=== PATIENT | male | born 1950 | race Caucasian/White ===

== ENCOUNTER → 2018-09-04 07:35 | Outpatient (CLI) | payer MEDICARE, OTHER, SELFPAY ==
[2018-09-04 08:43] LABS: INR 1.2 (0.9-1.3); Prothrombin Time 12.7 SECONDS (10.1-12.7)
[2018-09-04 09:18] LABS: Alanine Aminotransferase 50 IU/L (21-72); Albumin 4.8 g/dL (3.5-5.0); Albumin Globulin Ratio 1.7 (1.0-2.8); Alkaline Phosphatase 50 U/L (38-126); Aspartate Aminotransferase 39 IU/L (17-59); Bilirubin Total 0.5 mg/dL (0.2-1.3); Bilirubin Unconjugated 0.2 mg/dL (0.0-1.1); Globulin 2.9 g/dL (1.7-4.1); HEMOLYSIS < 15 (0-50); Total Protein 7.7 g/dL (6.3-8.2)
== END ==
PROVIDERS: Visit Provider Internal Medicine
DX: B18.2 Chronic viral hepatitis C (principal)
CPT/HCPCS: 36415; 80076; 85610

== ENCOUNTER → 2018-12-31 16:35 | Outpatient (CLI) | payer MEDICARE, OTHER, SELFPAY ==
--- NOTE | 2018-12-31 | DI.RAD.S_ITS ---
PROCEDURE: XR ANKLE LT MIN 3V INDICATIONS: PAIN IN LEFT ANKLE TECHNIQUE: 3 views of the ankle were acquired. COMPARISON: None. FINDINGS: Bones: No fractures or dislocations. Ankle mortise is normally aligned. No suspicious bony lesions. Prominent, fragmented plantar calcaneal spur Soft tissues: No tibiotalar joint effusion. Achilles tendon appears normal. Mild small vessel arterial calcification. IMPRESSION: No acute fractures. Prominent fragmented plantar calcaneal spur. Correlate with history of plantar fasciitis. Dictated by: Glory Dee M.D. on 12/31/2018 at 17:13 Approved by: Glory Dee M.D. on 12/31/2018 at 17:15
== END ==
PROVIDERS: PCP Internal Medicine; Visit Provider Internal Medicine
DX: M25.572 Pain in left ankle and joints of left foot (principal); M77.32 Calcaneal spur, left foot
CPT/HCPCS: 73610

== ENCOUNTER → 2019-02-08 08:55 | Outpatient (CLI) | payer MEDICARE, OTHER, SELFPAY ==
--- NOTE | 2019-02-08 | DI.US.S_ITS ---
PROCEDURE: US ABD AORTA ANEURYSM SCREEN INDICATIONS: ABDOMINAL AORTIC ANEURYSM SCREENING TECHNIQUE: Real time scanning was performed of the aorta and iliac arteries, with image documentation. COMPARISON: None. FINDINGS: Aorta: Proximal aortic diameter measures 2.8 cm. Mid-aorta measures 2.8 cm. Distal aortic diameter is 1.7 cm. Iliac arteries: Right common iliac artery measures 1.2 cm. Left common iliac artery measures 1.2 cm. IMPRESSION: No abdominal aortic aneurysm or aneurysm of the iliac arteries is found. Dictated by: Villa Hernandez M.D. on 02/08/2019 at 9:39 Approved by: Villa Hernandez M.D. on 02/08/2019 at 9:40
== END ==
PROVIDERS: PCP Internal Medicine; Visit Provider Internal Medicine
DX: Z13.6 Encounter for screening for cardiovascular disorders (principal)
CPT/HCPCS: 76706

== ENCOUNTER → 2019-05-27 10:33 | Outpatient (CLI) | payer MEDICARE, OTHER, SELFPAY ==
--- NOTE | 2019-05-27 | DI.RAD.S_ITS ---
PROCEDURE: XR CHEST 2V INDICATIONS: COUGH TECHNIQUE: 2 views of the chest were acquired. COMPARISON: None. FINDINGS: Surgical changes and devices: None. Lungs and pleura: Lungs are clear. No pleural effusions or pneumothorax. Mediastinum: Mediastinal contours are normal. Heart size is normal. Bones and chest wall: No suspicious bony abnormalities. Soft tissues appear unremarkable. IMPRESSION: No acute cardiopulmonary disease. Dictated by: Ty Page M.D. on 05/27/2019 at 10:53 Approved by: Ty Page M.D. on 05/27/2019 at 10:54
== END ==
PROVIDERS: PCP Internal Medicine; Visit Provider Internal Medicine
DX: R05 Cough (principal)
CPT/HCPCS: 71046

== ENCOUNTER 2019-10-21 14:18 | Inpatient (IN) | payer MEDICARE, OTHER, SELFPAY ==
[2019-10-21] VITALS (24 sets, daily range): BP systolic 97–143; BP diastolic 60–122; PULSE 71–107; RESP 11–22; TEMP 36.4–36.6; O2SAT 93–100; BMI 38.4; BMI 37.9
[2019-10-21] MEDS: methylPREDNISolone 125 MG/2 ML VIAL IV (14:20)
[2019-10-21] MEDS: ALBUTEROL 2.5 MG/3 ML NEB (ADULT) INH (14:25)
[2019-10-21] MEDS: EPINEPHrine 1 MG/ML AMPUL 0.3 MG IM (14:32)
[2019-10-21] MEDS: SODIUM CHLORIDE 0.9% 1,000 ML 150 ML IV (14:33)
[2019-10-21] MEDS: RACEPINEPHRINE 0.5 ML NEB INH ×2 (14:35→14:59)
[2019-10-21] MEDS: FAMOTIDINE 20 MG/50 ML PIGGYBACK 200 MG IV (14:38)
[2019-10-21 14:52] LABS: Add Manual Diff / Slide Review NO; Basophils Absolute Auto 100 /uL (0-100); Basophils Percent Auto 0.9 % (0-2); Eosinophils Absolute Auto 800 /uL (0-450); Eosinophils Percent Auto 6.5 % (2-4); Hematocrit 41.1 % (41-53); Hemoglobin 14.6 g/dL (13.5-17.5); Lymphocytes Absolute Auto 3200 /uL (1100-4500); Lymphocytes Percent Auto 27.1 % (25-40); Mean Corpuscular HGB Conc 35.4 % (30-36); Mean Corpuscular Hemoglobin 30.5 PG (26-34); Mean Corpuscular Volume 86.2 fL (80-100); Monocytes Absolute Auto 1100 /uL (0-900); Neutrophils Absolute Auto 6600 /uL (1500-7000); Neutrophils Percent Auto 56.5 % (50-75); Platelet Count 281 X10^3/uL (150-400); Red Blood Cell Count 4.77 X10^6/uL (4.5-5.9); Red Cell Distribution Width 14.3 % (11.6-14.8); White Blood Cell Count 11.7 X10^3/uL (4.5-11.0)
--- NOTE | 2019-10-21 14:53 | ED.ALLEREA ---
HPI - Allergic Reaction General Chief complaint: Allergic Reaction Stated complaint: Allergic Reaction, facial swelling Time Seen by Provider: 10/21/19 14:30 Source: EMS Mode of arrival: EMS Limitations: no limitations History of Present Illness HPI narrative: Patient is 69-year-old male on lisinopril presenting with possible allergic reaction and difficulty breathing. He said he was eating jalapeno olives he had approximately 5 when suddenly his face started swelling and had difficulty breathing. He was given epinephrine x2 by EMS and has had improvement in his facial swelling but still has a hoarse voice. He at no time had any rash or hives. He still has obvious swelling in his airway but able to talk and says that it is better. He has been on lisinopril for number of years he denies any previous reaction he has no known food allergies. MD complaint: facial swelling Onset (ago): minute(s) Exposure: food and medication Symptoms: facial swelling, difficulty swallowing, difficulty breathing and hoarseness Severity: moderate Treatment prior to arrival: benadryl and epinephrine Previous Allergic Reaction History: none Related Data Home Medications Medication Instructions Recorded Confirmed atorvastatin 20 mg tablet 20 mg PO DAILY 10/18/18 10/21/19 lisinopril 20 1 tab PO DAILY 10/18/18 10/21/19 mg-hydrochlorothiazide 12.5 mg tablet meloxicam 15 mg tablet 15 mg PO DAILY 10/18/18 10/21/19 pantoprazole 40 mg tablet,delayed 40 mg PO DAILY 10/18/18 10/21/19 release Respironics Dreamstation CPAP #1 ea 06/13/19 10/21/19 aspirin-caffeine 500 mg-32.5 mg 1,500 tab PO DAILY tab 09/13/19 10/21/19 tablet trazodone 50 - 100 mg PO BEDTIME PRN 10/21/19 10/21/19 Previous Rx's Medication Instructions Recorded dextroamphetamine-amphetamine ER 60 mg PO QAM #60 cap 09/13/19 30 mg 24hr capsule,extend release verapamil 120 mg tablet,extended 240 mg PO DAILY #60 tab 10/10/19 release Allergies Allergy/AdvReac Type Severity Reaction Status Date / Time lisinopril Allergy Verified 10/21/19 14:20 acetaminophen [From Vicodin] AdvReac Mild Vomitting Verified 10/21/19 14:20 hydrocodone [From Vicodin] AdvReac Mild Vomitting Verified 10/21/19 14:20 Review of Systems Review of Systems ROS Unobtainable: All systems reviewed & are unremarkable except as noted in HPI and below Constitutional Constitutional: Denies chills, Denies fever(s), Denies lethargy and Denies weakness Eyes Eyes: Denies change in vision, Denies eye discharge, Denies irritation and Denies loss of vision ENT Ears, Nose, Mouth, and Throat: Reports as per HPI and Reports hoarseness Cardiovascular Cardiovascular: Denies chest pain, Denies irregular heart rhythm, Denies lightheadedness, Denies palpitations, Denies dyspnea, Denies dyspnea on exertion and Denies orthopnea Respiratory Respiratory: Denies cough, Denies dyspnea, Denies dyspnea on exertion and Denies wheezing Gastrointestinal Gastrointestinal: Denies abdominal pain, Denies change in bowel habits, Denies diarrhea, Denies nausea and Denies vomiting Integumentary/Breasts Skin/Breast: Denies pruritus, Denies erythema, Denies rash and Denies wounds Neurologic Neurologic: Denies loss of vision and Denies weakness Endocrine Endocrine: Denies palpitations Allergic/Immunologic Allergic/Immunologic: Denies wheezing Patient History Medical History (Updated 10/21/19 @ 16:29 by Terence Weaver MD) Cluster headaches (Acute) Headache, migraine (Acute) Hyperlipidemia (Acute) Hypertension (Acute) Sleep apnea, organic (Acute) Torticollis, acute (Acute) Social History Smoking Status: Former smoker alcohol intake: former Smoking Status: Former smoker Exam Initial Vital Signs Initial Vital Signs: Vital Signs Pulse Rate 77 10/21/19 14:20 Respiratory Rate 20 10/21/19 14:20 Blood Pressure 136/88 10/21/19 14:20 Pulse Oximetry 98 10/21/19 14:20 GENERAL: Alert male maintaining airway hoarse voice HEENT: Head atraumatic,EOMI, pupils reactive, face symmetric, moist mucous membranes PHARYNX: Swelling of hard palate noted he is talking hoarse voice no respiratory distress no lip swelling slight tongue swelling CARDIOVASCULAR: Regular rate and rhythm without murmurs, rubs or gallops. RESPIRATORY: Breath sounds equal bilaterally, no wheezes rales or rhonchi. No drooling ABDOMEN: Soft, nontender. Normoactive bowel sounds all 4 quadrants. No guarding or rebound. EXTREMITIES: Normal range of motion, no clubbing or edema. Neurovascularly intact NEUROLOGICAL: Alert and oriented x4.Normal gait and speech. Cranial nerves II through XII grossly intact. SKIN: Warm, dry, no laceration, no petechiae, no rashes or lesions. Course Orders Ordered: ED Orders 10/21/19 14:30 EKG-12 Lead Stat 10/21/19 14:41 Complete Blood Count AUTO DIFF Stat Comprehensive Metabolic Panel Urgent Enoxaparin Sodium (Lovenox) 40 mg SUBCUT DAILY GEOVANNA Hydromorphone HCl (Dilaudid) 1 mg IV Q6HR PRN PRN Reason: Pain, Severe (7-10) Sodium Chloride (Normal Saline 0.9%) 1,000 mls @ 150 mls/hr IV CONT GEOVANNA Last Infusion: 10/21/19 18:21 Dose: 100 mls/hr Documented by: Infusion: 10/21/19 17:22 Dose: 150 mls/hr Documented by: Infusion: 10/21/19 16:53 Dose: 150 mls/hr Documented by: SEANTONLilian Admin: 10/21/19 14:33 Dose: 150 mls/hr Documented by: GROVER Propofol (Propofol) 1,000 mg in 100 mls @ 3.538 mls/hr IV TITRATE GEOVANNA; Protocol Last Titration: 10/21/19 19:08 Dose: 0 mcg/kg/min, 0 mls/hr Documented by: Titration: 10/21/19 17:38 Dose: 34.48 mcg/kg/min, 24.4 mls/hr Documented by: Titration: 10/21/19 17:22 Dose: 35.33 mcg/kg/min, 25 mls/hr Documented by: Titration: 10/21/19 16:28 Dose: 35 mcg/kg/min, 24.766 mls/hr Documented by: Titration: 10/21/19 16:20 Dose: 31.09 mcg/kg/min, 22 mls/hr Documented by: Admin: 10/21/19 16:01 Dose: 20 mcg/kg/min, 14.152 mls/hr Documented by: RSTONE Sodium Chloride (Normal Saline 0.9%) 1,000 mls @ 100 mls/hr IV CONT GEOVANNA Propofol (Propofol) 1,000 mg in 100 mls @ 3.538 mls/hr IV TITRATE GEOVANNA; Protocol Last Admin: 10/21/19 19:09 Dose: 35 mcg/kg/min, 24.766 mls/hr Documented by: Admin: 10/21/19 17:25 Dose: Not Given Documented by: GROVER Methylprednisolone (Solu-Medrol) 40 mg IV Q12HR GEOVANNA Naloxone HCl (Narcan) 0.2 mg IV Q2MIN PRN PRN Reason: Opiate Reversal Discontinued Medications Albuterol (Ventolin) 2.5 mg INH NOW ONE Stop: 10/21/19 14:31 Last Admin: 10/21/19 15:03 Dose: Not Given Documented by: GROVER Epinephrine (Epinephrine Racemic) 0.5 ml INH NOW ONE Stop: 10/21/19 14:31 Last Admin: 10/21/19 14:59 Dose: 0.5 ml Documented by: GROVER Epinephrine HCl (Adrenalin) 0.3 mg IM NOW ONE Stop: 10/21/19 14:31 Last Admin: 10/21/19 14:32 Dose: 0.3 mg Documented by: GROVER Hydromorphone HCl (Dilaudid) 1 mg IV NOW ONE Stop: 10/21/19 16:14 Last Admin: 10/21/19 16:23 Dose: 1 mg Documented by: GROVER Famotidine (Pepcid) 20 mg in 50 mls @ 200 mls/hr IV NOW ONE Stop: 10/21/19 14:44 Last Infusion: 10/21/19 14:53 Dose: 0 mls/hr Documented by: Admin: 10/21/19 14:38 Dose: 200 mls/hr Documented by: GROVER Lidocaine HCl (Xylocaine 2%) 20 ml INJ INTRA-OP ONE Stop: 10/21/19 15:37 Last Admin: 10/21/19 16:05 Dose: Not Given Documented by: GROVER Lorazepam (Ativan) 2 mg IV NOW ONE Stop: 10/21/19 16:22 Last Admin: 10/21/19 16:23 Dose: 2 mg Documented by: GROVER Methylprednisolone (Solu-Medrol 125 Mg Vial) 125 mg IV NOW ONE Stop: 10/21/19 14:31 Last Admin: 10/21/19 14:20 Dose: 125 mg Documented by: TAMI Propofol (Diprivan) 250 mg IV NOW ONE Stop: 10/22/19 15:39 Propofol (Diprivan) 250 mg IV NOW ONE Stop: 10/21/19 15:39 Last Admin: 10/21/19 16:30 Dose: 250 mg Documented by: GROVER Succinylcholine Chloride (Quelicin) 120 mg IV NOW ONE Stop: 10/21/19 15:39 Last Admin: 10/21/19 15:38 Dose: 120 mg Documented by: GROVER Vital Signs Vital signs: Vital Signs - 8 hr 10/21/19 14:20 10/21/19 14:23 10/21/19 14:30 Pulse Rate 77 75 86 Respiratory Rate 20 15 17 Blood Pressure 136/88 Blood Pressure [Left Arm] 139/85 127/77 Pulse Oximetry 98 100 97 10/21/19 14:39 10/21/19 14:49 10/21/19 15:03 Pulse Rate 81 87 73 Respiratory Rate 16 16 12 Blood Pressure Blood Pressure [Left Arm] 143/78 H 142/82 H 124/71 Pulse Oximetry 98 93 10/21/19 15:04 10/21/19 15:05 Pulse Rate 82 81 Respiratory Rate 11 L Blood Pressure Blood Pressure [Left Arm] 136/70 Pulse Oximetry 96 97 MDM - Allergic Reaction Lab Data Attestation: I reviewed the patient's lab results. Result diagrams: 10/21/19 14:41 10/21/19 14:41 Labs: Lab Results 10/21/19 10/21/19 Range/Units 14:41 14:41 WBC 11.7 H (4.5-11.0) X10^3/uL RBC 4.77 (4.5-5.9) X10^6/uL Hgb 14.6 (13.5-17.5) g/dL Hct 41.1 (41-53) % MCV 86.2 (80-100) fL MCH 30.5 (26-34) PG MCHC 35.4 (30-36) % RDW 14.3 (11.6-14.8) % Plt Count 281 (150-400) X10^3/uL Neut % (Auto) 56.5 (50-75) % Lymph % (Auto) 27.1 (25-40) % [place] % (Auto) 9.0 (3-14) % Eos % (Auto) 6.5 H (2-4) % Baso % (Auto) 0.9 (0-2) % Neut # (Auto) 6600 (6648-2872) /uL Lymph # (Auto) 3200 (9552-9432) /uL [place] # (Auto) 1100 H (0-900) /uL Eos # (Auto) 800 H (0-450) /uL Baso # (Auto) 100 (0-100) /uL Sodium 137 (137-145) mmol/L Potassium 4.3 (3.4-5.1) mmol/L Chloride 103 (98-107) mmol/L Carbon Dioxide 23 (22-32) mmol/L BUN 30 H (9-20) mg/dL Creatinine 1.40 H (0.66-1.25) mg/dL Estimated GFR 50.4 L (>60) mL/min BUN/Creatinine Ratio 21.4 (6-22) Glucose 108 (80-110) mg/dL Calcium 9.3 (8.4-10.2) mg/dL Total Bilirubin 0.5 (0.2-1.3) mg/dL AST 42 (17-59) IU/L ALT 48 (<50) IU/L Alkaline Phosphatase 63 (38-126) U/L Total Protein 7.7 (6.3-8.2) g/dL Albumin 4.6 (3.5-5.0) g/dL Globulin 3.1 (1.7-4.1) g/dL Albumin/Globulin Ratio 1.5 (1.0-2.8) Imaging Data Chest x-ray: Radiologist's Impression: PROCEDURE: XR CHEST 1V INDICATIONS: INTUBATION TECHNIQUE: One view of the chest was acquired. COMPARISON: [facility], , XR CHEST 2V, 05/27/2019, 10:36. FINDINGS: Surgical changes and devices: An endotracheal tube is identified with the tip positioned at approximately 5 cm above the level of the ivy. Lungs and pleura: There are low lung volumes. Mildly prominent perihilar interstitial markings are present. There is no definite pneumothorax or effusion. Mediastinum: Mediastinal contours appear normal. Heart size is normal. Bones and chest wall: No suspicious bony lesions. Overlying soft tissues appear unremarkable. IMPRESSION: 1. Endotracheal tube appears to be in appropriate position. 2. Mild vascular congestion with possible areas of mild atelectasis. Dictated by: Shawn Kendrick M.D. on 10/21/2019 at 15:34 MDM Narrative Medical decision making narrative: Patient presented stable with hoarse voice but signs concerning for angioedema secondary to lisinopril rather than anaphylactic reaction to a food. He really had minimal improvement with epinephrine although he says it was quite a lot. 3rd dose of epinephrine was given any had no change. Racemic epinephrine was also tried to help decrease the swelling that also did not help. Anesthesiology was called for anticipation of difficult airway. It was decided to electively intubate. Patient was agreeable to this he also agreed that I call and notify his of the events. Anesthesia intubated without difficulty. Hospitalist Dr. Weaver was fortunately able to evaluate prior to intubation. He accepted patient for admission for angioedema. I called and spoke with Ursula who was updated on patient's symptoms and test results and understands that he will be intubated for airway protection. Discharge Plan Departure Patient Disposition: Admitted As Inpatient Clinical Impression: Angioedema Qualifiers: Encounter type: initial encounter Qualified Code(s): T78.3XXA - Angioneurotic edema, initial encounter Discharge Date/Time: 10/21/19 17:06 Admit Date/Time: 10/21/19 15:26 Admit Provider: Terence Weaver
[2019-10-21 15:05] LABS: Alanine Aminotransferase 48 IU/L (<50); Albumin 4.6 g/dL (3.5-5.0); Albumin Globulin Ratio 1.5 (1.0-2.8); Alkaline Phosphatase 63 U/L (38-126); Aspartate Aminotransferase 42 IU/L (17-59); BUN Creatinine Ratio 21.4 (6-22); Bilirubin Total 0.5 mg/dL (0.2-1.3); Blood Urea Nitrogen 30 mg/dL (9-20); Calcium 9.3 mg/dL (8.4-10.2); Carbon Dioxide 23 mmol/L (22-32); Chloride 103 mmol/L (98-107); Estimated Glomerular Filt Rate 50.4 mL/min (>60); Globulin 3.1 g/dL (1.7-4.1); Glucose 108 mg/dL (80-110); HEMOLYSIS 22 (0-50); Potassium 4.3 mmol/L (3.4-5.1); Sodium 137 mmol/L (137-145); Total Protein 7.7 g/dL (6.3-8.2)
[2019-10-21] MEDS: MIDAZOLAM 5 MG/ML VIAL (15:30)
[2019-10-21] MEDS: KETAMINE 500 MG/5 ML INJ (15:36)
[2019-10-21] MEDS: SUCCINYLCHOLINE 100 MG/5 ML INJ 120 MG IV (15:38)
--- NOTE | 2019-10-21 15:44 | PC.NURSE ---
intubated left lip 23cm at right lip. 7.0 ett. vent being titrated at this point
[2019-10-21] MEDS: fentaNYL 100 MCG/2 ML INJ (15:50)
[2019-10-21] MEDS: PROPOFOL 1,000 MG/100 ML VIAL 14.152 MG IV (16:01)
--- NOTE | 2019-10-21 16:06 | PM.PROC.1 ---
Procedures Date/Time Date of procedure: 10/21/19 Time of procedure: 15:43 Intubation Time out performed: Yes Sedative: other (midazolam 5mg, ketamine 50mg, propofol 50+50+50) Paralytic: succinylcholine Mg given: 120 Laryngoscope: other (Glidescope LP3) ET tube size: 7 ET tube uncuffed: No Tube secured depth (cm): 23 Tube secured location: teeth Tube placement confirmation: visualized tube passing through cords, equal breath sounds bilaterally, no breath sounds over epigastrium and confirmation by capnometry Patient tolerated procedure: well Intubation complications: none Additional comments: Mallampati 3, with large, edematous uvula on visual inspection. Upon laryngoscopy with the glidescope, prominent posterior oropharyngeal edema was also noted, creating a significantly narrowed oropharynx, while no edema of arytenoids or glottis was noted. 7.0 cuffed ETT passed easily through glottis and was secured by RT.
--- NOTE | 2019-10-21 16:08 | PC.NURSE ---
updated by phone. Questions answered.
--- NOTE | 2019-10-21 16:21 | DI.RAD.S_ITS ---
PROCEDURE: XR CHEST 1V INDICATIONS: INTUBATION TECHNIQUE: One view of the chest was acquired. COMPARISON: [facility], CR, XR CHEST 2V, 05/27/2019, 10:36. FINDINGS: Surgical changes and devices: An endotracheal tube is identified with the tip positioned at approximately 5 cm above the level of the ivy. Lungs and pleura: There are low lung volumes. Mildly prominent perihilar interstitial markings are present. There is no definite pneumothorax or effusion. Mediastinum: Mediastinal contours appear normal. Heart size is normal. Bones and chest wall: No suspicious bony lesions. Overlying soft tissues appear unremarkable. IMPRESSION: 1. Endotracheal tube appears to be in appropriate position. 2. Mild vascular congestion with possible areas of mild atelectasis. Dictated by: Shawn Kendrick M.D. on 10/21/2019 at 15:34 Approved by: Shawn Kendrick M.D. on 10/21/2019 at 15:41
[2019-10-21] MEDS: HYDROMORPHONE 0.5 MG INJ 1 MG IV (16:23)
[2019-10-21] MEDS: LORazepam 2 MG/ML INJ IV (16:23)
--- NOTE | 2019-10-21 16:27 | P.HP_ITS ---
History of Present Illness History of Present Illness Date Patient Seen: 10/21/19 Time Patient Seen: 15:30 Chief complaint: Allergic Reaction, facial swelling Narrative: Patient is a 69-year-old male presented initially to clinic with complaints of throat swelling and directed to the ER. On initial evaluation, he was noted to have muffled speech and posterior swelling of his airway. He was given various treatments including recent marck epi, IM epi, Solu-Medrol, and albuterol with lack of improvement of presenting symptoms. Anesthesia was called and after further consultation it seemed prudent to intubate patient to protect his airway. Patient noticed onset of symptoms after he had some Olives with jalopena pepper. He has no history of food allergy. 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 He has no prior history of angioedema and denies any new exposures to food or medications. He did mention having trouble recently with swallowing dry foods and felt he was aspirating with eating dry foods. His noted over phone to ER doc that he had had some cough over the past couple weeks. He denied any fevers. He has been compliant with his CPAP therapy for sleep apnea but does note frequent daytime sleepiness. [facility]. PCP is Dr. Anoop Sauceda. Patient History Medical History Hypertension (Acute) Family & Social History Safety & Behavioral: Feels Safe in Current Yes Environment Been Physically Hurt or No Threatened By a Person Tobacco & Substance use: Smoking Status Former smoker Meds Home Medications and Allergies Home Medications Medication Instructions Recorded Confirmed Type atorvastatin 20 mg tablet 20 mg PO DAILY 10/18/18 10/21/19 History lisinopril 20 1 tab PO DAILY 10/18/18 10/21/19 History mg-hydrochlorothiazide 12.5 mg tablet meloxicam 15 mg tablet 15 mg PO DAILY 10/18/18 10/21/19 History pantoprazole 40 mg tablet,delayed 40 mg PO DAILY 10/18/18 10/21/19 History release Respironics Dreamstation CPAP #1 ea 06/13/19 10/21/19 History aspirin-caffeine 500 mg-32.5 mg 1,500 tab PO DAILY tab 09/13/19 10/21/19 History tablet dextroamphetamine-amphetamine ER 60 mg PO QAM #60 cap 09/13/19 10/21/19 Rx 30 mg 24hr capsule,extend release verapamil 120 mg tablet,extended 240 mg PO DAILY #60 tab 10/10/19 10/21/19 Rx release trazodone 50 - 100 mg PO BEDTIME PRN 10/21/19 10/21/19 History Allergies Allergy/AdvReac Type Severity Reaction Status Date / Time lisinopril Allergy Verified 10/21/19 14:20 acetaminophen [From Vicodin] AdvReac Mild Vomitting Verified 10/21/19 14:20 hydrocodone [From Vicodin] AdvReac Mild Vomitting Verified 10/21/19 14:20 Review of Systems Review of Systems ROS Unobtainable: All systems reviewed & are unremarkable except as noted in HPI and below Exam Vital Signs (past 8 hours): - 10/21/19 14:20 10/21/19 14:23 10/21/19 14:30 Pulse Rate 77 75 86 Respiratory Rate 20 15 17 Blood Pressure 136/88 Blood Pressure [Left Arm] 139/85 127/77 Pulse Oximetry 98 100 97 10/21/19 14:39 10/21/19 14:49 10/21/19 15:03 Pulse Rate 81 87 73 Respiratory Rate 16 16 12 Blood Pressure Blood Pressure [Left Arm] 143/78 H 142/82 H 124/71 Pulse Oximetry 98 93 10/21/19 15:04 10/21/19 15:05 10/21/19 15:27 Pulse Rate 82 81 85 Respiratory Rate 11 L Blood Pressure Blood Pressure [Left Arm] 136/70 137/70 Pulse Oximetry 96 97 10/21/19 15:36 10/21/19 16:06 Pulse Rate 83 104 H Respiratory Rate 14 19 Blood Pressure Blood Pressure [Left Arm] 127/70 139/122 H Pulse Oximetry 100 97 Oxygen Delivery Method Room Air Narrative Exam Narrative: GENERAL: Alert patient with muffled speech and pursed lip breathing HEAD: Atraumatic. Normocephalic. No facial swelling. EYES: Pupils equal, round and reactive. Extraocular motions intact. No scleral icterus. No injection or drainage. OROPHARYNX: No periorbital swelling, no tongue swelling. However uvula and posterior pharynx are markedly swollen. NECK: Trachea midline. No lymphadenopathy. CARDIOVASCULAR: Regular rate and rhythm without murmurs, gallops, or rubs. RESPIRATORY: Clear to auscultation bilaterally. GASTROINTESTINAL: Abdomen nondistended, soft, non-tender. No hepato- splenomegaly, no palpable masses. EXTREMITIES: No pretibial edema. NEUROLOGICAL: Alert, well oriented, normal bilateral upper and lower extremity strength SKIN: warm, dry, no hives or petechiae Objective Labs Result Diagrams: 10/21/19 14:41 10/21/19 14:41 Labs: Laboratory Results - last 24 hr 10/21/19 10/21/19 14:41 14:41 WBC 11.7 H RBC 4.77 Hgb 14.6 Hct 41.1 MCV 86.2 MCH 30.5 MCHC 35.4 RDW 14.3 Plt Count 281 Neut % (Auto) 56.5 Lymph % (Auto) 27.1 [place] % (Auto) 9.0 Eos % (Auto) 6.5 H Baso % (Auto) 0.9 Neut # (Auto) 6600 Lymph # (Auto) 3200 [place] # (Auto) 1100 H Eos # (Auto) 800 H Baso # (Auto) 100 Sodium 137 Potassium 4.3 Chloride 103 Carbon Dioxide 23 BUN 30 H Creatinine 1.40 H Estimated GFR 50.4 L BUN/Creatinine Ratio 21.4 Glucose 108 Calcium 9.3 Total Bilirubin 0.5 AST 42 ALT 48 Alkaline Phosphatase 63 Total Protein 7.7 Albumin 4.6 Globulin 3.1 Albumin/Globulin Ratio 1.5 Assessment & Plan Assessment & Plan narrative: This is a 69-year-old male presenting with acute posterior pharynx swelling and difficulty maintaining his airway. 1. Acute angioedema, without anaphylaxis, present on admission -possibly secondary to acute allergic reaction. He has mild elevated WBC with eosinophilia. He has no new exposures to medications. Differential diagnosis includes SAW-inhibitor angioedema although he has been on lisinopril for the past 15 years which makes it unlikely. Also possible is a hereditary type angioedema. -intubated in the ER to protect airway -Solu-Medrol 120 mg IV administered in ER -continue Solu-Medrol 40 mg IV b.i.d. and taper with 5-7 days of prednisone once patient able to take p.o. 2. Ventilator management -elevate head of bed 30?, Lovenox DVT prophylaxis, oral suction as needed -propofol drip for sedation, delighted 1 mg IV q.6 hours as needed for pain management 3. Hypertension -consider discontinuing lisinopril HCT although unlikely this is SAW-inhibitor induced angioedema, consider switching to angiotensin receptor patricia diuretic combination, continue his verapamil on discharge 4. Obstructive sleep apnea -managed with vent, on CPAP at home 5. Dysphagia -patient had noted recent difficulty with swallowing dry foods with possible aspiration, but it's unlikely this is connected to his angioedema -obtain swallow evaluation after extubation Total critical care management of over 60 minutes in patient with acute airway compromise requiring intubation.
[2019-10-21] MEDS: PROPOFOL 200 MG/20 ML VIAL 250 MG IV (16:30)
[2019-10-21 16:54] LABS: HCO3 ABG 22 mmol/L (22-26); PCO2 ABG 41.4 mmHg (35-45); PO2 ABG 98 mmHg (80-100); pH ABG 7.34 (7.35-7.45)
[2019-10-21 16:55] LABS: Oxygen Saturation ABG 97 % (95-100); TCO2 ABG 23 mmol/L (21-31)
--- NOTE | 2019-10-21 17:11 | PC.NURSE ---
frequent vital signs printed, labeled and placed w/ chart.
--- NOTE | 2019-10-21 17:54 | PC.NURSE ---
pt arrived to ER with a very swollen airway. left side. difficulty speaking.. gave multiple meds with no decrease in swelling. on phone with Md reported that he had a cough x 2 weeks. airway edema and swelling unchange. Dr. Nolasco arrived and we intubated pt. 2:1 nursing care. pt required multiple drugs to sedate him for the intubation. pt continued to butt the vent and needed increase sedation. propofol drip, see Mar for administration of drugs.
--- NOTE | 2019-10-21 18:11 | PC.NURSE ---
pt was on vent settings of 450, 60 percent and rate 18. abg drawn. pt was on etco2 prior to intubation 27-30
--- NOTE | 2019-10-21 18:38 | PC.NURSE ---
Addendum entered by Cleopatra Ramos R.N. 10/21/19 21:57: 2150 - Pt restless and agitated following oral care. Arching back, shaking head and pulling against restraints. Propofol continues at 35mcg/kg/min. Dilaudid given for discomfort. Ask pt about temperature, offered to provided fan, Pt able to shake his head yes. Fan provided. RT titrating Fio2 down to 30%. Sats 95%. Addendum entered by Cleopatra Ramos R.N. 10/21/19 19:16: 1900 - Pt's in to see pt. Reports that the newest medication was prescribed by the [facility] and that dosing was recently double. Medication summary shows Verapamil ordered by [facility]. Hospitalist notified. Original Note: 6646 - Pt to room from ER. Transfer via slider board. Vent settings per RT, Fio2 60% peep 5, TV 450, RR 18. Pt agitated with repositioning, coughing, reaching for ET tube. Restraints secured. ET tube 23 at the teeth. Propofol infusion at 35mcg/kg/min. Pt diaphoretic. IV drsg to right hand changed and both secured with Coban. Dr. Weaver at bedside, gave update to pt sister. Pt sister reports that pt has a cyclical history with substance abuse, prescriptions and/or alcohol. But she believes him to be clean at this time, for approximately 3 years. Explanations of care provided. HOB elevated to 30 degrees. Monitor.
[2019-10-21] MEDS: PROPOFOL 1,000 MG/100 ML VIAL 24.766 MG IV ×2 (19:09→23:02)
[2019-10-21] MEDS: SODIUM CHLORIDE 0.9% 1,000 ML 100 ML IV (21:29)
[2019-10-21] MEDS: HYDROMORPHONE 1 MG INJ IV (21:45)
[2019-10-22] VITALS (33 sets, daily range): BP systolic 91–156; BP diastolic 38–86; PULSE 55–78; RESP 16–26; TEMP 36.1–36.9; O2SAT 92–97; BMI 37.8
--- NOTE | 2019-10-22 01:23 | PC.NURSE ---
Bundle Wrapper Notes-At midnight, patient is lightly sedated, rouses to voice, is oriented to situation, and follows directions. Becomes anxious and mildly agitated during oral care and ETT sx, copious white secretions sx, increased propofol to 45mcg/min, soft wrist restraint secured. BP elevated to 156/79. 0100-Patient is calmly sedated, HR 75, BP 109/60(77), propofol gtt titrated to 40mcg/min, will continue to monitor.
[2019-10-22] MEDS: HYDROMORPHONE 1 MG INJ IV (03:18)
[2019-10-22] MEDS: PROPOFOL 1,000 MG/100 ML VIAL 31.842 MG IV ×3 (05:09→21:55)
[2019-10-22 05:11] LABS: Add Manual Diff / Slide Review NO; Basophils Absolute Auto 0 /uL (0-100); Basophils Percent Auto 0.1 % (0-2); Eosinophils Absolute Auto 0 /uL (0-450); Hematocrit 40.4 % (41-53); Hemoglobin 13.6 g/dL (13.5-17.5); Lymphocytes Absolute Auto 700 /uL (1100-4500); Lymphocytes Percent Auto 5.4 % (25-40); Mean Corpuscular HGB Conc 33.6 % (30-36); Mean Corpuscular Volume 89.2 fL (80-100); Monocytes Absolute Auto 500 /uL (0-900); Monocytes Percent Auto 3.5 % (3-14); Neutrophils Absolute Auto 12100 /uL (1500-7000); Platelet Count 271 X10^3/uL (150-400); Red Blood Cell Count 4.53 X10^6/uL (4.5-5.9); Red Cell Distribution Width 14.5 % (11.6-14.8); White Blood Cell Count 13.3 X10^3/uL (4.5-11.0)
[2019-10-22 05:19] LABS: BUN Creatinine Ratio 25.5 (6-22); Blood Urea Nitrogen 28 mg/dL (9-20); Calcium 8.7 mg/dL (8.4-10.2); Carbon Dioxide 21 mmol/L (22-32); Chloride 102 mmol/L (98-107); Estimated Glomerular Filt Rate > 60.0 mL/min (>60); Glucose 145 mg/dL (80-110); HEMOLYSIS < 15 (0-50); Potassium 4.3 mmol/L (3.4-5.1); Sodium 134 mmol/L (137-145)
[2019-10-22] MEDS: PROPOFOL 1,000 MG/100 ML VIAL 35.38 MG IV ×4 (07:48→16:02)
[2019-10-22] MEDS: SODIUM CHLORIDE 0.9% 1,000 ML 100 ML IV ×2 (07:48→17:27)
[2019-10-22] MEDS: ENOXAPARIN 40 MG/0.4 ML SYRINGE SUBCUT (07:50)
--- NOTE | 2019-10-22 08:18 | P.PN_ITS ---
Subjective Subjective Date Patient Seen: 10/22/19 Interval history: Patient is 69-year-old male admitted with acute angioedema causing airway compromise. He is seen in ICU and remains intubated on mechanical ventilation. Per nursing he became anxious and pulling at lines when weaned down on propofol sedation during the night. Exam Vital Signs (past 8 hours): - 10/22/19 01:00 10/22/19 02:00 10/22/19 03:00 Temperature Pulse Rate 75 78 76 Respiratory Rate 19 18 19 Blood Pressure 109/60 115/64 102/45 L Pulse Oximetry 94 94 94 10/22/19 04:00 10/22/19 05:04 10/22/19 06:00 Temperature 97.4 F L Pulse Rate 73 73 69 Respiratory Rate 18 18 18 Blood Pressure 105/63 108/60 126/59 L Pulse Oximetry 94 94 93 10/22/19 07:00 10/22/19 08:00 Temperature 97 F L Pulse Rate 67 74 Respiratory Rate 18 18 Blood Pressure 96/58 L 99/56 L Pulse Oximetry 93 94 Fraction of Inspired Oxygen 30 Oxygen Delivery Method Mechanical Ventilation Narrative Exam Narrative: General: Sedated on vent HEENT: ET tube, no periorbital or facial swelling Neck: No soft tissue neck swelling Lungs: Clear to auscultation Heart: Regular rhythm Abdomen: Soft Extremities: No edema Objective Labs Result Diagrams: 10/22/19 04:30 10/22/19 04:30 Labs: Laboratory Results - last 24 hr 10/21/19 10/21/19 10/21/19 14:41 14:41 16:35 WBC 11.7 H RBC 4.77 Hgb 14.6 Hct 41.1 MCV 86.2 MCH 30.5 MCHC 35.4 RDW 14.3 Plt Count 281 Neut % (Auto) 56.5 Lymph % (Auto) 27.1 [place] % (Auto) 9.0 Eos % (Auto) 6.5 H Baso % (Auto) 0.9 Neut # (Auto) 6600 Lymph # (Auto) 3200 [place] # (Auto) 1100 H Eos # (Auto) 800 H Baso # (Auto) 100 ABG pH 7.34 L ABG pCO2 41.4 ABG pO2 98 ABG HCO3 22 ABG Total CO2 23 ABG O2 Saturation 97 ABG Base Excess -4.0 L FiO2 0.60 Sodium 137 Potassium 4.3 Chloride 103 Carbon Dioxide 23 BUN 30 H Creatinine 1.40 H Estimated GFR 50.4 L BUN/Creatinine Ratio 21.4 Glucose 108 Calcium 9.3 Total Bilirubin 0.5 AST 42 ALT 48 Alkaline Phosphatase 63 Total Protein 7.7 Albumin 4.6 Globulin 3.1 Albumin/Globulin Ratio 1.5 Nasal Screen MRSA (PCR) 10/21/19 10/22/19 10/22/19 18:20 04:30 04:30 WBC 13.3 H RBC 4.53 Hgb 13.6 Hct 40.4 L MCV 89.2 D MCH 30.0 MCHC 33.6 RDW 14.5 Plt Count 271 Neut % (Auto) 91.0 H D Lymph % (Auto) 5.4 L D [place] % (Auto) 3.5 Eos % (Auto) 0.0 L Baso % (Auto) 0.1 Neut # (Auto) 83621 H Lymph # (Auto) 700 L [place] # (Auto) 500 Eos # (Auto) 0 Baso # (Auto) 0 ABG pH ABG pCO2 ABG pO2 ABG HCO3 ABG Total CO2 ABG O2 Saturation ABG Base Excess FiO2 Sodium 134 L Potassium 4.3 Chloride 102 Carbon Dioxide 21 L BUN 28 H Creatinine 1.10 Estimated GFR > 60.0 BUN/Creatinine Ratio 25.5 H Glucose 145 H Calcium 8.7 Total Bilirubin AST ALT Alkaline Phosphatase Total Protein Albumin Globulin Albumin/Globulin Ratio Nasal Screen MRSA (PCR) Negative for mrsa Assessment & Plan Assessment & Plan narrative: This is a 69-year-old male presenting with acute posterior pharynx swelling and difficulty maintaining his airway. 1. Acute angioedema, without anaphylaxis, present on admission -intubated in the ER on 10/21/2019 due to severe posterior pharyngeal swelling causing airway compromise -He had mild elevated WBC with eosinophilia on admission labs. Eosinophilia suggestive of allergic mediated angioedema. He has been on lisinopril for the past 15 years and SAW-inhibitor angioedema is possibility although typically it occurs in 1st few months of therapy. Differential diagnosis also includes hereditary type angioedema and idiopathic angioedema. -discontinue lisinopril-hct -Solu-Medrol 120 mg IV administered in ER -continue Solu-Medrol 40 mg IV b.i.d. and taper with 5-7 days of prednisone once patient able to take p.o. -continue intubation until tomorrow a.m. due to patient at high risk post extubation based on degree of his airway edema 2. Ventilator management -elevate head of bed 30?, Lovenox DVT prophylaxis, oral suction as needed, soft wrist restraints as needed -propofol drip for sedation, hydromorphone 1 mg IV q.6 hours as needed for pain management 3. Hypertension -discontinue lisinopril HCT in case this is SAW-inhibitor induced angioedema -for outpatient BP control, continue verapamil ER 240 mg daily which patient is probably taking for headache prevention, consider adding thiazide diuretic and usually angiotensin receptor blockers can be well tolerated in patients with SAW-inhibitor induced angioedema 4. Obstructive sleep apnea -managed with vent, on CPAP at home 5. Dysphagia -patient had noted recent difficulty with swallowing dry foods with possible aspiration, but it's unlikely this is connected to his angioedema -obtain swallow evaluation after extubation Quality VTE Deep Vein Thrombosis/Pulmonary Embolism Present on Admission: No
[2019-10-22] MEDS: LORazepam 2 MG/ML INJ 1 MG IV ×2 (08:56→21:13)
--- NOTE | 2019-10-22 13:53 | CM.DANOTE ---
Discharge Planning/Care Management DCP: assessment: case received and discussed in Team Rounds. EMR reviewed. Pt is a 69 year old male who admitted yesterday late afternoon to care of hospitalist team. Dr. Weaver is seeing him today. PCP: Dr. Anoop Sauceda Pt also is [facility], has started recently with the [facility] and the [facility] (uses home CPAP). Payer: Medicare and [employer] D j Admission status: INPT: confirmed by UR RN Maldonado. Dr. Weaver noted that pt is on ventilator support with initial plan to attempt wean cancelled and with a trial of same expected tomorrow. Full dx and treatment plan are in process. Etiology of angioedema is not yet determined. A check in with pt shows him on ventilator in the ICU. White board in room is updated with CM/DCP contact info. Documentation shows that pt's has been in contact with the physician team. P: DCP team will follow as POC unfolds for further discussions with pt, as able, and his family re d/c issues and options. CM Discharge Assessment Start: 10/22/19 13:52 Freq: Status: Active Protocol: Document 10/22/19 13:52 ITV (Rec: 10/22/19 13:53 ITV [id number]) Discharge Planning Assessment Advance Directives? No History Provided By Medical Record Has Patient been admitted in last 30 No days? Is patient alert and oriented? Yes Whiteboard Updated in Patient Room with Yes name and ext. # of Yard Pilot Review Status In Process
--- NOTE | 2019-10-22 14:24 | PC.NURSE ---
Day Shift Note Pt on ventilator and sedated on propofol 50 mcg/kg/min on AM assessment, initially assessed at RASS of -2 but pt became more anxious and awake throughout morning. Eyes open, tracking, and pulling against restraints/attempting to pull out lines. Reoriented to place and situation but pt continued to exhibit anxious behaviors. MD called and order for Ativan obtained and given, pt now resting calmly. Intermittent suctioning of clear secretions throughout shift. SpO2 94% on FiO2 of 0.30. Lungs clear bilaterally. NSR in the 60s when calm. Britt catheter in place and draining clear yellow urine. Soft wrist restraints in place bilaterally. Bed alarm on. Turning every 2 hours. Update to twice this shift - requests information about pt only be given out to her (Ursula) and daughters Odette and Jacqui. Chart has been updated accordingly. Per request of pt's , pt's wallet and cell phone were given to Melinda Torrez (sister) to take home - this was done this afternoon.
--- NOTE | 2019-10-22 20:20 | PC.NURSE ---
Addendum entered by Cleopatra Ramos R.N. 10/22/19 22:22: 2220 - Pt RASS -3 following ativan administration. However continues to be bradycardic with HR in the 50's. Propofol titrated down to 40mcg/kg/min. BP 130/72. Addendum entered by Cleopatra Ramos R.N. 10/22/19 21:30: 2115 - Pt with increased agitation. Pulling against restraints. Attempting to reach for ET tube. Moving head from side to side. Oral care r/t excessive oral secretions. Pt biting on tube and suction swab. Attempt to reorient and provide reassurance. Pt grabbed hold of my hand squeezing tightly and attempting to twist fingers, taking time to encourage pt to release food beverage attendant. Ativan given. Propofol gtt remains at 45 mcg/kg/min. Original Note: 1899 - Propofol titrated down to 45mcg/kg/min. RASS score of -3 and HR 55. Monitor. 1950 - Pt with coughing jag. Oral care and suction. Reposition. Continued cough. Small amount of white secretions. Pt restless, O2 breath given during care. Sat 92%. 1999 - Pt sat down to 88%. Tubing check. ET tube 23 at the teeth, unchanged from prior assessment. No air leak auscultated. FIO2 titrated up to 35%. RT called. Cuff check, and adjusted. Monitor. Restraints remain in place. Reoriented to place and situation. Reassurance provided.
[2019-10-23] VITALS (20 sets, daily range): BP systolic 134–168; BP diastolic 72–90; PULSE 53–88; RESP 15–23; TEMP 36.1–37.3; O2SAT 94–99
[2019-10-23] MEDS: HYDROMORPHONE 1 MG INJ IV (00:43)
--- NOTE | 2019-10-23 01:07 | PC.NURSE ---
0100-Patient has been calmly sedated with propofol gtt at 40mcg/min, but becomes anxious during coughing and sx. Asked patient to squeeze my hand if you are in pain He did squeeze with his right hand. 1mg IV Dilaudid given per prn.
[2019-10-23] MEDS: PROPOFOL 1,000 MG/100 ML VIAL 28.304 MG IV ×2 (01:49→05:03)
[2019-10-23] MEDS: SODIUM CHLORIDE 0.9% 1,000 ML 100 ML IV (03:25)
--- NOTE | 2019-10-23 07:44 | RT ---
CUFF LEAK CHECKED (GOOD LEAK W/ NO AIR IN ETT CUFF). PT EXTUBATED POST 7 MINUTES OF PSV 5/CPAP 5, PER VERBAL ORDER BY DR. FLAHERTY. PT PLACED ON 2 LPM N/C POST. O2 SAT ON 2 LPM N/C NOTED AT 98%, W/ RR OF 20.
--- NOTE | 2019-10-23 08:37 | PC.NURSE ---
Addendum entered by Tiffany Bruce R.N. 10/23/19 14:07: PT CONTINUES TO HAVE INTERMITTENT STRONG COUGH- CONTACTED DR FLAHERTY RE: HTN, AND HE ORDERED VERAPAMIL ( PTS HOME RX) TO START TODAY RATHER THAN IN AM- Addendum entered by Tiffany Bruce R.N. 10/23/19 14:03: PT'S SISTER BROUGHT HIS WALLET AND PHONE TO RETURN TO PT- HE DECLINED PLACING IN HOSPITAL SAFE Addendum entered by Tiffany Bruce R.N. 10/23/19 09:37: PT AMBULATED WITH ASSIST OF ONE STAFF MEMBER AND USE OF WALKER - SITTING UP IN CHAIR AT PRESENT, ROOM AIR SPO2 92-96% IVF CONTINUE Original Note: PT ABLE TO BE EXTUBATED AT 0745- TO 2L NC WITH SPO2 OF 96-97% NO NOTED OR PERCEIVED RESP DISTRESS OR DIFFICULTIES, STRONG COUGH NOTED- TAKING SIPS/CHIPS WITHOUT PROBLEM - GAVIN. TELEPHONE UPDATE TO - KIRA
--- NOTE | 2019-10-23 09:15 | PM.PN.1 ---
Subjective Subjective Date Patient Seen: 10/23/19 Interval history: Patient is 69-year-old male admitted with acute angioedema causing airway compromise. He is seen in ICU and extubated today. He appears stable post extubation. Exam Vital Signs (past 8 hours): - 10/23/19 02:00 10/23/19 03:00 10/23/19 04:00 Temperature Pulse Rate 56 L 66 54 L Respiratory Rate 18 18 18 Blood Pressure 151/81 H 146/84 H 134/76 Pulse Oximetry 96 98 96 10/23/19 05:00 10/23/19 06:00 10/23/19 07:01 Temperature 96.9 F L Pulse Rate 59 L 53 L 54 L Respiratory Rate 18 18 18 Blood Pressure 140/80 134/76 Pulse Oximetry 96 96 97 10/23/19 07:28 10/23/19 08:00 Temperature Pulse Rate 67 Respiratory Rate 15 Blood Pressure 140/83 Pulse Oximetry 98 98 Fraction of Inspired Oxygen 35 Oxygen Delivery Method Nasal Cannula Oxygen Flow Rate 2 Narrative Exam Narrative: General: Slightly groggy post extubation, no acute distress, speech does not seem muffled like before Lungs: Clear to auscultation Heart: Regular rhythm Abdomen: Soft Extremities: No edema Neurological: Appears oriented to person and place, follow simple commands Objective Labs Result Diagrams: 10/22/19 04:30 10/22/19 04:30 Assessment & Plan Assessment & Plan narrative: This is a 69-year-old male presenting with acute posterior pharynx swelling and difficulty maintaining his airway. 1. Acute angioedema, without anaphylaxis, present on admission -extubated a.m. 10/23/2019, intubated in the ER on 10/21/2019 due to severe posterior pharyngeal swelling causing airway compromise -He had mild elevated WBC with eosinophilia on admission labs. Eosinophilia suggestive of allergic mediated angioedema. He has been on lisinopril for the past 15 years and SAW-inhibitor angioedema is possibility although typically it occurs in the first few months of therapy. Differential diagnosis also includes hereditary type angioedema and idiopathic angioedema. -discontinue lisinopril-hct -Solu-Medrol 120 mg IV administered in ER, then on Solu-Medrol 40 mg IV b.i.d. -switched to prednisone 40 mg q.d. when patient able to take p.o. and taper dose over 5-7 days -monitor in ICU times 24 hours as patient at risk of recurrent angioedema -patient had mention feeling of food getting stuck in back of throat and having to cough about 1 week and then again 4 days prior to admission which may correlate with onset of angioedema -patient's was concerned of delayed ambulance response where they live outside of [place], and we discussed giving him a prescription for prednisone to take 40 mg with Benadryl 25-50 mg for recurrent angioedema while waiting for medics to arrive 2. Hypertension -discontinued lisinopril HCT for possible SAW-inhibitor induced angioedema -for outpatient BP control, continue verapamil ER 240 mg daily which patient is probably taking for headache prevention, consider adding thiazide diuretic if needed and usually angiotensin receptor blockers can be given in patients with SAW-inhibitor induced angioedema 4. Obstructive sleep apnea -on CPAP at home 5. Dysphagia -patient had noted recent difficulty with swallowing dry foods with possible aspiration, possibly related to onset of angioedema -obtain swallow evaluation post extubation Quality VTE Deep Vein Thrombosis/Pulmonary Embolism Present on Admission: No
[2019-10-23] MEDS: ENOXAPARIN 40 MG/0.4 ML SYRINGE SUBCUT (09:46)
--- NOTE | 2019-10-23 09:56 | PC.NURSE ---
SPOKE VIA TELEPHONE TO TOI DUTTA (SPEECH PATHOLOGIST) -SHE WILL BE IN THE AM-AND PROBABLY PERFORM MBS WITH RADIOLOGY DUE TO RECENT HX OF DYSPHAGIA - AND IS AGREEMENT WITH CURRENT DIET ORDER UNTIL THEN
[2019-10-23] MEDS: VERAPAMIL SR 240 MG TABLET PO (12:39)
[2019-10-23] MEDS: HYDROCODONE/ACET 5/325 TABLET 1 TAB PO ×2 (12:40→17:05)
--- NOTE | 2019-10-23 14:04 | PT.IIE ---
Current Diagnoses Angioneurotic edema, initial encounter (10/21/19) Medical History (Last Updated 10/21/19 @ 16:29 by Terence Weaver MD) Cluster headaches (Acute) Headache, migraine (Acute) Hyperlipidemia (Acute) Hypertension (Acute) Sleep apnea, organic (Acute) Torticollis, acute (Acute) Physical Therapy Inpatient Evaluation/Re-Eval M1 PT/OT-IP Prior Functional Status Start: 10/23/19 13:19 Freq: NEEDED Status: Active Protocol: Document 10/23/19 13:51 [facility] (Rec: 10/23/19 14:04 [facility] [id number]) Medical Review Prior Functional Status Medical History Reviewed Yes Diet/Fluid Consistency Regular Communication WNL Mobility and Gait Pt reports does not use AD. He walks his dogs typically. Activities of Daily Living and IADL's Pt reports independence with ADLs & cooking/cleaning. Pt drives Prior Functional Level (Other details) hx of LBP Social History Household Members significant other Living Arrangements House Number of Floors (Floors) Two Floors Number of Stairs To Enter/Railing? pt reports a couple steps to enter with rail Home Environment Standard Height Toilet,Walk in Shower Employment Status Retired Additional Social History Comment Pt sleeps in a recliner d/t back pain M2 PT-IP Current Condition Start: 10/23/19 13:19 Freq: NEEDED Status: Active Protocol: Document 10/23/19 13:51 [facility] (Rec: 10/23/19 14:04 [facility] [id number]) Physical Therapy Current Condition Current Condition Evaluation Date 10/23/19 Treatment Diagnosis allergic reaction, weakness, difficulty in walking Weight Bearing Status Weight Bearing Status Full Weight Bearing M3 PT-IP Subjective Start: 10/23/19 13:19 Freq: NEEDED Status: Active Protocol: Document 10/23/19 13:51 [facility] (Rec: 10/23/19 14:04 [facility] [id number]) Subjective Physical Therapy Visit Type Type Initial Evaluation Visit Start Time 13:26 Visit Stop Time 13:50 Total Visit Minutes 24 Number of WASHROOM OPERATOR Visits 0 Physical Therapy Visit Comments Patient Comments Pt agrees to get out of bed. Reprots typically a little SOB w/amb Therapy Pain Assessment Pain When Pain Assessed At Rest Pain Present Pain Present Pain Reported Location LBP Intensity 2 Scale Used Numeric (1 - 10) M4 PT-IP Mobility and Gait Start: 10/23/19 13:19 Freq: NEEDED Status: Active Protocol: Document 10/23/19 13:51 [facility] (Rec: 10/23/19 14:04 [facility] [id number]) PT-Bed Mobility Assessment Supine to Sit Supine to Sit Standby Assistance,Head of Bed Elevated,Bedrails Sit to Supine Sit to Supine Independent,Head of Bed Elevated Scooting Scooting to Edge of Bed Standby Assistance Scooting Up and Down in Bed Standby Assistance PT-Transfer Assessment Sit to and From Stand Sit to and from Stand Standby Assistance,Use of Upper Extremities Equipment Transfer Assistive Device Gait Belt Comments Mobility Comments Pt stood to amb around hallway then return to bed Gait Assessment Gait Gait Assistance Required: Contact Guard Assist Distance (Feet) 150 Assistive Devices Assistive Device Gait Belt Orthotic/Prosthetic Devices or Brace: No Gait Deviations General Gait Pattern Decreased Stride Length, Lateral Trunk Lean Factors Limiting Gait Function Factors Limiting Gait Function Decreased Activity Tolerance, Pain,Poor Balance Comments Gait Comments pt amb in hallways of ICU with no LOB but slight unsteadiness and pt reproted feeling some unsteadiness and poor walking mechancis d/t not being up much since hospitalization. He was able to stand and hold onto wall and lift one foot up at a time to adjust each sock 2x during walk. Stair Climbing Assessment Evaluation Level of Assist On Stairs Contact Guard Assistance Devices Stair Climbing Assistive Devices Right Railing Technique/Endurance Stair Climbing Direction Ascend and Descend Stair Climbing Technique Step to Step Number of Steps Climbed 4 Query Text: Comments Stair Climbing Comments Pt was able to go up/down portable step with CGA with some unsteadiness with decent backwards and some inc difficulty with ascending. PT-Balance Assessment Sitting Balance and Reactions Static Sitting Balance Ability Good Dynamic Sitting Balance Ability Good Standing Balance and Reactions Static Standing Balance Ability Good Dynamic Standing Balance Ability Fair M5 PT-IP Objective Assessments Start: 10/23/19 13:19 Freq: NEEDED Status: Active Protocol: Document 10/23/19 13:51 [facility] (Rec: 10/23/19 14:04 [facility] [id number]) Orientation Orientation/Cognition Level of Alertness Alert Orientation Name,Place,Situation Language Function Ability No Deficits Noted Safety Awareness Understands Safety Issues Memory Description No Deficits Noted Strength Lower Extremity Strength Assessment Bilaterally Impaired Comments Strength Comments mildly weak B as evident with functional taks M6 PT-IP Treatment Start: 10/23/19 13:19 Freq: NEEDED Status: Active Protocol: Document 10/23/19 13:51 [facility] (Rec: 10/23/19 14:04 [facility] [id number]) Physical Therapy Treatment Education Education Provided Safety M7 PT-IP Assessment and Plan Start: 10/23/19 13:19 Freq: NEEDED Status: Active Protocol: Document 10/23/19 13:51 [facility] (Rec: 10/23/19 14:04 [facility] [id number]) PT Summary Assessment and Plan Potential Rehabilitation Potential Excellent Status of Condition at Evaluation Stable Summary Impairments Pain,Strength,Balance, Transfers,Gait,Activity Tolerance Assessment Summary Pt is motivated to participate and return home as 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 Some unsteadiness was noted during gait, but pt did not have any LOB. He was able to ascend and descend stairs CGA and would benefit from PT to cont to work on stability with gait & stairs. Educated to nursing to encourage pt to walk with them throughout the day also. Goals Bed Mobility Goal Independent Transfer Goal Independent Gait Goal Independent Gait Distance 200ft Other Goals Pt will be indep with up/down 13 stairs with rail. Days to Meet Goals 4 Frequency of Treatment Frequency Of Treatment Once a Day Treatment Plan Physical Therapy Treatment Plan Bed Mobility Training,Transfer Training,Gait Training, Therapeutic Exercise,Balance Retraining,Discharge Planning, Neuromuscular Re-ed Recommendations To Nursing Amount of Assist Needed 1 Person Assist Discharge Recommendations PT Discharge Recommendations Home with Assistance, Outpatient PT Other Discharge Recommendations possible OP PT for strengthening & for LBP as needed
[2019-10-23] MEDS: SODIUM CHLORIDE 0.9% 1,000 ML 75 ML IV (15:39)
--- NOTE | 2019-10-23 16:03 | PC.NURSE ---
Addendum entered by Cleopatra Ramos R.N. 10/23/19 20:09: 2000 - Pt up SBA to bathroom. Return to bed, snack provided. Pt need encouragement to consume food slowly. No cough. Denies throat swelling, discomfort or feelings of SOB. Using ice pack to head and neck, reports pain controlled at 3 of 10. Discussed new BP medication. Pt verbalized understanding. Reinforced safety and call light use. Call light in reach. Addendum entered by Cleopatra Ramos R.N. 10/23/19 17:09: 1700 - Pt agreeable to get up to the chair for meal. Encouraged slow po intake. Continues to rate pain 3/10. Vicodin and coffee provided. Original Note: 1530 - Pt SBA to bathroom. +Void. Back in bed. Pt reports headache, 3 of 10. Concerned with increasing intensity r/t his cluster migraines. Reviewed home meds. Ice pack provided. Contacting provided. Reinforced safety and call light use. Call light in reach.
[2019-10-24] MEDS: SODIUM CHLORIDE 0.9% 1,000 ML 75 ML IV (04:02)
[2019-10-24] MEDS: HYDROCODONE/ACET 5/325 TABLET 1 TAB PO ×3 (04:02→13:07)
[2019-10-24 04:13] VITALS: BP 135/75; PULSE 55; RESP 18; TEMP 36.7; O2SAT 98
[2019-10-24 04:52] LABS: Blood Urea Nitrogen 26 mg/dL (9-20); Calcium 8.3 mg/dL (8.4-10.2); Carbon Dioxide 25 mmol/L (22-32); Chloride 107 mmol/L (98-107); Estimated Glomerular Filt Rate > 60.0 mL/min (>60); Glucose 102 mg/dL (80-110); HEMOLYSIS < 15 (0-50); Sodium 139 mmol/L (137-145)
[2019-10-24 04:53] LABS: Add Manual Diff / Slide Review NO; Basophils Absolute Auto 100 /uL (0-100); Basophils Percent Auto 0.5 % (0-2); Eosinophils Absolute Auto 100 /uL (0-450); Eosinophils Percent Auto 0.4 % (2-4); Hemoglobin 13.1 g/dL (13.5-17.5); Lymphocytes Absolute Auto 2300 /uL (1100-4500); Lymphocytes Percent Auto 16.2 % (25-40); Mean Corpuscular HGB Conc 34.6 % (30-36); Mean Corpuscular Hemoglobin 30.4 PG (26-34); Mean Corpuscular Volume 87.9 fL (80-100); Monocytes Absolute Auto 1200 /uL (0-900); Neutrophils Absolute Auto 10800 /uL (1500-7000); Neutrophils Percent Auto 74.9 % (50-75); Platelet Count 207 X10^3/uL (150-400); Red Blood Cell Count 4.32 X10^6/uL (4.5-5.9); Red Cell Distribution Width 14.8 % (11.6-14.8); White Blood Cell Count 14.4 X10^3/uL (4.5-11.0)
[2019-10-24 08:15] VITALS: BP 133/81; PULSE 65; RESP 18; TEMP 36.7; O2SAT 97
[2019-10-24] MEDS: PANTOPRAZOLE 40 MG TABLET PO (08:27)
[2019-10-24] MEDS: ENOXAPARIN 40 MG/0.4 ML SYRINGE SUBCUT (08:27)
[2019-10-24] MEDS: ATORVASTATIN 20 MG TABLET PO (08:28)
[2019-10-24] MEDS: predniSONE 20 MG TABLET 40 MG PO (08:28)
[2019-10-24] MEDS: TRIAMTERENE/HCTZ 37.5/25 TABLET 1 CAP PO (08:29)
[2019-10-24] MEDS: carvediloL 6.25 MG TABLET PO (08:29)
--- NOTE | 2019-10-24 09:06 | DI.RAD.S_ITS ---
PROCEDURE: FL BARIUM SWALLOW W SPEECH INDICATIONS: RECENT DYSPHAGIA AND INTUBATION FOR ANGIOEDEMA TECHNIQUE: Examination was conducted in conjunction with speech pathology per standard protocol. In the lateral projection, filming was performed of the patient swallowing. AP projection filming may also be performed with patient swallowing. COMPARISON: None. FINDINGS: Function: The oral preparatory phase appears normal, with proper containment. The subsequent oral propulsive phase, pharyngeal phase, and esophageal phase of swallowing also appear normal with all proffered substances. No laryngotracheal penetration or aspiration. No pathologic vallecular pooling. Morphology: No cricopharyngeal bar is identified. No cervical esophageal webs. No Zenker's diverticulum. No strictures. IMPRESSION: No evidence of laryngeal penetration or aspiration. Dictated by: Sanjeev Mcknight M.D. on 10/24/2019 at 13:56 Approved by: Sanjeev Mcknight M.D. on 10/24/2019 at 13:56
[2019-10-24 09:11] VITALS: BP 157/74; PULSE 76; RESP 20; O2SAT 97
--- NOTE | 2019-10-24 09:21 | PT.IPTN ---
Current Diagnoses Angioneurotic edema, initial encounter (10/21/19) Physical Therapy Treatment Note M2 PT-IP Current Condition Start: 10/23/19 13:19 Freq: NEEDED Status: Active Protocol: Document 10/23/19 13:51 [facility] (Rec: 10/23/19 14:04 LR [email or web address]) Physical Therapy Current Condition Current Condition Evaluation Date 10/23/19 Treatment Diagnosis allergic reaction, weakness, difficulty in walking Weight Bearing Status Weight Bearing Status Full Weight Bearing M3 PT-IP Subjective Start: 10/23/19 13:19 Freq: NEEDED Status: Active Protocol: Document 10/24/19 09:05 SP (Rec: 10/24/19 10:26 SP [email or web address]) Subjective Physical Therapy Visit Type Type Treatment Note Visit Start Time 09:05 Visit Stop Time 09:21 Total Visit Minutes 16 Number of FRONT END SOFTWARE DEVELOPER Visits 1 Physical Therapy Visit Comments Patient Comments Pt agreeable to work with PT, just finished shower with nursing. Therapy Pain Assessment Pain Present Pain Present Denied Pain M4 PT-IP Mobility and Gait Start: 10/23/19 13:19 Freq: NEEDED Status: Active Protocol: Document 10/24/19 09:05 SP (Rec: 10/24/19 10:26 SP [email or web address]) PT-Bed Mobility Assessment Supine to Sit Supine to Sit Independent Sit to Supine Sit to Supine Independent Scooting Scooting to Edge of Bed Independent Scooting Up and Down in Bed Independent PT-Transfer Assessment Sit to and From Stand Sit to and from Stand Standby Assistance,Use of Upper Extremities Equipment Transfer Assistive Device Gait Belt Comments Mobility Comments Pt was walking back from shower with nursing home social worker when arrived. Pt was able to complete supine to/ from sitting with HOB flat I, cued for using log roll technique to assist LB comfort with good demonstration. Pt stated his LB starts to hurt when laying flat on his back for to long, slept on his side last night but usually sleeps in a recliner at home. Pt was seated at EOB with nursing assist when left tx. Gait Assessment Gait Gait Assistance Required: Standby Assistance Distance (Feet) 640 Assistive Devices Assistive Device Gait Belt Orthotic/Prosthetic Devices or Brace: No Gait Deviations General Gait Pattern Decreased Stride Length, Lateral Trunk Lean Factors Limiting Gait Function Factors Limiting Gait Function Poor Balance,Respiratory Distress Comments Gait Comments Pt was able to ambulate further distances today approx 640 ft no AD SBA, noted some unsteadiness and demonstrated poor walking mechanics lateral wt shift trunk lean during LLE advancement at times but self recovery. Pt demonstrated shortness of breath as distance progressed but improved post safety cuing for slower pacing and diaphramatic breathing techniques. Vitals pre gait 157/74, HR 69 bpm 98% O2 sat on room air, Post gait: 98% O2 on room air, 80bpm. Stair Climbing Assessment Evaluation Level of Assist On Stairs Standby Assistance Devices Stair Climbing Assistive Devices Right Railing Technique/Endurance Stair Climbing Direction Ascend and Descend Stair Climbing Technique Step to Step Number of Steps Climbed 12 Comments Stair Climbing Comments Pt was able to go up/down portable step with SBA, stable . PT-Balance Assessment Sitting Balance and Reactions Static Sitting Balance Ability Good Dynamic Sitting Balance Ability Good Standing Balance and Reactions Static Standing Balance Ability Good Dynamic Standing Balance Ability Fair M5 PT-IP Objective Assessments Start: 10/23/19 13:19 Freq: NEEDED Status: Active Protocol: Document 10/23/19 13:51 [facility] (Rec: 10/23/19 14:04 [facility] [email or web address]) Orientation Orientation/Cognition Level of Alertness Alert Orientation Name,Place,Situation Language Function Ability No Deficits Noted Safety Awareness Understands Safety Issues Memory Description No Deficits Noted Strength Lower Extremity Strength Assessment Bilaterally Impaired Comments Strength Comments mildly weak B as evident with functional taks M6 PT-IP Treatment Start: 10/23/19 13:19 Freq: NEEDED Status: Active Protocol: Document 10/24/19 09:05 SP (Rec: 10/24/19 10:26 SP [email or web address]) Physical Therapy Treatment Education Education Provided Safety M7 PT-IP Assessment and Plan Start: 10/23/19 13:19 Freq: NEEDED Status: Active Protocol: Document 10/24/19 09:05 SP (Rec: 10/24/19 10:26 SP [email or web address]) PT Summary Assessment and Plan Potential Rehabilitation Potential Excellent Status of Condition at Evaluation Stable Summary Impairments Pain,Strength,Balance, Transfers,Gait,Activity Tolerance Assessment Summary Pt is motivated to participate and return home as 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 Some unsteadiness was noted during gait, but pt did not have any LOB. He was able to ascend and descend stairs SBA. Recommend DC patient home with assist, oupatient PT for strength for LBP, balance, and continued energy conservation techniques. Goals Bed Mobility Goal Independent Transfer Goal Independent Gait Goal Independent Gait Distance 200ft Other Goals Pt will be indep with up/down 13 stairs with rail. Days to Meet Goals 4 Frequency of Treatment Frequency Of Treatment Once a Day Treatment Plan Physical Therapy Treatment Plan Bed Mobility Training,Transfer Training,Gait Training, Therapeutic Exercise,Balance Retraining,Discharge Planning, Neuromuscular Re-ed Recommendations To Nursing Amount of Assist Needed Standby Assistance Discharge Recommendations PT Discharge Recommendations Home with Assistance, Outpatient PT Other Discharge Recommendations possible OP PT for strengthening & for LBP as needed
--- NOTE | 2019-10-24 10:15 | ST.SWALLOW ---
ST Modified Barium Swallow Study HOME AIDE Modified Barium Swallow Study Start: 10/24/19 11:13 Freq: Status: Active Protocol: Document 10/24/19 11:14 [facility] (Rec: 10/24/19 11:25 TLC [id number]) Modified Barium Swallow Study Total Time Visit Start Time 10:00 Visit Stop Time 10:15 Total Visit Minutes [address] Weaver Reason for Referral hx of dysphagia past 2 weeks Setting Setting Acute Care Patient Information Identification Type Name Patient History Patient is 1-day s/p extubation due to angioedema suspected to be related to medication allergy. Patient reports increased difficulty swallowing for the last two weeks leading up to his hospitalization. No prior history of dysphagia. Subjective Observations Patient is awake, alert and oriented. Patient Positioning Position View Lateral Imaging Lateral View Textures Administered Trials Presented Thin Liquid via Spoon,Thin Liquid via Cup,[place] Liquid via Spoon,[place] Liquid via Cup,Honey Liquid via Spoon, Dysphagia Blenderized Textures ,Regular Textures Oral Phase Source: MBSIMP (TM) (C) Bolus Specific Scoring Grid Lip Closure No Impairment (WNL) Tongue Control During Bolus Hold Minimal Impairment Bolus Prep/Mastication No Impairment (WNL) Bolus Transport/Lingual Motion No Impairment (WNL) Oral Residue No Impairment (WNL) Nasal Regurgitation No Additional Oral Phase Observations Anterior loss of bolus during bolus hold with thin liquids. Pharyngeal swallow initiation delayed to the level of the pyriform sinus. Pharyngeal Phase Source: MBSIMP (TM) (C) Bolus Specific Scoring Grid Delayed Initiation of Pharyngeal Swallow Yes Soft Palate Elevation No Impairment (WNL) Laryngeal Elevation No Impairment (WNL) Anterior Hyoid Movement Minimal Impairment Vallecular Residue Yes Laryngeal Vestibular Closure No Impairment (WNL) Pharyngeal Stripping Wave No Impairment (WNL) Upper Esophageal Sphincter Opening No Impairment (WNL) Additional Pharyngeal Phase Observations No penetration or aspiration observed during the study. Collection of residue in the vallecula and trace residue on the aryepiglottic folds decreased but did not completely clear with dry swallows. A/P View Esophageal Observations Esophageal Function Not observed Clinical Impressions Findings Patient presents with functional swallow without observation of penetration or aspiration. Recommend compensatory strategies of decreasing bolus size, slowing rate of intake and implementation of double swallow to decrease pharyngeal residue. Verbal and written education provided to patient who verbalized understanding of results. Patient Appropriate for Therapy No Recommendations Diet Liquids Order Thin Diet Order Regular Medication Recommendation As Tolerated Aspiration Precautions Recommended Precautions Upright at 90 Degrees,Small Bites/Sips,Double Swallow Additional Precautions Slow rate of intake Treatment Plan Placement Recommendation After Discharge Home
[2019-10-24 11:28] VITALS: BP 143/71; PULSE 63; RESP 18; TEMP 37.2; O2SAT 98
--- NOTE | 2019-10-24 12:46 | PM.DS.1 ---
History of Present Illness History of Present Illness Date Patient Seen: 10/24/19 Time Patient Seen: 12:46 Chief complaint: Allergic Reaction, facial swelling Narrative: As per Dr. Weaver, Patient is a 69-year-old male presented initially to clinic with complaints of throat swelling and directed to the ER. On initial evaluation, he was noted to have muffled speech and posterior swelling of his airway. He was given various treatments including recent marck epi, IM epi, Solu-Medrol, and albuterol with lack of improvement of presenting symptoms. Anesthesia was called and after further consultation it seemed prudent to intubate patient to protect his airway. Patient noticed onset of symptoms after he had some Olives with jalopena pepper. He has no history of food allergy. He has been on SAW-inhibitor therapy for the past 15 years. He has no prior history of angioedema and denies any new exposures to food or medications. He did mention having trouble recently with swallowing dry foods and felt he was aspirating with eating dry foods. His noted over phone to ER doc that he had had some cough over the past couple weeks. He denied any fevers. He has been compliant with his CPAP therapy for sleep apnea but does note frequent daytime sleepiness. [facility]. PCP is Dr. Anoop Sauceda. Discharge Providers Provider Date of admission: 10/21/19 15:26 Discharge Date: 10/24/19 Primary care physician: Anoop Sauceda MD Consults: 10/23/19 07:53 Consult to Speech Therapy Evaluate & Treat Comment: swallow eval Physician Instructions: Evaluate and treat 10/23/19 10:05 Consult to Physical Therapy Evaluate & Treat Comment: Physician Instructions: Evaluate and Treat Discharge provider: Jose Richmond DO Summary Hospital Course Discharge Diagnosis: 1. Acute angioedema, without anaphylaxis, present on admission, resolved. 2. Hypertension, chronic, present on admission 3. Obstructive sleep apnea, chronic, present on admission 4. Dysphagia, acute Hospital Course: This is a 69-year-old male presenting with acute posterior pharynx swelling and difficulty maintaining his airway. 1. Acute angioedema, without anaphylaxis, present on admission -extubated a.m. 10/23/2019, intubated in the ER on 10/21/2019 due to severe posterior pharyngeal swelling causing airway compromise -He had mild elevated WBC with eosinophilia on admission labs. Eosinophilia suggestive of allergic mediated angioedema. He has been on lisinopril for the past 15 years and SAW-inhibitor angioedema is possibility although typically it occurs in the first few months of therapy. Differential diagnosis also includes hereditary type angioedema and idiopathic angioedema. -discontinued lisinopril-hct and verapamil upon discharge. Regimen as noted below for HTN. -Solu-Medrol 120 mg IV administered in ER, then on Solu-Medrol 40 mg IV b.i.d. Patient discharged on prednisone 40 mg x2 days, 30 mg x2 days, 20 mg x2 days, and 10 mg x2 days. -patient had mention feeling of food getting stuck in back of throat and having to cough about 1 week and then again 4 days prior to admission which may correlate with onset of angioedema, evaluated by speech therapy which showed no concern for aspiration. Recommended small bolus size and double swallow. 2. Hypertension -discontinued lisinopril HCT for possible SAW-inhibitor induced angioedema -for outpatient BP control, started coreg and triamterine HCTZ. Patient to follow up with outpatient provider / PCP for further titration. 3. Obstructive sleep apnea -on CPAP at home which he should continue 4. Dysphagia -patient had noted recent difficulty with swallowing dry foods with possible aspiration, possibly related to onset of angioedema -swallow evaluation as noted above. Exam Vital Signs (past 8 hours): - 10/24/19 08:15 10/24/19 09:11 10/24/19 11:28 Temperature 98.1 F 98.9 F Pulse Rate 65 76 63 Respiratory Rate 18 20 18 Blood Pressure 133/81 157/74 H 143/71 H Pulse Oximetry 97 97 98 Fraction of Inspired Oxygen 35 Oxygen Delivery Method Room Air Oxygen Flow Rate 0 Narrative Exam Narrative: GENERAL APPEARANCE: Well developed, well nourished, in no acute distress. SKIN: Inspection of the skin reveals no rashes, ulcerations or petechiae. HEENT: The sclerae were anicteric and conjunctivae were pink and moist. Extraocular movements were intact and pupils were equal, round with normal accommodation. External inspection of the ears and nose showed no scars, lesions, or masses. Lips, teeth, and gums showed normal mucosa. The oral mucosa, hard and soft palate, tongue and posterior pharynx were unremarkable. NECK: Supple and symmetric. There was no thyroid enlargement, and no tenderness, or masses were felt. CHEST: Normal AP diameter and normal contour without any kyphoscoliosis. LUNGS: Auscultation of the lungs revealed no wheezes, rhonchi, or rales. CARDIOVASCULAR: There was a regular rate and rhythm without any murmurs, gallops, rubs. Peripheral pulses were 2+ and symmetric. ABDOMEN: Soft and nontender with normal bowel sounds. No ascites was noted. MUSCULOSKELETAL: There was no tenderness or effusions noted. Muscle strength and tone were normal. EXTREMITIES: No cyanosis, clubbing or edema. NEUROLOGIC: Alert and oriented x 3. Normal affect. Gait was normal. Strength is +5/5 in the Upper Extremities and Lower Extremities Bilaterally. Sensation to touch was normal. Objective Labs Result Diagrams: 10/24/19 04:30 10/24/19 04:30 Labs: Laboratory Results - last 24 hr 10/24/19 10/24/19 04:30 04:30 WBC 14.4 H RBC 4.32 L Hgb 13.1 L Hct 38.0 L MCV 87.9 MCH 30.4 MCHC 34.6 RDW 14.8 Plt Count 207 Neut % (Auto) 74.9 Lymph % (Auto) 16.2 L [place] % (Auto) 8.0 Eos % (Auto) 0.4 L Baso % (Auto) 0.5 Neut # (Auto) 24779 H Lymph # (Auto) 2300 [place] # (Auto) 1200 H Eos # (Auto) 100 Baso # (Auto) 100 Sodium 139 Potassium 4.0 Chloride 107 Carbon Dioxide 25 BUN 26 H Creatinine 1.00 Estimated GFR > 60.0 BUN/Creatinine Ratio 26.0 H Glucose 102 Calcium 8.3 L Discharge Plan Discharge Plan Patient Disposition: Home Discharge comment: You were admitted to the hospital with upper airway swelling that required you to be intubated. This is called angioedema. It is unclear why this happened to you, but could be result of lisinopril or verapamil. These medications were discontinued, and your started on a slightly different blood pressure medication. You are being discharged on a short course of steroids. You should follow up with your primary care provider for further titration of your blood pressure in the next 1-2 weeks. Patient reported some issues with swallowing after extubation, underwent a barium swallow without evidence of aspiration. He was cleared for discharge home. Discharge orders & Medications Prescriptions: New carvedilol [Coreg] 6.25 mg Tablet 6.25 mg PO BID 30 Days Qty: 60 RF: 0 prednisone 10 mg tablet See Rx Instructions .ROUTE .COMPLEX Qty: 20 RF: 0 triamterene-hydrochlorothiazid [Maxzide-25mg] 37.5-25 mg Tablet 1 tab PO DAILY 30 Days Qty: 30 RF: 0 Continued meloxicam 15 mg tablet 15 mg PO DAILY RF: 0 atorvastatin 20 mg tablet 20 mg PO DAILY RF: 0 pantoprazole 40 mg tablet,delayed release (DR/EC) 40 mg PO DAILY RF: 0 Edd Back and Body 500-32.5 mg tablet 1,500 tab PO DAILY RF: 0 dextroamphetamine-amphetamine [Adderall XR] 30 mg capsule,extended release 24hr 60 mg PO QAM Qty: 60 RF: 0 trazodone 100 mg tablet 50 - 100 mg PO BEDTIME PRN (Reason: sleep) RF: 0 Discontinued lisinopril-hydrochlorothiazide 20-12.5 mg tablet 1 tab PO DAILY RF: 0 verapamil 120 mg tablet extended release 240 mg PO DAILY Qty: 60 RF: 2 No Action (DME) Respironics Dreamstation CPAP Qty: 1 RF: 0 Follow up/Referrals: Anoop Sauceda MD [Primary Care Provider] - Discharge Health Status Health Concerns: Angioedema Diet/Activity/Treatments Diet comment: decrease food size, swallow twice Discharge Data Primary Care Provider: Anoop Sauceda V Quality VTE Deep Vein Thrombosis/Pulmonary Embolism Present on Admission: No
== END 2019-10-24 14:09 | disposition home or self-care (01) | DRG 916 ==
LOC: ED 15:11 → AC 15:27 → ICU 17:35
PROVIDERS: Admitting Provider Internal Medicine; Emergency Provider Emergency Medicine; PCP Internal Medicine; Visit Provider Internal Medicine
DX: T78.3XXA Angioneurotic edema, initial encounter (principal); N17.9 Acute kidney failure, unspecified; R13.10 Dysphagia, unspecified; G47.33 Obstructive sleep apnea (adult) (pediatric); I10 Essential (primary) hypertension; T46.1X5A Adverse effect of calcium-channel blockers, initial encounter
CPT/HCPCS: 36415; 36600; 51701; 71045; 74230; 80048; 80053; 82805; 82962; 85025; 87797; 92611; 93005; 94002; 94003; 94640; 94770; 94799; 96361; 96374; 96375; 97116; 97161; 97530; 99285; 99291; 99292; J0171; J0330; J1170; J1650; J2060; J2250; J2704; J2920; J2930; J3010; J7613

== ENCOUNTER → 2019-11-01 08:08 | Outpatient (CLI) | payer MEDICARE, OTHER, SELFPAY ==
[2019-10-22 09:02] VITALS: BMI 37.8
[2019-10-23 07:28] VITALS: PULSE 60; RESP 23; O2SAT 98
--- NOTE | 2019-11-01 08:10 | DI.MRI.S_ITS ---
PROCEDURE: MR BRAIN (PITUITARY) WWO CON INDICATIONS: migarines + cluster headches. TECHNIQUE: Noncontrast sagittal and axial FLAIR, axial gradient echo, axial diffusion and ADC through the brain. Thin-slice sagittal and coronal T1 spin echo, coronal T2 fast spin echo through the pituitary. After the administration contrast, optional dynamic coronal T1 spin echo, thin-slice coronal and sagittal T1 spin echo images through the pituitary fossa; axial T1 spin echo with fat saturation through the brain. COMPARISON: None. FINDINGS: Image quality: Excellent. Pituitary Gland: Pituitary gland has normal size and contour. No areas of relative delayed postcontrast enhancement is identified the pituitary gland. Pituitary infundibulum is midline. Pituitary gland has normal thickness and normal postcontrast enhancement. The optic chiasm is normal. No suprasellar masses are identified. The cavernous sinus demonstrates normal postcontrast enhancement. CSF Spaces: Ventricles are normal in size and shape. Basal cisterns are patent. No extra-axial fluid collections. Brain: No intracranial bleeds or mass effects. There is mild, diffuse cerebral volume loss. There are mild periventricular and subcortical white matter chronic microvascular ischemic changes. No abnormal intracranial enhancement. Rowell-white matter interface is intact. Diffusion weighted images demonstrate no acute ischemic insults. Brainstem is normal. Normal intravascular flow voids are present. Skull and face: Calvarial marrow is normal in signal. Orbits appear normal. Sinuses: Mild mucosal thickening noted in the maxillary sinuses bilaterally. Small amount of fluid noted in the dependent portions of the right posterior air cells. IMPRESSION: 1. No evidence of pituitary adenoma. 2. No acute intracranial disease process. 3. No abnormal intracranial mass or suspicious postcontrast enhancement. 4. Mild, diffuse cerebral volume loss. 5. Mild periventricular and subcortical white matter chronic microvascular ischemic change. 6. Mild bilateral maxillary sinus mucosal thickening. Please correlate with clinical history to exclude sinusitis. 7. Small amount of fluid in the right mastoid air cells. Recommend correlation with direct physical findings to differentiate serous fluid from an inflammatory process. Dictated by: Shavon Hassan MD, PhD on 11/01/2019 at 10:43 Approved by: Shavon Hassan MD, PhD on 11/01/2019 at 11:12
== END ==
PROVIDERS: PCP Internal Medicine; Visit Provider Family Medicine
DX: G43.909 Migraine, unspecified, not intractable, without status migrainosus (principal)
CPT/HCPCS: 70553; A9579

== ENCOUNTER 2020-01-06 17:35 | Observation (INO) | payer MEDICARE, OTHER, SELFPAY ==
[2019-10-22 09:02] VITALS: BMI 37.8
[2019-10-23 07:28] VITALS: PULSE 60; RESP 23; O2SAT 98
[2020-01-06] VITALS (10 sets, daily range): BP systolic 137–171; BP diastolic 78–96; PULSE 63–82; RESP 12–24; TEMP 36.3–37.2; O2SAT 97–100; BMI 37.0
[2020-01-06] MEDS: diphenhydrAMINE 50 MG/ML VIAL (18:02)
[2020-01-06] MEDS: methylPREDNISolone 125 MG/2 ML VIAL IV (18:02)
[2020-01-06] MEDS: EPINEPHrine 1 MG/ML 0.4 MG IM (18:02)
[2020-01-06] MEDS: FAMOTIDINE 20 MG/50 ML PIGGYBACK 200 MG IV (18:03)
[2020-01-06] MEDS: RACEPINEPHRINE 0.5 ML NEB INH (18:22)
--- NOTE | 2020-01-06 18:39 | ED.ALLEREA ---
HPI - Allergic Reaction General Chief complaint: Allergic Reaction Stated complaint: Throat swelling Time Seen by Provider: 01/06/20 17:41 Source: patient Mode of arrival: Ambulatory Limitations: no limitations History of Present Illness HPI narrative: 69-year-old gentleman with anaphylaxis to the combination of lisinopril, verapamil and meloxicam, prior allergic reaction related to 1 or all of these did end up taking meloxicam this morning about 630 with his handful of other medications. He was seeing his primary care physician, Dr. Sauceda, in his clinic this afternoon with increasing lip swelling and complaining of severe headache. He has been suffering from cluster headaches for the last 2 weeks and has been getting very little sleep. Related Data Home Medications Medication Instructions Recorded Confirmed atorvastatin 20 mg tablet 20 mg PO DAILY 10/18/18 01/06/20 pantoprazole 40 mg tablet,delayed 40 mg PO DAILY 10/18/18 01/06/20 release Respironics Dreamstation CPAP #1 ea 06/13/19 12/09/19 aspirin-caffeine 500 mg-32.5 mg 1,500 tab PO DAILY tab 09/13/19 01/06/20 tablet duloxetine 20 mg capsule,delayed 20 mg PO DAILY cap 12/31/19 12/31/19 release sprinkle carvedilol 6.25 mg PO BID 01/06/20 01/06/20 meloxicam 15 mg PO DAILY 01/06/20 01/06/20 triamterene-hydrochlorothiazid 1 cap PO DAILY 01/06/20 01/06/20 Previous Rx's Medication Instructions Recorded dextroamphetamine-amphetamine ER 60 mg PO QAM #60 cap 11/19/19 30 mg 24hr capsule,extend release erenumab-aooe 140 mg/mL 140 mg SUBCUT QMONTH #1 ml 11/19/19 subcutaneous auto-injector verapamil 40 mg tablet 40 mg PO TID #90 tab 01/01/20 Allergies Allergy/AdvReac Type Severity Reaction Status Date / Time lisinopril Allergy Severe angiodema Verified 12/31/19 13:11 meloxicam Allergy Severe angiodema Verified 12/31/19 13:11 acetaminophen [From Vicodin] AdvReac Mild Vomitting Verified 12/31/19 13:11 hydrocodone [From Vicodin] AdvReac Mild Vomitting Verified 01/06/20 18:54 Review of Systems Review of Systems Narrative: Denies ? fever ? cough ? cold ? chills ? chest pain ? dyspnea ? orthopnea ? wheezing ? abdominal pain ? change to bowel or bladder habits ? nausea vomiting ? skin changes ? rashes Reports severe ongoing cluster headaches for the last 1 and half to 2 weeks. Patient History Medical History Cluster headaches (Acute) Headache, migraine (Acute) Hyperlipidemia (Acute) Hypertension (Acute) Sleep apnea, organic (Acute) Torticollis, acute (Acute) Surgical History History of bilateral inguinal hernia repair (Acute) History of fusion of cervical spine (Acute) History of laminectomy (Acute) Social History household members: significant other Smoking Status: Former smoker alcohol intake: former Smoking Status: Former smoker Exam Narrative Exam Narrative: General: Obese gentleman with moderately muffled voice but able to speak in full sentences complaining of headache HEENT: Pupils are equal and reactive. No nasal discharge. Minor upper lip edema moderate tongue swelling right greater than the left significant posterior pharyngeal and uvula edema Neck: Supple neck is short and quite full with anticipated difficult airway Chest: Completely clear to auscultation, no wheezing no lower airway complaints related to the upper airway breathing difficulties, no rhonchi Cardiac: Mild tachycardia, no murmurs Abdomen: Obese soft nontender Skin: No rashes, well perfused Neurologic: Alert, appropriate somewhat agitated and fussy in the bed but able to redirect Psych: Appropriate Initial Vital Signs Initial Vital Signs: Vital Signs Temperature 98.9 F 01/06/20 17:47 Pulse Rate 68 01/06/20 17:47 Respiratory Rate 19 01/06/20 17:47 Blood Pressure 137/91 H 01/06/20 17:47 Pulse Oximetry 100 01/06/20 17:47 Course Orders Ordered: Sodium Chloride (Normal Saline 0.9%) 1,000 mls @ 150 mls/hr IV CONT GEOVANNA Discontinued Medications Diphenhydramine HCl (Benadryl) 50 mg IV NOW ONE Stop: 01/06/20 17:42 Epinephrine (Epinephrine Racemic) 0.5 ml INH NOW ONE Stop: 01/06/20 18:20 Last Admin: 01/06/20 18:22 Dose: 0.5 ml Documented by: RITA Epinephrine HCl (Adrenalin) 0.4 mg IM NOW ONE Stop: 01/06/20 17:55 Last Admin: 01/06/20 18:02 Dose: 0.4 mg Documented by: RITA Famotidine (Pepcid) 20 mg in 50 mls @ 200 mls/hr IV NOW ONE Stop: 01/06/20 18:07 Last Infusion: 01/06/20 18:16 Dose: 0 mls/hr Documented by: Admin: 01/06/20 18:03 Dose: 200 mls/hr Documented by: RITA Methylprednisolone (Solu-Medrol 125 Mg Vial) 125 mg IV NOW ONE Stop: 01/06/20 17:42 Last Admin: 01/06/20 18:02 Dose: 125 mg Documented by: RITA Vital Signs Vital signs: Vital Signs - 8 hr 01/06/20 17:47 01/06/20 18:06 01/06/20 18:22 Temperature 98.9 F Pulse Rate 68 63 80 Respiratory Rate 19 16 24 Blood Pressure 137/91 H Blood Pressure [Right Arm] 163/96 H Pulse Oximetry 100 100 100 01/06/20 18:58 Temperature Pulse Rate Respiratory Rate Blood Pressure Blood Pressure [Right Arm] Pulse Oximetry 100 MDM - Allergic Reaction Medical Records Attestation: I reviewed the patient's medical records. Lab Data Labs: Point of Care Testing Rapid Strep A Negative MDM Narrative Medical decision making narrative: On initial presentation medics report that patient seemed like he was improving and route. No interventions were performed between hospital office and emergency department. Initially he is speaking in full sentences his voice is mildly muffled lips mildly edematous. Reports not feeling shortness of breath or any chest tightness. Reports severe headache consistent with his cluster headaches IV established Solu-Medrol Benadryl Pepcid all given. 100% oxygen in place for the headache On re-examination, his voice seems to be getting more muffled although he reports that he is feeling better. Voices significantly more muffled and posterior pharynx appears more full. Epi subcu given Call to anesthesia with concerns that he may end up needing to be intubated and he certainly would be a difficult intubation. Asked that they at least touch bases with the ER prior to leaving the hospital completely for safety sake. Reexamined, voice a bit last muffled. Obviously dramatic fatigued from all of the sleep loss due to headaches. Headache, after L on 100% O2, has completely resolved. Voice is still quite muffled however he is able to get up and ambulate to the bathroom void and ambulate back without any difficulties. Reexamined significantly less swelling to the posterior pharynx and throat. At this point continues to have severe headache any time the oxygen is discontinued and is dramatically fatigued. Given the impressive nature of his allergic reaction, epinephrine given prior intubation, obvious difficult intubation should his airway worsen and persistent headache I am going to suggest hospital admission for observation over the evening. Hospitalist paged Accepted for observation overnight by Mr. Driver Discharge Plan Departure Patient Disposition: Admitted as Observation Clinical Impression: Cluster headaches Qualifiers: Headache chronicity pattern: chronic headache Intractability: intractable Qualified Code(s): G44.021 - Chronic cluster headache, intractable Angioedema Qualifiers: Encounter type: initial encounter Qualified Code(s): T78.3XXA - Angioneurotic edema, initial encounter
[2020-01-06 20:24] LABS: Add Manual Diff / Slide Review NO; Basophils Absolute Auto 100 /uL (0-100); Basophils Percent Auto 0.9 % (0-2); Eosinophils Absolute Auto 700 /uL (0-450); Eosinophils Percent Auto 6.5 % (2-4); Hematocrit 43.2 % (41-53); Hemoglobin 14.9 g/dL (13.5-17.5); Lymphocytes Absolute Auto 2600 /uL (1100-4500); Lymphocytes Percent Auto 23.1 % (25-40); Mean Corpuscular HGB Conc 34.4 % (30-36); Mean Corpuscular Hemoglobin 29.9 PG (26-34); Mean Corpuscular Volume 86.8 fL (80-100); Monocytes Absolute Auto 1000 /uL (0-900); Monocytes Percent Auto 8.8 % (3-14); Neutrophils Absolute Auto 7000 /uL (1500-7000); Neutrophils Percent Auto 60.7 % (50-75); Platelet Count 304 X10^3/uL (150-400); Red Blood Cell Count 4.98 X10^6/uL (4.5-5.9); Red Cell Distribution Width 14.2 % (11.6-14.8); White Blood Cell Count 11.5 X10^3/uL (4.5-11.0)
[2020-01-06 20:29] LABS: Alanine Aminotransferase 46 IU/L (<50); Albumin 4.6 g/dL (3.5-5.0); Albumin Globulin Ratio 1.4 (1.0-2.8); Alkaline Phosphatase 63 U/L (38-126); Aspartate Aminotransferase 49 IU/L (17-59); BUN Creatinine Ratio 18.9 (6-22); Bilirubin Total 0.5 mg/dL (0.2-1.3); Blood Urea Nitrogen 23 mg/dL (9-20); Calcium 9.5 mg/dL (8.4-10.2); Carbon Dioxide 29 mmol/L (22-32); Chloride 100 mmol/L (98-107); Estimated Glomerular Filt Rate 59.1 mL/min (>60); Globulin 3.4 g/dL (1.7-4.1); Glucose 109 mg/dL (80-110); HEMOLYSIS 21 (0-50); Magnesium 2.1 mg/dL (1.6-2.3); Potassium 3.5 mmol/L (3.4-5.1); Sodium 137 mmol/L (137-145)
--- NOTE | 2020-01-06 20:29 | PM.HP.1 ---
History of Present Illness History of Present Illness Date Patient Seen: 01/06/20 Time Patient Seen: 20:06 Chief complaint: Throat swelling Narrative: Mr. 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 Sauceda after being seen office lip swelling headaches. The patient reports having cluster headaches for 2 weeks now reports very sleep over that time period. At 6:30 a.m. this morning the patient took his routine medications. On his previous angioedema event he was taken off lisinopril as a possible etiology and is currently taking triamterene hydrochlorothiazide and carvedilol for blood pressure control. The patient presently takes meloxicam 15 mg daily for chronic back pain. He takes verapamil and aspirin-caffeine and Amovig for headache management. The called and spoke with the ER providers who indicated the patient has been snorting his Adderall and has been using marijuana. The time of interview the patient states he is feeling better however is very restless fidgety with visual disturbance and muffled voice, he complains of pain right side of his stone. He denies complaints fevers or chills, chest pain or palpitations. Over the last 2 weeks he has had a dry cough and runny nose but denies symptoms presently. He denies complaints of abdominal pain, nausea or vomiting. His stools have been harder and less frequent with his last bowel movement today. He has difficulty walking related to left footdrop following back surgery and typically ambulates with a cane. Upon arrival the patient is afebrile with temperature of 98.9?, heart rate of 63, blood pressure 163/96, respirations 16, 100% on supplemental oxygen. No imaging or lab studies were completed in the emergency department. The patient was treated with methylprednisolone 125 mg, Benadryl 50 mg and Pepcid 20 mg at which the patient had a transient improvement and then began to decompensate again and received epinephrine 0.4 mg subcu and racemic epinephrine nebulizer. The plan was to treat the patient and discharge him to home however with relapse the patient will be admitted to ICU under the medicine service for acute angioedema which is previously required intubation. Patient History Medical History (Updated 01/06/20 @ 21:15 by JAZMIN Cote) Angioedema (Inactive) Cluster headaches (Acute) Footdrop (Acute) Headache, migraine (Acute) Hepatitis C (Acute) History of alcohol abuse (Acute) History of narcotic addiction (Acute) Hyperlipidemia (Acute) Hypertension (Acute) Sleep apnea, organic (Acute) Torticollis, acute (Acute) Surgical History (Updated 01/06/20 @ 21:15 by JAZMIN Cote) History of bilateral inguinal hernia repair (Acute) History of fusion of cervical spine (Acute) History of laminectomy (Acute) History of nasal septoplasty (Acute) Family & Social History Family History (Updated 01/06/20 @ 21:17 by JAZMIN Cote) Father Hyperlipidemia Hypertension Cardiac disease Depression Mother Cardiac disease Depression Social History: household members significant other Safety & Behavioral: Feels Safe in Current Yes Environment Tobacco & Substance use: Smoking Status Former smoker alcohol intake former Meds Home Medications and Allergies Home Medications Medication Instructions Recorded Confirmed Type atorvastatin 20 mg tablet 20 mg PO DAILY 10/18/18 01/06/20 History pantoprazole 40 mg tablet,delayed 40 mg PO DAILY 10/18/18 01/06/20 History release Respironics Dreamstation CPAP #1 ea 06/13/19 12/09/19 History aspirin-caffeine 500 mg-32.5 mg 1,500 tab PO DAILY tab 09/13/19 01/06/20 History tablet dextroamphetamine-amphetamine ER 60 mg PO QAM #60 cap 11/19/19 01/06/20 Rx 30 mg 24hr capsule,extend release erenumab-aooe 140 mg/mL 140 mg SUBCUT QMONTH #1 ml 11/19/19 12/09/19 Rx subcutaneous auto-injector duloxetine 20 mg capsule,delayed 20 mg PO DAILY cap 12/31/19 12/31/19 History release sprinkle carvedilol 6.25 mg PO BID 01/06/20 01/06/20 History triamterene-hydrochlorothiazid 1 cap PO DAILY 01/06/20 01/06/20 History Allergies Allergy/AdvReac Type Severity Reaction Status Date / Time lisinopril Allergy Severe angiodema Verified 12/31/19 13:11 meloxicam Allergy Severe angiodema Verified 12/31/19 13:11 acetaminophen [From Vicodin] AdvReac Mild Vomitting Verified 12/31/19 13:11 hydrocodone [From Vicodin] AdvReac Mild Vomitting Verified 01/06/20 18:54 Review of Systems Review of Systems ROS: Yes All systems reviewed with the patient and are negative except as otherwise documented Exam Vital Signs (past 8 hours): - 01/06/20 17:47 01/06/20 18:06 01/06/20 18:22 Temperature 98.9 F Pulse Rate 68 63 80 Respiratory Rate 19 16 24 Blood Pressure 137/91 H Blood Pressure [Right Arm] 163/96 H Pulse Oximetry 100 100 100 01/06/20 18:58 01/06/20 19:31 Temperature Pulse Rate 82 Respiratory Rate 17 Blood Pressure Blood Pressure [Right Arm] 147/92 H Pulse Oximetry 100 100 Oxygen Delivery Method Room Air Oxygen Flow Rate 15 Narrative Exam Narrative: GENERAL APPEARANCE: well developed, obese male with a BMI of 37.1 in no acute distress. HEENT: Normocephalic, PERRLA, conjunctiva clear, EOMs intact without nystagmus, no sinus tenderness to percussion, no rhinorrhea, tongue is swollen right greater than left, poor visualization of posterior pharynx, muffled voice, no stridor NECK/THYROID: neck supple, no muscle spasms, no JVD, no carotid bruit, no thyromegaly, trachea midline. LYMPH NODES: no cervical or supraclavicular lymphadenopathy. SKIN: [place], warm and dry, no visible lesions, rashes. HEART: regular rate and rhythm, S1-S2, no murmur appreciated, no rubs or gallops, brisk capillary refill, no edema LUNGS: clear to auscultation bilaterally, no coarseness crackles or wheezing, no cough present CHEST: Symmetrical movement, no accessory muscle use, good tidal volume. ABDOMEN: Soft, round/obese, firm,, no abdominal tenderness, no guarding or peritoneal signs, no organomegaly-exam limited by body habitus, no flank or suprapubic tenderness, active bowel tones. BACK: Normal curvature, nontender to palpation, no CVA tenderness on percussion EXTREMITIES: moves all extremities, strength is 5/5 and symmetrical, intact dorsi/planar flexion b/l feet, no deformities or joint effusions. NEUROLOGIC: AAO x 3, cranial nerves II-XII grossly intact, decreased sensation left foot, hearing grossly normal to speech. PSYCH: Fidgety and restless, impulsive, difficult time focusing. Objective Labs Result Diagrams: 01/06/20 17:45 01/06/20 17:45 Labs: Laboratory Results - last 24 hr 01/06/20 17:45 WBC 11.5 H RBC 4.98 Hgb 14.9 Hct 43.2 MCV 86.8 MCH 29.9 MCHC 34.4 RDW 14.2 Plt Count 304 Neut % (Auto) 60.7 Lymph % (Auto) 23.1 L [place] % (Auto) 8.8 Eos % (Auto) 6.5 H Baso % (Auto) 0.9 Neut # (Auto) 7000 Lymph # (Auto) 2600 [place] # (Auto) 1000 H Eos # (Auto) 700 H Baso # (Auto) 100 Assessment & Plan Assessment & Plan narrative: This is a 61-year-old male patient who presents to the ER with angioedema sent by his primary care provider noted swelling of the lips in the setting of prior angioedema requiring intubation. Patient was aggressively treated in the ER with improvement in status and the patient is admitted for monitoring related to concern for rebound. Will obtain stat lab work, EKG and chest x-ray. 1. Acute angioedema believed to be allergy mediated, present on admission, active -Concern related to prior angioedema and subsequent intubation precipitated by lisinopril, meloxicam and or verapamil. Today's presentation is similar to prior event. -Lisinopril has been discontinued in favor of Coreg and triamterene; Meloxicam has been discontinued however patient took a dose of meloxicam this morning at 6:30 a.m.; Verapamil had been discontinued but restarted at 40 mg twice daily on 12/31/2019; It is still unclear precipitating medication. -Patient with a white count of 11.5 with an increase in eosinophils to 6.5. -Patient received methylprednisolone 125 mg in the ER will continue methylprednisolone 60 mg every 12 hours. -Patient received racemic epinephrine in the ER with improvement will continue racemic epinephrine 0.5 mg every 4 hours as needed. -Patient received famotidine in the ER will continue famotidine 20 mg every 12 hours. -The patient received Benadryl 50 mg IV in the emergency department with concern related to possible anticholinergic syndrome with and hydro cysts, visual changes, and agitation. Continue Benadryl 50 mg IV every 6 hours due to the patient's severity of reaction and monitor for side effects. 2. Cluster headaches, chronic, present on admission, active. -The patient has long history of cluster headaches with spasmodic pain behind the right eye. -Amovig had been prescribed as a monthly dose, patient has chosen not to pursue this medication. -Verapamil had been discontinued related to concern as a trigger medication for angioedema. Medication was restarted on 12/31/2019 at 40 mg twice daily and may be participatory in today's event and is therefore discontinued. Ordered 12 lead EKG for QT interval. -May continue aspirin caffeine 1500 mg tab daily. -Avoid all opiates. Patient has previously been addicted to narcotic medications. 3. Medication abuse, acute, present on admission, active. -Patient has been prescribed dexamphentermine-amphetamine 30 mg extended release 2 tabs daily in the morning -The patient's reports the patient has been crushing and snorting his dexamphentermine-amphetamine. The patient is also been using marijuana. -Concerns raised over toxic effects which may include anaphylactic response as well as cardiac events. -Ordered 12 lead EKG, chest x-ray, cardiac panel. 4. Essential hypertension, chronic, present on admission, active. -Patient's blood pressure on arrival is 163/96 improved to 140/80 on admission to ICU. -Will continue derm entering hydrochlorothiazide 37.5/25 mg daily 5. Hyperlipidemia, chronic, stable -Will continue patient's home medication of atorvastatin 20 mg daily. 6. Gastroesophageal reflux disease, chronic, stable -Patient routinely takes pantoprazole 40 mg daily. -Patient is receiving famotidine 20 mg IV twice daily for his angioedema and treat GERD. 7. Obstructive sleep apnea, chronic, stable. -At this point the patient is potential airway compromised will keep the patient sitting upright head of bed at least 30?. -Will hold off on CPAP. VTE prophylaxis: SCDs, enoxaparin IV fluid: Normal saline 75 cc/hour. Diet: NPO. Code status: Patient is FULL CODE and designates his as surrogate decision maker. The patient is admitted to the intensive care unit related to continuing angioedema and history of requiring previous intubation for same. At this time the patient is admitted observation status with expected length of stay to be less than 2 midnights. CRITICAL CARE TIME: 60 minutes. Scores GCS Kevin coma scale eye opening: Spontaneous [place] coma scale verbal response: Orientated Kevin coma scale motor response: Obey commands [place] coma scale total score: 15
--- NOTE | 2020-01-06 20:45 | DI.RAD.S_ITS ---
PROCEDURE: XR CHEST 1V INDICATIONS: Angioedema, anaphylaxis TECHNIQUE: One view of the chest was acquired. COMPARISON: [facility], CR, XR CHEST 1V, 10/21/2019, 16:07. [facility], CR, XR CHEST 2V, 05/27/2019, 10:36. FINDINGS: Surgical changes and devices: None. Lungs and pleura: Lungs are abnormal with a mild pulmonary edema pattern. No pleural effusions or pneumothorax. Mediastinum: Mediastinal contours appear normal. Heart size is normal. Bones and chest wall: No suspicious bony lesions. Overlying soft tissues appear unremarkable. IMPRESSION: Mild pulmonary edema pattern without cardiomegaly. Dictated by: Villa Hernandez M.D. on 01/06/2020 at 21:08 Approved by: Villa Hernandez M.D. on 01/06/2020 at 21:08
[2020-01-06 21:00] LABS: Creatine Kinase 332 U/L (55-170)
[2020-01-06] MEDS: SODIUM CHLORIDE 0.9% 1,000 ML 75 ML IV (21:06)
[2020-01-06 21:13] LABS: Troponin I < 0.012 ng/mL (0.01-0.034)
[2020-01-06 21:16] LABS: CKMB % Relative Index 1.9 % (1.5-5.0); Creatine Kinase MB 6.33 ng/mL (<2.37)
[2020-01-06 22:49] LABS: UR Morphine/Opiate cutoff 300 Negative (Negative); Ur Creatinine Normal (Normal); Ur Specific Gravity Normal (Normal); Urine Amphetamines Positive (Negative); Urine Barbiturates Negative (Negative); Urine Benzodiazepines Negative (Negative); Urine Cocaine Negative (Negative); Urine MDMA Negative (Negative); Urine Methadone Negative (Negative); Urine Methamphetamines Negative (Negative); Urine Oxycodone Negative (Negative); Urine Phencyclidine Negative (Negative); Urine Tetrahydrocannabinol Positive (Negative); Urine Tricyclic Antidepressant Negative (Negative); Urine pH Normal (Normal)
[2020-01-06 23:42] LABS: Adenovirus Not Detected (Not Detect); Bordetella pertussis Not Detected (Not Detect); Chlamydophila pneumoniae Not Detected (Not Detect); Coronavirus 229E Not Detected (Not Detect); Coronavirus HKU1 Not Detected (Not Detect); Coronavirus NL 63 Not Detected (Not Detect); Coronavirus OC43 Not Detected (Not Detect); Human Metapneumovirus Not Detected (Not Detect); Human Rhinovirus/Enterovirus Not Detected (Not Detect); Influenza A Not Detected (Not Detect); Influenza B Not Detected (Not Detect); Mycoplasma pneumoniae Not Detected (Not Detect); Parainfluenza Virus 1 Not Detected (Not Detect); Parainfluenza Virus 2 Not Detected (Not Detect); Parainfluenza Virus 3 Not Detected (Not Detect); Parainfluenza Virus 4 Not Detected (Not Detect); Respiratory Syncytial Virus Not Detected (Not Detect)
[2020-01-07] VITALS (11 sets, daily range): BP systolic 136–194; BP diastolic 67–84; PULSE 69–80; RESP 12–25; TEMP 36.2–36.7; O2SAT 94–100
--- NOTE | 2020-01-07 00:03 | PC.NURSE ---
Addendum entered by Joss Baker R.N. 01/07/20 04:23: 0420: Back of throat visible. Tongue looks less edematous. Pt sleeping intermittently. Addendum entered by Joss Baker R.N. 01/07/20 03:16: 0220: Pt states he is having nausea. JAZMIN Marquez notified, and pt medicated with Zofran 4mg IV as ordered. Assisted pt to reposition and raise HOB. Back of throat visible and no increase noted in edema to tongue. Addendum entered by Joss Baker R.N. 01/07/20 01:05: 0100: Sleeping intermittently. Back of throat visualized. Tongue remains edematous. Original Note: Survey Supervisor Note: 2350: Awake, resting in bed. Respirations unlabored. O2 sat 99% on O2 2L/NC. IV in place in lt AC, with NS infusing at 75cc/hr. Vital signs stable. EKG in progress by RT.
[2020-01-07] MEDS: FAMOTIDINE 20 MG/50 ML PIGGYBACK 200 MG IV (00:31)
[2020-01-07] MEDS: ONDANSETRON 4 MG/2 ML INJ IV (02:20)
[2020-01-07] MEDS: methylPREDNISolone 125 MG/2 ML VIAL 60 MG IV (04:48)
--- NOTE | 2020-01-07 10:56 | PM.DS.1 ---
History of Present Illness History of Present Illness Date Patient Seen: 01/07/20 Chief complaint: Throat swelling Narrative: Mr. 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 Sauceda after being seen office lip swelling headaches. The patient reports having cluster headaches for 2 weeks now reports very sleep over that time period. At 6:30 a.m. this morning the patient took his routine medications. On his previous angioedema event he was taken off lisinopril as a possible etiology and is currently taking triamterene hydrochlorothiazide and carvedilol for blood pressure control. The patient presently takes meloxicam 15 mg daily for chronic back pain. He takes verapamil and aspirin-caffeine and Amovig for headache management. The called and spoke with the ER providers who indicated the patient has been snorting his Adderall and has been using marijuana. The time of interview the patient states he is feeling better however is very restless fidgety with visual disturbance and muffled voice, he complains of pain right side of his stone. He denies complaints fevers or chills, chest pain or palpitations. Over the last 2 weeks he has had a dry cough and runny nose but denies symptoms presently. He denies complaints of abdominal pain, nausea or vomiting. His stools have been harder and less frequent with his last bowel movement today. He has difficulty walking related to left footdrop following back surgery and typically ambulates with a cane. Upon arrival the patient is afebrile with temperature of 98.9?, heart rate of 63, blood pressure 163/96, respirations 16, 100% on supplemental oxygen. No imaging or lab studies were completed in the emergency department. The patient was treated with methylprednisolone 125 mg, Benadryl 50 mg and Pepcid 20 mg at which the patient had a transient improvement and then began to decompensate again and received epinephrine 0.4 mg subcu and racemic epinephrine nebulizer. The plan was to treat the patient and discharge him to home however with relapse the patient will be admitted to ICU under the medicine service for acute angioedema which is previously required intubation. Discharge Providers Provider Date of admission: 01/06/20 19:51 Discharge Date: 01/07/20 Primary care physician: Anoop Sauceda MD Consults: 01/06/20 20:17 Consult to Respiratory Therapy Evaluate & Treat Comment: Anaphylaxis, angioedema Physician Instructions: Evaluate and treat 01/07/20 01:53 Consult to Dietitian, Adult Routine Comment: Reason For Exam: nausea Discharge provider: Kalpana Hagen MD Summary Hospital Course Discharge Diagnosis: 1. Recurrent angioedema 2. Hyperlipidemia 3. Hypertension 4. ADHD 5. GERD 6. Polysubstance abuse Hospital Course: The patient is a 69-year-old male who was admitted to the hospital for abrupt onset angioedema. Was treated in the emergency room with Pepcid, epinephrine, Solu-Medrol, and Benadryl. The patient initially improved but then had recurrent swelling. He was then admitted to the hospital for treatment and evaluation. In the hospital patient remains on steroids, H1 and H2 blockers. He has had improvement of his swelling today. The patient is hungry and is requesting a 2nd breakfast. He is able to swallow. There is no obvious swelling or muffling of his voice. Patient is deemed appropriate for discharge and arrangements are made for him to be discharged home. Exam Vital Signs (past 8 hours): - 01/07/20 03:00 01/07/20 04:00 01/07/20 04:24 Temperature 98.0 F Pulse Rate 70 74 74 Respiratory Rate 18 16 Blood Pressure 136/76 194/84 H 148/84 H Pulse Oximetry 99 94 01/07/20 05:00 01/07/20 06:00 01/07/20 07:00 Temperature Pulse Rate 71 Respiratory Rate Blood Pressure 148/84 H 149/75 H 149/75 H Pulse Oximetry 01/07/20 08:00 01/07/20 09:00 Temperature 97.1 F L Pulse Rate 76 79 Respiratory Rate 18 12 Blood Pressure 139/67 Pulse Oximetry 94 94 Oxygen Delivery Method Nasal Cannula Oxygen Flow Rate 0 Narrative Exam Narrative: Very talkative hyper animated male in no obvious distress HEENT: Normocephalic atraumatic, oropharynx is clear, oval is midline, no swelling of the oral cavity Lungs clear to auscultation, no rhonchi crackles or wheezing Cardiac exam: Regular rate and rhythm normal S1-S2 Abdomen: Soft nontender nondistended Objective Labs Result Diagrams: 01/06/20 17:45 01/06/20 17:45 Labs: Laboratory Results - last 24 hr 01/06/20 01/06/20 01/06/20 17:45 17:45 17:45 WBC 11.5 H RBC 4.98 Hgb 14.9 Hct 43.2 MCV 86.8 MCH 29.9 MCHC 34.4 RDW 14.2 Plt Count 304 Neut % (Auto) 60.7 Lymph % (Auto) 23.1 L Whiteside % (Auto) 8.8 Eos % (Auto) 6.5 H Baso % (Auto) 0.9 Neut # (Auto) 7000 Lymph # (Auto) 2600 Whiteside # (Auto) 1000 H Eos # (Auto) 700 H Baso # (Auto) 100 Sodium 137 Potassium 3.5 Chloride 100 Carbon Dioxide 29 BUN 23 H Creatinine 1.22 Estimated GFR 59.1 L BUN/Creatinine Ratio 18.9 Glucose 109 Calcium 9.5 Magnesium 2.1 Total Bilirubin 0.5 AST 49 ALT 46 Alkaline Phosphatase 63 Total Creatine Kinase 332 H CK-MB (CK-2) 6.33 H CK-MB (CK-2) Rel Index 1.9 Troponin I < 0.012 Total Protein 8.0 Albumin 4.6 Globulin 3.4 Albumin/Globulin Ratio 1.4 U Opiates 300ng/mL cut Ur Oxycodone Screen Urine Methadone Screen Ur Barbiturates Screen U Tricyclic Antidepress Ur Phencyclidine Scrn Ur Amphetamines Screen U Methamphetamines Scrn Ur MDMA Scrn (Ecstasy) U Benzodiazepines Scrn Urine Cocaine Screen U Marijuana (THC) Screen Chlamy pneumoniae PCR Adenovirus (PCR) B.parapertussis DNA PCR Coronavirus OC43 (PCR) Coronavirus HKU1 (PCR) Coronavirus 229E (PCR) Coronavirus NL63 (PCR) Human Metapneumovir PCR Influenza Type A (PCR) Influenza Type B (PCR) M. pneumoniae (PCR) Parainfluenza 1 (PCR) Parainfluenza 2 (PCR) Parainfluenza 3 (PCR) Parainfluenza 4 (PCR) RSV (PCR) Entero/Rhino (PCR) 01/06/20 01/06/20 22:25 22:30 WBC RBC Hgb Hct MCV MCH MCHC RDW Plt Count Neut % (Auto) Lymph % (Auto) Whiteside % (Auto) Eos % (Auto) Baso % (Auto) Neut # (Auto) Lymph # (Auto) Whiteside # (Auto) Eos # (Auto) Baso # (Auto) Sodium Potassium Chloride Carbon Dioxide BUN Creatinine Estimated GFR BUN/Creatinine Ratio Glucose Calcium Magnesium Total Bilirubin AST ALT Alkaline Phosphatase Total Creatine Kinase CK-MB (CK-2) CK-MB (CK-2) Rel Index Troponin I Total Protein Albumin Globulin Albumin/Globulin Ratio U Opiates 300ng/mL cut Negative Ur Oxycodone Screen Negative Urine Methadone Screen Negative Ur Barbiturates Screen Negative U Tricyclic Antidepress Negative Ur Phencyclidine Scrn Negative Ur Amphetamines Screen Positive H U Methamphetamines Scrn Negative Ur MDMA Scrn (Ecstasy) Negative U Benzodiazepines Scrn Negative Urine Cocaine Screen Negative U Marijuana (THC) Screen Positive H Chlamy pneumoniae PCR Not detected Adenovirus (PCR) Not detected B.parapertussis DNA PCR Not detected Coronavirus OC43 (PCR) Not detected Coronavirus HKU1 (PCR) Not detected Coronavirus 229E (PCR) Not detected Coronavirus NL63 (PCR) Not detected Human Metapneumovir PCR Not detected Influenza Type A (PCR) Not detected Influenza Type B (PCR) Not detected M. pneumoniae (PCR) Not detected Parainfluenza 1 (PCR) Not detected Parainfluenza 2 (PCR) Not detected Parainfluenza 3 (PCR) Not detected Parainfluenza 4 (PCR) Not detected RSV (PCR) Not detected Entero/Rhino (PCR) Not detected Discharge Plan Discharge Plan Patient Disposition: Home Discharge orders & Medications Prescriptions: New prednisone 20 mg tablet 20 mg PO DAILY 5 Days RF: 0 Continued atorvastatin 20 mg tablet 20 mg PO DAILY RF: 0 pantoprazole 40 mg tablet,delayed release (DR/EC) 40 mg PO DAILY RF: 0 Edd Back and Body 500-32.5 mg tablet 1,500 tab PO DAILY RF: 0 dextroamphetamine-amphetamine [Adderall XR] 30 mg capsule,extended release 24hr 60 mg PO QAM Qty: 60 RF: 0 carvedilol 6.25 mg tablet 6.25 mg PO BID RF: 0 triamterene-hydrochlorothiazid 37.5-25 mg capsule 1 cap PO DAILY RF: 0 duloxetine 20 mg capsule, delayed rel sprinkle 20 mg PO DAILY RF: 0 No Action (DME) Respironics Dreamstation CPAP Qty: 1 RF: 0 Follow up/Referrals: Anoop Sauceda MD [Primary Care Provider] - Diet/Activity/Treatments Diet: Low-sodium and Low-cholesterol Activity: as tolerated Discharge Data Primary Care Provider: Anoop Sauceda V Attending Provider: Jose Driver Admit Date/Time: 01/06/20 19:51 Quality VTE Deep Vein Thrombosis/Pulmonary Embolism Present on Admission: No
[2020-01-07] MEDS: carvediloL 6.25 MG TABLET PO (11:15)
[2020-01-07] MEDS: TRIAMTERENE/HCTZ 37.5/25 TABLET 1 CAP PO (11:15)
--- NOTE | 2020-01-07 13:02 | PC.NURSE ---
Addendum entered by Tiffany Bruce R.N. 01/07/20 14:24: pt with all questions answered by paola villaseñor and this rn- discharged from hosptial at this time- pt declined wheelchair escort but did ambulate with and hospital employee to elevator Original Note: pt with no evidence of swollen tongue this am- cleared by md for diet and ordered general with thin liquids- he tolerates this fine with no evidence of swallowing difficulties- pt quite impulsive with some erratic behavior/demeanor noted- removed iv access and prepared for discharge on prednisone taper- awaiting to tow picker pt at his time- pt wishing to speak with MD and /or PAOLA villaseñor about the state of his case
--- NOTE | 2020-01-07 13:23 | CM.DANOTE ---
DCP/Assessment: Reviewed chart. Patient is a 69yr old male admitted to [facility] with throat swelling. Primary payor is 1)Medicare 2)[employer]. PCP is . Received verbal referral from nursing staff and provider re: consult for medication compliance. Per notes patient crushing up his adderall and snorting it. 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 Patient alert and oriented sitting in recliner at time of visit. Patient reports long h/o addiction. Patient has not had drink for approximately 10yrs. Patient also indicates that he used to be on Suboxene for opiate addiction. Patient no longer takes. Currently, patient admits to snorting both addrall and aspirin. Patient reports that the adderall makes him unable to sleep at night. Therefore, he snorts it in hopes that it will get out of his system faster so he can sleep? Patient also admits to having addictive behavior which results in him snorting substances. Patient denies using any other legal or illegal substances. Patient for 38yrs and reports that he does not get along well with his spouse. He attributes this to him being unhappy as well. Patient denies suicidal or homicidal ideation. Patient has local counselor in [facility]. Patient reports that he only goes every 3 months to check in. Encouraged patient to call for appointment this month. In addition, recommended he address some of his mental health issues which he identified. Patient complains of having chronic headaches, ADHD, PTSD, and depression. Long discussion with patient about obtaining psychiatrist to assist with medication. Provided patient with resources to check availability. Patient aware and agreeable to the above. P: Home today. Resources provided. Patient uses cane at baseline for ambulation. Spouse will be picking him up. RN updated. JV Valverde Discharge Planning/Care Management CM Discharge Assessment Start: 01/07/20 13:20 Freq: Status: Active Protocol: Document 01/07/20 13:20 KJS (Rec: 01/07/20 13:23 KJS [id number]) Discharge Planning Assessment Assigned Custom Harvester JV Valverde Contact Information Kanchan Peck (spouse) cell# [phone] Advance Directives? No History Provided By Patient,Medical Record Prior Living Arrangements House Household Members spouse Type of transporation used prior to Drives own vehicle admit Independent with ADL's Yes Is patient alert and oriented? Yes Caregiver for Another No DME Already Rented / Owned Cane Barriers to Discharge No Discharge Plan Home Transportation Arrangement Family to provide transport. Referrals Initiated Other Additional Comment Provided patient with community senior resource booklet and [facility] health. Whiteboard Updated in Patient Room with Yes name and ext. # of Custom Harvester Review Status In Process Next Review Type Continued Stay Review
== END 2020-01-07 13:50 | disposition home or self-care (01) ==
LOC: ED 19:26 → AC 19:52 → ICU 01-07 06:44 → AC 01-07 12:49
PROVIDERS: Admitting Provider Nurse Practitioner Adult Health; Emergency Provider Emergency Medicine; PCP Internal Medicine; Visit Provider Nurse Practitioner Adult Health
DX: T78.3XXA Angioneurotic edema, initial encounter (principal); G44.021 Chronic cluster headache, intractable; G47.33 Obstructive sleep apnea (adult) (pediatric); I10 Essential (primary) hypertension; E78.5 Hyperlipidemia, unspecified; F90.9 Attention-deficit hyperactivity disorder, unspecified type; K21.9 Gastro-esophageal reflux disease without esophagitis
CPT/HCPCS: 36415; 71045; 80053; 80305; 82550; 82553; 83735; 84484; 85025; 87633; 87880; 93005; 93010; 94640; 94770; 96361; 96365; 96372; 96375; 96376; 99284; 99285; 99291; 99292; G0378; J0171; J1200; J2405; J2930

== ENCOUNTER → 2020-09-21 19:55 | Outpatient (ROUT) | payer MEDICARE, OTHER, SELFPAY ==
[2019-10-23 07:28] VITALS: PULSE 60; RESP 23; O2SAT 98
[2020-01-06 20:30] VITALS: BMI 37.0
[2020-09-21 20:19] LABS: Add Manual Diff / Slide Review NO; Basophils Absolute Auto 100 /uL (0-100); Basophils Percent Auto 0.9 % (0-2); Eosinophils Absolute Auto 700 /uL (0-450); Hematocrit 44.9 % (41-53); Hemoglobin 15.5 g/dL (13.5-17.5); Lymphocytes Absolute Auto 2200 /uL (1100-4500); Mean Corpuscular HGB Conc 34.4 % (30-36); Mean Corpuscular Hemoglobin 30.2 PG (26-34); Mean Corpuscular Volume 87.7 fL (80-100); Monocytes Absolute Auto 900 /uL (0-900); Monocytes Percent Auto 7.4 % (3-14); Neutrophils Absolute Auto 7800 /uL (1500-7000); Neutrophils Percent Auto 66.7 % (50-75); Platelet Count 295 X10^3/uL (150-400); Red Blood Cell Count 5.12 X10^6/uL (4.5-5.9); Red Cell Distribution Width 14.2 % (11.6-14.8); White Blood Cell Count 11.6 X10^3/uL (4.5-11.0)
[2020-09-21 20:22] LABS: HEMOLYSIS < 15 (0-50); Iron 91 ug/dL (49-181)
[2020-09-21 20:24] LABS: Aspartate Aminotransferase 27 IU/L (17-59); BUN Creatinine Ratio 22.3 (6-22); Blood Urea Nitrogen 23 mg/dL (9-20); Calcium 9.5 mg/dL (8.4-10.2); Carbon Dioxide 24 mmol/L (22-32); Chloride 103 mmol/L (98-107); Cholesterol 158 mg/dL (140-199); Estimated Glomerular Filt Rate > 60.0 mL/min (>60); Glucose 104 mg/dL (80-110); HDL Cholesterol 41 mg/dL (40-60); HEMOLYSIS < 15 (0-50); LDL Cholesterol Calculated 87 mg/dL (<100); Potassium 4.5 mmol/L (3.4-5.1); Sodium 137 mmol/L (137-145); Triglycerides 149 mg/dL (35-150)
[2020-09-21 20:34] LABS: Percent Iron Saturation 23 % (20-50); Total Iron Binding Capacity 391 ug/dL (261-462); Transferrin 294 mg/dL (206-381)
[2020-09-21 20:54] LABS: Prostate Specific Antigen 0.681 ng/mL (0.10-4.00)
[2020-09-21 20:58] LABS: Ferritin 10 ng/mL (18-464)
== END ==
PROVIDERS: PCP Internal Medicine; Visit Provider Internal Medicine
DX: E61.1 Iron deficiency (principal); E78.2 Mixed hyperlipidemia; I10 Essential (primary) hypertension; N40.0 Benign prostatic hyperplasia without lower urinary tract symptoms
CPT/HCPCS: 80048; 80061; 82728; 83540; 83550; 84153; 84450; 85025

== ENCOUNTER 2020-09-25 18:01 | Inpatient (IN) | payer MEDICARE, OTHER, SELFPAY ==
[2019-10-23 07:28] VITALS: PULSE 60; RESP 23; O2SAT 98
[2020-01-06 20:30] VITALS: BMI 37.0
[2020-09-25] VITALS (10 sets, daily range): BP systolic 106–226; BP diastolic 66–137; PULSE 69–95; RESP 16–18; TEMP 36.1–37; O2SAT 97–99; BMI 36.4
--- NOTE | 2020-09-25 | DI.RAD.S_ITS ---
PROCEDURE: XR CHEST 1V INDICATIONS: ET TUBE PLACEMENT AND LINE PLACEMENT TECHNIQUE: One view of the chest was acquired. COMPARISON: [facility], CR, XR CHEST 1V, 01/06/2020, 20:49. [facility], CR, XR CHEST 1V, 10/21/2019, 16:07. FINDINGS: Surgical changes and devices: Endotracheal tube in the midtrachea. Enteric tube coursing into the stomach. Tip is seen in terminating in the stomach. Defibrillator pads overlying the chest. Lungs and pleura: Diffuse patchy airspace opacity bilaterally. Lung volumes are reduced. No pneumothorax. No effusion is appreciated. Mediastinum: Mediastinal contours appear unchanged. Heart size is partially obscured. Bones and chest wall: No suspicious bony lesions. Overlying soft tissues appear unremarkable. IMPRESSION: Endotracheal tube terminates in the mid trachea in satisfactory position. Enteric tube is in the expected position. Diffuse patchy airspace opacity bilaterally. This is concerning for multifocal pneumonia or atypical pneumonia. Dictated by: Wil Stanley M.D. on 09/25/2020 at 19:29 Approved by: Wil Stanley M.D. on 09/25/2020 at 19:31
--- NOTE | 2020-09-25 18:05 | ED_ITS ---
HPI - Allergic Reaction General Chief complaint: Allergic Reaction Stated complaint: allergic reaction Time Seen by Provider: 09/25/20 18:02 Source: patient and EMS Mode of arrival: EMS Limitations: no limitations History of Present Illness HPI narrative: 70-year-old male former smoker with history of hypertension and multiple episodes of angioedema presents by EMS with a chief complaint of rapid onset of tongue or posterior pharynx swelling over the past 30 minutes or so. On arrival he is now having voice change and having difficulty controlling secretions. His prior to episodes were thought to be related to lisinopril and meloxicam. He was given epinephrine and steroids by EMS. He denies any new medications or other dietary change. He has had no fever chills nor nausea or vomiting. He denies any chest pain and is having shortness of breath. MD complaint: allergic reaction Onset (ago): minute(s) Exposure: unknown Symptoms: facial swelling, lip swelling, difficulty swallowing, difficulty breathing and tongue swelling Severity: severe Treatment prior to arrival: epinephrine and steroids Previous Allergic Reaction History: prior ED visit(s), angioedema and intubation Related Data Home Medications Medication Instructions Recorded Confirmed atorvastatin 20 mg tablet 20 mg PO DAILY 10/18/18 09/04/20 pantoprazole 40 mg tablet,delayed 40 mg PO DAILY 10/18/18 09/04/20 release Respironics Dreamstation CPAP #1 ea 06/13/19 09/04/20 carvedilol 6.25 mg PO BID 01/06/20 09/04/20 tramadol 50 mg tablet 50 - 100 mg PO Q6H PRN tab 03/12/20 09/04/20 Previous Rx's Medication Instructions Recorded bupropion HCl 300 mg 24 hr tablet, 300 mg PO QAM #90 tab 09/04/20 extended release dextroamphetamine-amphetamine ER 60 mg PO QAM #60 cap 09/04/20 30 mg 24hr capsule,extend release dextroamphetamine-amphetamine ER 60 mg PO QAM #60 cap 09/04/20 30 mg 24hr capsule,extend release Allergies Allergy/AdvReac Type Severity Reaction Status Date / Time lisinopril Allergy Severe angiodema Verified 07/29/20 08:58 meloxicam Allergy Severe angiodema Verified 07/29/20 08:58 NSAIDS (Non-Steroidal AdvReac Intermediate Liver Verified 07/29/20 08:58 Anti-Inflamma issues Review of Systems Constitutional Constitutional: Denies chills, Denies fatigue, Denies fever(s), Denies frequent falls, Denies lethargy and Denies weakness Eyes Eyes: Denies change in vision, Denies eye discharge, Denies irritation and Denies loss of vision ENT Ears, Nose, Mouth, and Throat: Reports change in voice, Denies dizziness, Denies neck pain, Denies sore throat and Reports throat swelling Cardiovascular Cardiovascular: Denies chest pain, Denies irregular heart rhythm, Denies lightheadedness, Denies palpitations, Reports dyspnea, Denies dyspnea on exertion and Denies orthopnea Respiratory Respiratory: Denies cough, Reports dyspnea, Denies dyspnea on exertion and Denies wheezing Gastrointestinal Gastrointestinal: Denies abdominal pain, Denies change in bowel habits, Denies diarrhea, Denies nausea and Denies vomiting Musculoskeletal Musculoskeletal: Denies neck pain and Denies numbness Integumentary/Breasts Skin/Breast: Denies pruritus, Denies erythema, Denies rash and Denies wounds Neurologic Neurologic: Denies behavioral changes, Denies confusion, Denies dizziness, Denies frequent falls, Denies loss of vision, Denies numbness and Denies weakness Psychiatric Psychiatric: Denies anxiety, Denies behavioral changes, Denies confusion, Denies depression, Denies homicidal ideation and Denies suicidal ideation Endocrine Endocrine: Denies fatigue, Denies flushing and Denies palpitations Hematologic/Lymphatic Hematologic/Lymphatic: Denies easy bruising Allergic/Immunologic Allergic/Immunologic: Denies urticaria, Reports throat swelling and Denies wheezing Patient History Medical History Angioedema Cluster headaches Footdrop Headache, migraine Hepatitis C History of alcohol abuse History of narcotic addiction Hyperlipidemia Hypertension Sleep apnea, organic Torticollis, acute Surgical History History of bilateral inguinal hernia repair History of fusion of cervical spine History of laminectomy History of nasal septoplasty Family History Father Hyperlipidemia Hypertension Cardiac disease Depression Mother Cardiac disease Depression Social History household members: spouse Smoking Status: Former smoker alcohol intake: former Exam Narrative Exam Narrative: GENERAL: [70] year old patient appears stated age. Well- nourished, well-developed patient, in obvious distress. Change in voice, troub le controlling secretions HEAD: Atraumatic. Normocephalic. EYES: Pupils equal round and reactive. Extraocular motions intact. No scleral icterus. No injection or drainage. ENT: Nose without bleeding, purulent drainage. Significant swelling of posterior pharynx with obvious potential for airway involvement NECK: Trachea midline. Non tender CARDIOVASCULAR: Regular rate and rhythm without murmurs, gallops, or rubs. RESPIRATORY: Clear to auscultation. Breath sounds equal bilaterally. No wheezes, rales, or rhonchi. GASTROINTESTINAL: Abdomen soft, non-tender, nondistended. EXTREMITIES: No edema or joint tenderness. BACK: Nontender without deformity or crepitance. No flank tenderness. NEURO: AOx3. SKIN: No rash or erythema of visible areas Initial Vital Signs Initial Vital Signs: Vital Signs Temperature 98.6 F 09/25/20 18:06 Pulse Rate 80 09/25/20 18:06 Respiratory Rate 16 09/25/20 18:06 Blood Pressure 176/95 H 09/25/20 18:06 Pulse Oximetry 99 09/25/20 18:06 Procedures Intubation Time out performed: Yes sedative: Ketamine Mg Given: 100 paralytic: Rocuronium Mg Given: 65 Laryngoscope: other ET Tube Size: 8 ET Tube Uncuffed: Yes Tube Secured Depth (cm): 22 Tube Secured Location: teeth Tube Placement Confirmation: Visualized tube passing through cords, Equal breath sounds bilaterally, No breath sounds over epigastrium, Confirmation by ca pnometry and Chest Xray Patient Tolerated Procedure: Well Intubation Complications: none Course Orders Ordered: ED Orders 09/25/20 20:16 Complement C3 Stat Complement C4 Stat Complete Blood Count AUTO DIFF Stat Comprehensive Metabolic Panel Stat Enoxaparin Sodium (Enoxaparin 40 Mg/0.4 Ml Syringe) 40 mg SUBCUT DAILY GEOVANNA Fentanyl (Fentanyl 100 Mcg/2 Ml Inj) 25 mcg IV Q1HR PRN PRN Reason: Pain, Severe (7-10) Last Admin: 09/25/20 22:49 Dose: 25 mcg Documented by: Admin: 09/25/20 19:15 Dose: 25 mcg Documented by: JLUIS Propofol (Propofol) 1,000 mg in 100 mls @ 3.361 mls/hr IV TITRATE GEOVANNA; Protocol Last Admin: 09/26/20 00:46 Dose: 40 mcg/kg/min, 26.889 mls/hr Documented by: Titration: 09/26/20 00:46 Dose: 40 mcg/kg/min, 26.889 mls/hr Documented by: Admin: 09/25/20 21:49 Dose: 40 mcg/kg/min, 26.889 mls/hr Documented by: Titration: 09/25/20 21:49 Dose: 30 mcg/kg/min, 20.167 mls/hr Documented by: Titration: 09/25/20 19:31 Dose: 30 mcg/kg/min, 20.167 mls/hr Documented by: Titration: 09/25/20 19:25 Dose: 20 mcg/kg/min, 13.444 mls/hr Documented by: Titration: 09/25/20 19:15 Dose: 10 mcg/kg/min, 6.722 mls/hr Documented by: Admin: 09/25/20 19:00 Dose: 5 mcg/kg/min, 3.361 mls/hr Documented by: CECI Dextrose/Sodium Chloride (Dextrose 5%-0.9% Ns) 1,000 mls @ 100 mls/hr IV CONT GEOVANNA Last Admin: 09/25/20 20:35 Dose: 100 mls/hr Documented by: YASMINE Piperacillin/Tazobactam/Dextrose (Zosyn) 3.375 gm in 50 mls @ 100 mls/hr IV Q6H GEOVANNA Last Admin: 09/26/20 03:12 Dose: 100 mls/hr Documented by: Infusion: 09/25/20 22:55 Dose: 0 mls/hr Documented by: Admin: 09/25/20 22:19 Dose: 100 mls/hr Documented by: YASMINE Methylprednisolone (Methylprednisolone 125 Mg/2 Ml Vial) 60 mg IV Q12H GEOVANNA Last Admin: 09/25/20 20:41 Dose: Not Given Documented by: YASMINE Naloxone HCl (Naloxone 0.4 Mg/Ml Vial) 0.2 mg IV Q2MIN PRN PRN Reason: Opiate Reversal Naloxone HCl (Naloxone 0.4 Mg/Ml Vial) 0.2 mg IV Q2MIN PRN PRN Reason: Opiate Reversal Discontinued Medications Ketamine HCl (Ketamine 500 Mg/5 Ml Inj) 95 mg 1 mg/kg (95 mg) IV NOW ONE Stop: 09/25/20 18:10 Last Admin: 09/25/20 18:19 Dose: 95 mg Documented by: CECI Methylprednisolone (Methylprednisolone 125 Mg/2 Ml Vial) 125 mg IV NOW ONE Stop: 09/25/20 19:03 Last Admin: 09/25/20 20:40 Dose: 125 mg Documented by: YASMINE Pantoprazole Sodium (Pantoprazole 40 Mg Vial) 40 mg IV NOW ONE Stop: 09/25/20 19:02 Last Admin: 09/25/20 20:40 Dose: 40 mg Documented by: YASMINE Rocuronium [place] (Rocuronium 100 Mg/10 Ml Vial) 67 mg 0.6 mg/kg (67 mg) IV NOW ONE Stop: 09/25/20 18:31 Last Admin: 09/25/20 19:30 Dose: Not Given Documented by: CECI Vital Signs Vital signs: Vital Signs - 8 hr 09/25/20 18:06 Temperature 98.6 F Pulse Rate 80 Respiratory Rate 16 Blood Pressure 176/95 H Pulse Oximetry 99 MDM - Allergic Reaction Lab Data Result diagrams: 09/25/20 20:16 09/25/20 20:16 Labs: Lab Results 09/25/20 Range/Units 18:09 COVID-19 PCR Negative (Negative) MDM Narrative Medical decision making narrative: patient with history of angioedema requiring intubations presents with rapid onset, rapid worsning throat swelling which is affecting voice, ability to breath and control secretions. He required intubation for airway protection. 1st pass success, but notable swelling and narrowed airway noted on video laryngoscopy Discharge Plan Departure Patient Disposition: Admitted As Inpatient Clinical Impression: Angioedema Qualifiers: Encounter type: initial encounter Qualified Code(s): T78.3XXA - Angioneurotic edema, initial encounter Respiratory failure Qualifiers: Chronicity: acute Respiratory failure complication: unspecified whether with hypoxia or hypercapnia Qualified Code(s): J96.00 - Acute respiratory failure, unspecified whether with hypoxia or hypercapnia Admit Date/Time: 09/25/20 18:55 Admit Provider: Jose Richmond
[2020-09-25] MEDS: KETAMINE 500 MG/5 ML INJ 95 MG IV (18:19)
[2020-09-25 18:26] LABS: COVID19 -Nasal RAPID Negative (Negative)
[2020-09-25] MEDS: propofoL 1,000 MG/100 ML VIAL 3.361 MG IV (19:00)
[2020-09-25] MEDS: fentaNYL 100 MCG/2 ML INJ 25 MCG IV ×2 (19:15→22:49)
[2020-09-25] MEDS: fentaNYL 100 MCG/2 ML INJ (19:31)
--- NOTE | 2020-09-25 20:15 | PC.NURSE ---
Once we got the patient transferred into the ICU bed I stuck with the ICU nurses to help secure the patients IV, restraints, and get the patient more comfortable.
[2020-09-25 20:29] LABS: Add Manual Diff / Slide Review NO; Basophils Absolute Auto 100 /uL (0-100); Basophils Percent Auto 0.7 % (0-2); Eosinophils Absolute Auto 600 /uL (0-450); Eosinophils Percent Auto 3.9 % (2-4); Hematocrit 46.1 % (41-53); Hemoglobin 15.4 g/dL (13.5-17.5); Lymphocytes Absolute Auto 1400 /uL (1100-4500); Lymphocytes Percent Auto 8.9 % (25-40); Mean Corpuscular HGB Conc 33.4 % (30-36); Mean Corpuscular Hemoglobin 29.4 PG (26-34); Monocytes Absolute Auto 1100 /uL (0-900); Monocytes Percent Auto 6.8 % (3-14); Neutrophils Absolute Auto 12300 /uL (1500-7000); Neutrophils Percent Auto 79.7 % (50-75); Platelet Count 290 X10^3/uL (150-400); Red Blood Cell Count 5.24 X10^6/uL (4.5-5.9); Red Cell Distribution Width 14.4 % (11.6-14.8); White Blood Cell Count 15.4 X10^3/uL (4.5-11.0)
[2020-09-25] MEDS: DEXTROSE 5%-0.9% NS 1,000 ML 100 ML IV (20:35)
[2020-09-25 20:39] LABS: Alanine Aminotransferase 27 IU/L (<50); Albumin 4.3 g/dL (3.5-5.0); Albumin Globulin Ratio 1.2 (1.0-2.8); Alkaline Phosphatase 67 U/L (38-126); Aspartate Aminotransferase 27 IU/L (17-59); BUN Creatinine Ratio 17.8 (6-22); Bilirubin Total 0.5 mg/dL (0.2-1.3); Blood Urea Nitrogen 21 mg/dL (9-20); Calcium 8.8 mg/dL (8.4-10.2); Carbon Dioxide 26 mmol/L (22-32); Chloride 105 mmol/L (98-107); Estimated Glomerular Filt Rate > 60.0 mL/min (>60); Globulin 3.5 g/dL (1.7-4.1); Glucose 147 mg/dL (80-110); HEMOLYSIS < 15 (0-50); Potassium 4.1 mmol/L (3.4-5.1); Sodium 138 mmol/L (137-145); Total Protein 7.8 g/dL (6.3-8.2)
[2020-09-25] MEDS: PANTOPRAZOLE 40 MG VIAL IV (20:40)
[2020-09-25] MEDS: methylPREDNISolone 125 MG/2 ML VIAL IV (20:40)
--- NOTE | 2020-09-25 20:41 | P.HP_ITS ---
History of Present Illness History of Present Illness Date Patient Seen: 09/25/20 Time Patient Seen: 21:00 Chief complaint: allergic reaction Narrative: Mr. 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 Unable to obtain a history from the patient as he is in an induced coma and intubated. Per the ED provider he, presented by EMS with a chief complaint of rapid onset of tongue or posterior pharynx swelling over the past 30 minutes or so. On ar rival he is now having voice change and having difficulty controlling secretions. His prior to episodes were thought to be related to lisinopril and meloxicam. He was given epinephrine and steroids by EMS. He denied any new medications or other dietary change. He denied having fever, chills, or nausea or vomiting. He denied any chest pain and but complained of having shortness of breath. Patient was seen in the ED and immediately intubated after being administered ketamine and Rocuronium. The patient is afebrile with temperature of 97.7?, heart rate of 86, blood pressure 123/77, respirations 18, tidal volume of 450, 55% PEEP of 8. X-ray of the chest to confirm ET tube placement indicated Diffuse patchy airspace opacity bilaterally. The patient was treated with methylprednisolone 125 mg, Benadryl 50 mg and Pepcid 20 mg at which the patient had a transient improvement and then began to decompensate again and received epinephrine 0.4 mg subcu and racemic epinephrine nebulizer. The plan was to treat the patient and discharge him to home however with relapse the patient will be admitted to ICU under the medicine service for acute angioedema which is previously required intubation. Patient does have an elevated white count of 15.4 however this is unknown whether the the steroid administered to the patient verses an active infection is the cause, he does have a left shift of 12,300 neutrophils, eosinophils are also elevated at 600, BUN is mildly elevated at 21, glucose 147, liver enzymes within normal limits, MRSA PCR is pending, complement C3 and C4 are pending, and COVId-19 PCR is negative. Patient History Medical History Angioedema Cluster headaches Footdrop Headache, migraine Hepatitis C History of alcohol abuse History of narcotic addiction Hyperlipidemia Hypertension Sleep apnea, organic Torticollis, acute Surgical History History of bilateral inguinal hernia repair History of fusion of cervical spine History of laminectomy History of nasal septoplasty Family & Social History Family History Father Hyperlipidemia Hypertension Cardiac disease Depression Mother Cardiac disease Depression Social History: household members spouse Safety & Behavioral: Feels Safe in Current Yes Environment Been Physically Hurt or No Threatened By a Person Tobacco & Substance use: Tobacco type cigarettes Smoking Status Former smoker alcohol intake former Substance Use Type prescription drug Meds Home Medications and Allergies Home Medications Medication Instructions Recorded Confirmed Type atorvastatin 20 mg tablet 20 mg PO DAILY 10/18/18 09/04/20 History pantoprazole 40 mg tablet,delayed 40 mg PO DAILY 10/18/18 09/04/20 History release Respironics Dreamstation CPAP #1 ea 06/13/19 09/04/20 History carvedilol 6.25 mg PO BID 01/06/20 09/04/20 History tramadol 50 mg tablet 50 - 100 mg PO Q6H PRN tab 03/12/20 09/04/20 History bupropion HCl 300 mg 24 hr tablet, 300 mg PO QAM #90 tab 09/04/20 09/04/20 Rx extended release dextroamphetamine-amphetamine ER 60 mg PO QAM #60 cap 09/04/20 09/04/20 Rx 30 mg 24hr capsule,extend release dextroamphetamine-amphetamine ER 60 mg PO QAM #60 cap 09/04/20 09/04/20 Rx 30 mg 24hr capsule,extend release Allergies Allergy/AdvReac Type Severity Reaction Status Date / Time lisinopril Allergy Severe angiodema Verified 07/29/20 08:58 meloxicam Allergy Severe angiodema Verified 07/29/20 08:58 NSAIDS (Non-Steroidal AdvReac Intermediate Liver Verified 07/29/20 08:58 Anti-Inflamma issues Review of Systems Review of Systems ROS: Yes unobtainable due to endotracheal tube Exam Vital Signs (past 8 hours): - 09/25/20 18:06 09/25/20 19:56 Temperature 98.6 F 97.7 F Pulse Rate 80 86 Respiratory Rate 16 16 Blood Pressure 176/95 H 123/77 Pulse Oximetry 99 99 Oxygen Delivery Method Room Air Narrative Exam Narrative: Gen: Obtunded and intubebated 70 y.o. male, is adquately sedated and does not appear uncomfortable HEENT: normocephalic, atraumatic, conjunctiva clear, sclera non-icteric, oral mucosa dry with pink tinged sputum Neck: supple, full ROM, no JVD, trachea is midline Resp: Lungs CTA, ventilated CV: RRR, no murmur or rubs Abd: soft, non-tender, normoactive BTs Skin: no lesions or rashes, dry and intact Neuro: Sedated and intubated with a GCS of 4 Extremities: patient is in an induced coma Psyche: unknown Objective Labs Result Diagrams: 09/25/20 20:16 09/25/20 20:16 Labs: Laboratory Results - last 24 hr 09/25/20 09/25/20 09/25/20 18:09 20:16 20:16 WBC 15.4 H RBC 5.24 Hgb 15.4 Hct 46.1 MCV 88.0 MCH 29.4 MCHC 33.4 RDW 14.4 Plt Count 290 Neut % (Auto) 79.7 H Lymph % (Auto) 8.9 L [place] % (Auto) 6.8 Eos % (Auto) 3.9 Baso % (Auto) 0.7 Neut # (Auto) 28730 H Lymph # (Auto) 1400 [place] # (Auto) 1100 H Eos # (Auto) 600 H Baso # (Auto) 100 Sodium 138 Potassium 4.1 Chloride 105 Carbon Dioxide 26 BUN 21 H Creatinine 1.18 Estimated GFR > 60.0 BUN/Creatinine Ratio 17.8 Glucose 147 H Calcium 8.8 Total Bilirubin 0.5 AST 27 ALT 27 Alkaline Phosphatase 67 Total Protein 7.8 Albumin 4.3 Globulin 3.5 Albumin/Globulin Ratio 1.2 COVID-19 PCR Negative Assessment & Plan Assessment & Plan narrative: Hi Peck is admitted to the ICU for management and treatment of a suspected aspiration pneumonia and acute angioedema Acute angioedema suspected late effect of prior SAW-inhibitor use verses C-1 esterase deficiency, acute, present on admission -Concern related to prior angioedema and subsequent intubation precipitated by lisinopril, meloxicam and or verapamil. Today's presentation is similar to prior event. The patient had been taking lisinpril for 15 years, however this clinical presentation is known to occur days to years after treatment with saw-i nhibitors and recurrences after ceasing taking the saw is not uncommon. -Lisinopril had been discontinued in favor of carvedilol. Precipitating medication is still unclear. -His white count is 15.4K with an increase in eosinophils to 600. -Patient received methylprednisolone 125 mg in the ER will continue methylprednisolone 60 mg every 12 hours. -Patient received pantoprazole 40 mg and will continue pantoprazole 40 mg daily. -Patient is on a propofal drip with IV fentanyl pushes 25 mcg q 1 hour as needed -C-3 and C-4 complement was ordered in the ED. If patient is determined to have a C-1 esterace deficiency, he will need to be referred to a director of casino marketing for further chronic management. Suspected ARDS in the setting of probable aspiration pneumonia, acute, present on admission -patient has pink frothy sputum an x-ray indicates findings that may be consistent with an aspiration pneumonia -will initiate IV Zosyn 3.75 mg q.6 hours -sputum sample has been sent for culture -Lactate and procalcitonin will be repeated in the morning. -continue with vent settings and Q shift ABGs Medication dependence, acute, present on admission, active. -Patient has been prescribed dexamphentermine-amphetamine 30 mg extended release 2 tabs daily in the morning -Ordered 12 lead EKG, chest x-ray, cardiac panel. Essential hypertension, chronic, present on admission, active. -Patient's blood pressure on arrival is 176/95 improved to 123/77 on admission to ICU. -Will continue carvedilol 6.25 mg po bid Hyperlipidemia, chronic, stable -Will continue patient's home medication of atorvastatin 20 mg daily. Gastroesophageal reflux disease, chronic, stable -Patient routinely takes pantoprazole 40 mg daily. He will receive IV pantoprazole 40 mg daily 7. Obstructive sleep apnea, chronic, stable. -Currently ventilated to protect airway and for treatment of suspected ARDS VTE prophylaxis: Enoxaparin 40 mg subQ daily. Wells score is 1 The patient is admitted to the intensive care unit related to continuing angioedema and history of requiring previous intubation for same. At this time the patient is admitted inpatient status with expected length of stay to be greater than 2 midnights. FEN: Normal saline 100ml/hour, NPO, electrolytes in the am Dispo: unknown at this time Code status: Patient is FULL CODE and his was previously designated as a surrogate decision maker CRITICAL CARE TIME: 60 minutes. Scores GCS Kevin coma scale eye opening: To pressure [place] coma scale verbal response: None [place] coma scale motor response: None Kevin coma scale total score: 4 Wells' Criteria for PE Clinical signs and symptoms of DVT: No PE is #1 Dx or equally likely: No Heart rate > 100: No Immobilization at least 3 days or surg in previous 4 weeks: No History of PE or DVT: No Hemoptysis: Yes Malignancy w/Treatment within 6 months or palliative: No Wells' PE Score total: 1 Quality VTE Deep Vein Thrombosis/Pulmonary Embolism Present on Admission: No
[2020-09-25 21:39] LABS: Fractionated Inspired Oxygen 100; HCO3 ABG 25 mmol/L (22-26); Oxygen Saturation ABG 100 % (95-100); PCO2 ABG 49.7 mmHg (35-45); PO2 ABG 211 mmHg (80-100); TCO2 ABG 26 mmol/L (21-31)
[2020-09-25] MEDS: propofoL 1,000 MG/100 ML VIAL 26.889 MG IV (21:49)
[2020-09-25] MEDS: PIPERACILLIN-TAZO 3.375 GM/50 ML FROZ.PIGGY IV (22:19)
--- NOTE | 2020-09-25 22:39 | PC.NURSE ---
2230- Patient is vented and sedated. Vitals stable. Urine in torres catheter clear yellow. Patient has a Rass score of -4. Propofol gtt at 40mic/kg/min. Patient updated on condition. Soft wrist restraints in place per order.
[2020-09-26] VITALS (40 sets, daily range): BP systolic 91–182; BP diastolic 51–83; PULSE 68–89; RESP 10–27; TEMP 36.1–36.9; O2SAT 93–100
[2020-09-26] MEDS: propofoL 1,000 MG/100 ML VIAL 26.889 MG IV ×3 (00:46→07:59)
[2020-09-26 01:31] LABS: pH ABG 7.37 (7.35-7.45)
[2020-09-26 01:32] LABS: Fractionated Inspired Oxygen 40; HCO3 ABG 22 mmol/L (22-26); Oxygen Saturation ABG 99 % (95-100); PO2 ABG 138 mmHg (80-100); TCO2 ABG 23 mmol/L (21-31)
[2020-09-26] MEDS: PIPERACILLIN-TAZO 3.375 GM/50 ML FROZ.PIGGY IV (03:12)
[2020-09-26 05:23] LABS: Add Manual Diff / Slide Review NO; Basophils Absolute Auto 0 /uL (0-100); Basophils Percent Auto 0.2 % (0-2); Eosinophils Absolute Auto 0 /uL (0-450); Eosinophils Percent Auto 0.1 % (2-4); Hematocrit 43.8 % (41-53); Hemoglobin 14.8 g/dL (13.5-17.5); Lymphocytes Absolute Auto 800 /uL (1100-4500); Lymphocytes Percent Auto 6.3 % (25-40); Mean Corpuscular HGB Conc 33.7 % (30-36); Mean Corpuscular Hemoglobin 29.8 PG (26-34); Mean Corpuscular Volume 88.3 fL (80-100); Monocytes Absolute Auto 100 /uL (0-900); Monocytes Percent Auto 0.7 % (3-14); Neutrophils Absolute Auto 11200 /uL (1500-7000); Neutrophils Percent Auto 92.7 % (50-75); Platelet Count 267 X10^3/uL (150-400); Red Blood Cell Count 4.96 X10^6/uL (4.5-5.9); Red Cell Distribution Width 14.1 % (11.6-14.8)
[2020-09-26 05:28] LABS: Lactate (Lactic Acid) 2.2 mmol/L (0.7-2.1)
[2020-09-26 05:30] LABS: Alanine Aminotransferase 25 IU/L (<50); Albumin 4.1 g/dL (3.5-5.0); Albumin Globulin Ratio 1.3 (1.0-2.8); Alkaline Phosphatase 67 U/L (38-126); Aspartate Aminotransferase 24 IU/L (17-59); BUN Creatinine Ratio 17.7 (6-22); Bilirubin Total 0.5 mg/dL (0.2-1.3); Blood Urea Nitrogen 20 mg/dL (9-20); Calcium 8.9 mg/dL (8.4-10.2); Carbon Dioxide 24 mmol/L (22-32); Chloride 107 mmol/L (98-107); Estimated Glomerular Filt Rate > 60.0 mL/min (>60); Globulin 3.1 g/dL (1.7-4.1); Glucose 207 mg/dL (80-110); HEMOLYSIS < 15 (0-50); Potassium 4.4 mmol/L (3.4-5.1); Sodium 137 mmol/L (137-145); Total Protein 7.2 g/dL (6.3-8.2)
[2020-09-26 05:43] LABS: Procalcitonin < 0.05 ng/mL (<0.5)
[2020-09-26] MEDS: DEXTROSE 5%-0.9% NS 1,000 ML 100 ML IV (06:23)
[2020-09-26] MEDS: methylPREDNISolone 125 MG/2 ML VIAL 60 MG IV ×2 (06:52→19:29)
[2020-09-26 07:17] LABS: Reflexed Lactate in 2 Hours Y
[2020-09-26] MEDS: AZITHROMYCIN 500 MG in DEXTROSE 5% IN WATER 250 ML IV (08:01)
[2020-09-26] MEDS: ENOXAPARIN 40 MG/0.4 ML SYRINGE SUBCUT (08:01)
[2020-09-26] MEDS: fentaNYL 100 MCG/2 ML INJ 25 MCG IV (09:26)
[2020-09-26] MEDS: CEFTRIAXONE 2 GM/50 ML FROZ.PIGGY IV (09:31)
--- NOTE | 2020-09-26 10:11 | RT ---
vent checked and pt restless/restrained. MD and Rn at bedside. Vent plugged into red outlet and bag mask unit [facility] Pos cuff leak, no plans to extubate today. All alarms on and functional
--- NOTE | 2020-09-26 10:21 | RT ---
Small purplish blood blister noted on Right upper lip. Rn aware
[2020-09-26] MEDS: FAMOTIDINE 20 MG/50 ML PIGGYBACK 200 MG IV (11:06)
[2020-09-26] MEDS: propofoL 1,000 MG/100 ML VIAL 20.167 MG IV (11:44)
--- NOTE | 2020-09-26 12:54 | PC.NURSE ---
Addendum entered by Moustapha Mcfarland R.N. 09/26/20 13:24: Performed bedside swallow per order. Pt tolerated water and jello without s/s of aspiration. His only complaint at this time is that he feels he cannot clear his throat. He does demonstrate a strong cough to command. Reviewed assessment findings with Dr. Hicks. Orders received for clear liquid diet. Original Note: Rec'd pt in bed sedated on propofol. Sedation vacation and SBT performed with good results. RT noted a good cuff leak and pt was able to maintain SPO2 >95% with adequate ventilation and resp effort on cpap trial. Dr. Hicks rounded and assessed readiness of extubation. Verbal orders received to extubate. Pt was extubated to RA at 1210. He is AO x4 and is making his needs known with clear speech. Minimal assist OOB. Ambulated to with SBA and FWW. Pt is requesting green jello. Dr. Hicks gave verbal order to perform a bedside swallow screen.
--- NOTE | 2020-09-26 14:02 | P.PN_ITS ---
Subjective Subjective Date Patient Seen: 09/26/20 Interval history: Hi Peck is a 70-year-old male with a past medical history significant for hypertension, hyperlipidemia, cluster migraine headaches, GERD, attention deficit disorder, anxiety, depression obstructive sleep on CPAP, chronic low back pain secondary to degenerative disc disease with resultant foot drop, treated hepatitis C, addictive personality with previous narcotic dependence in remission and several episodes of angioedema requiring intubation (09/2019 and 12/2019) who presented to the ED via EMS with rapid onset of tongue or posterior pharynx swelling over 30 minutes prior to arrival and intubated in ED for airway protection. The patient is lying in bed intubated and minimally sedated. Patient is curre ntly on pressure support trial of 10/5 maintaining good tidal volumes 600's with RR 16-22 with SpO2 highs 90's on FiO2 0.30. He has a good cuff leak. Plan to extubate. Exam Vital Signs (past 8 hours): - 09/26/20 06:30 09/26/20 07:00 09/26/20 07:30 Temperature 96.9 F L Pulse Rate 79 74 71 Respiratory Rate 18 19 Blood Pressure 107/59 L 100/55 L 94/51 L Pulse Oximetry 94 93 94 09/26/20 08:00 09/26/20 08:30 09/26/20 09:00 Temperature 97.4 F L Pulse Rate 69 81 85 Respiratory Rate 18 19 21 Blood Pressure 105/55 L 113/62 118/64 Pulse Oximetry 95 95 96 09/26/20 09:30 09/26/20 10:00 09/26/20 10:30 Temperature Pulse Rate 86 79 76 Respiratory Rate 21 18 18 Blood Pressure 112/61 105/58 L 103/57 L Pulse Oximetry 97 95 95 09/26/20 11:00 09/26/20 11:30 09/26/20 12:00 Temperature 98.0 F Pulse Rate 80 80 85 Respiratory Rate 18 18 20 Blood Pressure 113/62 133/68 Pulse Oximetry 96 97 98 09/26/20 12:10 09/26/20 12:30 09/26/20 13:00 Temperature Pulse Rate 88 79 Respiratory Rate 10 L 27 H Blood Pressure Pulse Oximetry 98 95 Fraction of Inspired Oxygen 40 Oxygen Delivery Method Mechanical Ventilation Narrative Exam Narrative: General: Older gentleman lying in bed intubated and minimally sedated, awake, alert and follows commands. HEENT: Normocephalic, atraumatic. External ears without defect. Pupils equal, ro und, and reactive to light. Anicteric sclerae, moist conjunctivae, and no lid lag. ET and OG tube in place Neck: Supple with full range of motion. No jugular venous distension. No lymphadenopathy or thyromegaly. No perceivable neck swelling. Cardiovascular: Regular rate and rhythm without murmurs, rubs, or gallops appreciated. Pulmonary: Clear to auscultation bilaterally without crackles, wheezes, or rhonchi. Passive on ventilator. Abdomen: Soft, obese, bowel sounds present, nontender, nondistended. No hepatosplenomegaly or masses appreciated. Extremities: No clubbing, cyanosis, or edema. Skin: Normal temperature, turgor, and texture; no rash, ulcers, or subcutaneous nodules appreciated. Neurological: Cranial nerves grossly intact. Objective Labs Result Diagrams: 09/26/20 04:58 09/26/20 04:58 Labs: Laboratory Results - last 24 hr 09/25/20 09/25/20 09/25/20 18:09 20:16 20:16 WBC 15.4 H RBC 5.24 Hgb 15.4 Hct 46.1 MCV 88.0 MCH 29.4 MCHC 33.4 RDW 14.4 Plt Count 290 Neut % (Auto) 79.7 H Lymph % (Auto) 8.9 L [place] % (Auto) 6.8 Eos % (Auto) 3.9 Baso % (Auto) 0.7 Neut # (Auto) 03980 H Lymph # (Auto) 1400 [place] # (Auto) 1100 H Eos # (Auto) 600 H Baso # (Auto) 100 ABG pH ABG pCO2 ABG pO2 ABG HCO3 ABG Total CO2 ABG O2 Saturation ABG Base Excess FiO2 Sodium 138 Potassium 4.1 Chloride 105 Carbon Dioxide 26 BUN 21 H Creatinine 1.18 Estimated GFR > 60.0 BUN/Creatinine Ratio 17.8 Glucose 147 H Lactate Calcium 8.8 Magnesium Total Bilirubin 0.5 AST 27 ALT 27 Alkaline Phosphatase 67 Total Protein 7.8 Albumin 4.3 Globulin 3.5 Albumin/Globulin Ratio 1.2 Procalcitonin Nasal Screen MRSA (PCR) COVID-19 PCR Negative 09/25/20 09/25/20 09/26/20 20:24 20:51 01:10 WBC RBC Hgb Hct MCV MCH MCHC RDW Plt Count Neut % (Auto) Lymph % (Auto) [place] % (Auto) Eos % (Auto) Baso % (Auto) Neut # (Auto) Lymph # (Auto) [place] # (Auto) Eos # (Auto) Baso # (Auto) ABG pH 7.30 L 7.37 ABG pCO2 49.7 H 39.0 ABG pO2 211 H 138 H ABG HCO3 25 22 ABG Total CO2 26 23 ABG O2 Saturation 100 99 ABG Base Excess -2.0 -3.0 L FiO2 100 40 Sodium Potassium Chloride Carbon Dioxide BUN Creatinine Estimated GFR BUN/Creatinine Ratio Glucose Lactate Calcium Magnesium Total Bilirubin AST ALT Alkaline Phosphatase Total Protein Albumin Globulin Albumin/Globulin Ratio Procalcitonin Nasal Screen MRSA (PCR) Negative for mrsa COVID-19 PCR 09/26/20 09/26/20 09/26/20 04:58 04:58 04:58 WBC 12.0 H RBC 4.96 Hgb 14.8 Hct 43.8 MCV 88.3 MCH 29.8 MCHC 33.7 RDW 14.1 Plt Count 267 Neut % (Auto) 92.7 H Lymph % (Auto) 6.3 L [place] % (Auto) 0.7 L Eos % (Auto) 0.1 L Baso % (Auto) 0.2 Neut # (Auto) 65547 H Lymph # (Auto) 800 L [place] # (Auto) 100 Eos # (Auto) 0 Baso # (Auto) 0 ABG pH ABG pCO2 ABG pO2 ABG HCO3 ABG Total CO2 ABG O2 Saturation ABG Base Excess FiO2 Sodium 137 Potassium 4.4 Chloride 107 Carbon Dioxide 24 BUN 20 Creatinine 1.13 Estimated GFR > 60.0 BUN/Creatinine Ratio 17.7 Glucose 207 H Lactate Calcium 8.9 Magnesium 2.0 Total Bilirubin 0.5 AST 24 ALT 25 Alkaline Phosphatase 67 Total Protein 7.2 Albumin 4.1 Globulin 3.1 Albumin/Globulin Ratio 1.3 Procalcitonin < 0.05 Nasal Screen MRSA (PCR) COVID-19 PCR 09/26/20 09/26/20 04:58 07:40 WBC RBC Hgb Hct MCV MCH MCHC RDW Plt Count Neut % (Auto) Lymph % (Auto) [place] % (Auto) Eos % (Auto) Baso % (Auto) Neut # (Auto) Lymph # (Auto) [place] # (Auto) Eos # (Auto) Baso # (Auto) ABG pH ABG pCO2 ABG pO2 ABG HCO3 ABG Total CO2 ABG O2 Saturation ABG Base Excess FiO2 Sodium Potassium Chloride Carbon Dioxide BUN Creatinine Estimated GFR BUN/Creatinine Ratio Glucose Lactate 2.2 H 2.0 Calcium Magnesium Total Bilirubin AST ALT Alkaline Phosphatase Total Protein Albumin Globulin Albumin/Globulin Ratio Procalcitonin Nasal Screen MRSA (PCR) COVID-19 PCR PFSH Medical History Angioedema Cluster headaches Footdrop Headache, migraine Hepatitis C History of alcohol abuse History of narcotic addiction Hyperlipidemia Hypertension Sleep apnea, organic Torticollis, acute Surgical History History of bilateral inguinal hernia repair History of fusion of cervical spine History of laminectomy History of nasal septoplasty Family History Father Hyperlipidemia Hypertension Cardiac disease Depression Mother Cardiac disease Depression Social History household members: spouse Smoking Status: Former smoker alcohol intake: former Assessment & Plan Assessment & Plan narrative: Hi Peck is a 70-year-old male with a past medical history significant for hypertension, hyperlipidemia, cluster migraine headaches, GERD, attention deficit disorder, anxiety, depression obstructive sleep on CPAP, chronic low back pain secondary to degenerative disc disease with resultant foot drop, treated hepatitis C, addictive personality with previous narcotic dependence in remission and several episodes of angioedema requiring intubation (09/2019 and 12/2019) who presented to the ED via EMS with rapid onset of tongue or posterior pharynx swelling over 30 minutes prior to arrival and intubated in ED for airway protection. 1. Acute angioedema, status post intubation for airway protection, present on admission. Active. -Etiology unclear but possibly due to late effect of prior SAW-inhibitor use versus C-1 esterase deficiency versus marijuana use versus sukhjinder rgic/environmental reaction. Patient has history of prior angioedema requiring intubation secondary to lisinopril, meloxicam and/or verapamil. The patient had been taking lisinpril for 15 years in which angioedema may occur days to years during treatment with saw-inhibitors and recurrences after ceasing taking an SAW-inhibitor is not uncommon. -Initial WBC 15.4 with eosinophils 600 and procalcitonin negative < 0.05. WBC trending down now 12.0 with no eosinophils and procalcitonin remains negative. -Received methylprednisolone 125 mg IV x1 in ED. Continue methylprednisolone 60 mg every 12 hours. -Continue home pantoprazole 40 mg daily. -C-3 and C-4 complement was ordered in the ED. If patient is determined to have a C-1 esterace deficiency, he will need to be referred to a hydroelectric plant technician for further chronic management. -Continue respiratory therapy evaluation and treatment. Performed sedation vacation and pressure support trial which patient passed and has a good cuff leak. Plan to extubate today. Continue supplemental oxygen as necessary to maintain oxygen saturations 88-92%. 2. Possible acute bacterial pneumonia, possibly aspiration, present on admission. Active. -Patient with pink frothy sputum status post intubation with sputum culture preliminarily growing heavy mixed residential joe. -Initial WBC 15.4 and procalcitonin negative < 0.05. WBC trending down now 12.0 and procalcitonin remains negative. -Chest x-ray demonstrated bilateral patchy infiltrates suspicious for multifocal versus atypical pneumonia. -Received Zosyn 3.375 g IV x1. Continue ceftriaxone 2 g IV daily and azithromycin 500 mg IV x3 doses to treat bacterial and possibly atypical pneumonia. -Continue respiratory therapy evaluation and treatment. -Continue treatment of angioedema as above. 3. Hypertension, chronic, present on admission. Stable. -Continue home carvedilol 6.25 mg twice daily. 4. Hyperlipidemia, chronic, present on admission. Stable. -Continue home atorvastatin 20 mg daily. 5. GERD, chronic, present on admission. Stable. -Continue pantoprazole 40 mg daily. 6. MICHAELLE on CPAP, chronic, present on admission. Stable. -Currently intubated for airway protection as above. -Continue CPAP per RT protocol once extubated. 7. Depression, chronic, present on admission. Stable. -Continue home bupropion 300 mg daily. 8. Attention deficit disorder, chronic, present on admission. Stable. -Patient is taking dexamphentermine-amphetamine ER 60 mg daily which has been held. 9. Chronic cluster migraine headaches, present on admission. Stable. -Patient reports that he smokes marijuana for migraine headaches as this is the only effective treatment in the past. He reports he has been to several neurologists and headache clinics with no therapeutic relief. Patient has not tried Botox injections and recommended consideration of trial of Botox. 10. Morbid obesity, chronic, present on admission. Stable. -BMI 36.5. -Plan to addiction treatment counselor patient on lifestyle modification including: diet and exercise once extubated. Code status: Full code, was previously designated as a surrogate decision maker VTE prophylaxis: Enoxaparin Disposition: Patient likely to discharge home tomorrow if he remains stable status post extubation. Quality VTE Deep Vein Thrombosis/Pulmonary Embolism Present on Admission: No
[2020-09-26] MEDS: TRAMADOL 50 MG TABLET PO (15:10)
[2020-09-26 15:14] LABS: Procalcitonin < 0.05 ng/mL (<0.5)
--- NOTE | 2020-09-26 16:26 | CM.DANOTE ---
DCP assessment: EMR reviewed: Javier flores 70 yr old male who was admitted for Angioedema / allergic reaction. Patient was intubated. PCP is Dr. Sauceda. Cm/RN attempted to meet with patient at the bedside but patient was intubated at the time of CM visit. Cm called patients Ursula and spoke with her about patient. Patient currently lives in a two story home in [facility] with his . drives and is Independent with all ADLs at baseline. Patient does not use DME at [employer]. this is the third episode of Angio edema in the last year. Patients stated she is unsure of what is causing the allergic reactions. I: Medicare and premera Plan: D/C Home with when medically stable. patients will provide transport home POV but does not want to come into the hospital would like patient brought down to meet her outside. CM/RN shared this information with patients nurse and gave patients CM number. No identified D/C planning needs noted at this time. Cm department will follow to assist with any new D/C planning needs that may arise. Margo Jacobs RN Discharge Planning/Care Management CM Discharge Assessment Start: 09/26/20 16:17 Freq: Status: Active Protocol: Document 09/26/20 16:17 HS (Rec: 09/26/20 16:26 HS [id number]) Discharge Planning Assessment Assigned Senior Accountant Analyst Margo Jacobs RN DPOA/Assigned Designee Name Ursula Peck () Contact Information [phone] Advance Directives? Yes History Provided By Significant Other,Medical Record Has Patient been admitted in last 30 No days? Prior Living Arrangements House Household Members spouse Type of transporation used prior to Drives own vehicle admit Independent with ADL's Yes Is patient alert and oriented? patient intubated at time of CM visit Caregiver for Another No Barriers to Discharge No Discharge Plan Home Transportation Arrangement Family to provide transport. Referrals Initiated Other Additional Comment Provided patient with community senior resource booklet and [facility]. Whiteboard Updated in Patient Room with Yes name and ext. # of Senior Accountant Analyst Review Status In Process Next Review Type Continued Stay Review
[2020-09-26] MEDS: TRAMADOL 50 MG TABLET 100 MG PO (18:18)
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
[2020-09-26] MEDS: carvediloL 3.125 MG TABLET 6.25 MG PO (20:56)
[2020-09-27] MEDS: TRAMADOL 50 MG TABLET 100 MG PO ×2 (02:11→08:33)
[2020-09-27 03:18] VITALS: BP 125/59; PULSE 74; RESP 18; TEMP 36.4; O2SAT 98
[2020-09-27 05:36] LABS: Add Manual Diff / Slide Review NO; Basophils Absolute Auto 0 /uL (0-100); Basophils Percent Auto 0.1 % (0-2); Eosinophils Absolute Auto 0 /uL (0-450); Hematocrit 42.8 % (41-53); Hemoglobin 14.6 g/dL (13.5-17.5); Lymphocytes Absolute Auto 1100 /uL (1100-4500); Lymphocytes Percent Auto 5.4 % (25-40); Mean Corpuscular HGB Conc 34.1 % (30-36); Mean Corpuscular Hemoglobin 29.9 PG (26-34); Mean Corpuscular Volume 87.7 fL (80-100); Monocytes Absolute Auto 1100 /uL (0-900); Monocytes Percent Auto 5.2 % (3-14); Neutrophils Absolute Auto 19100 /uL (1500-7000); Neutrophils Percent Auto 89.3 % (50-75); Platelet Count 280 X10^3/uL (150-400); Red Blood Cell Count 4.88 X10^6/uL (4.5-5.9); Red Cell Distribution Width 14.4 % (11.6-14.8)
[2020-09-27 05:43] LABS: White Blood Cell Count 21.4 X10^3/uL (4.5-11.0)
[2020-09-27 05:45] LABS: Alanine Aminotransferase 20 IU/L (<50); Albumin 4.1 g/dL (3.5-5.0); Albumin Globulin Ratio 1.2 (1.0-2.8); Alkaline Phosphatase 62 U/L (38-126); Aspartate Aminotransferase 21 IU/L (17-59); BUN Creatinine Ratio 16.2 (6-22); Bilirubin Total 0.4 mg/dL (0.2-1.3); Blood Urea Nitrogen 16 mg/dL (9-20); Carbon Dioxide 25 mmol/L (22-32); Chloride 107 mmol/L (98-107); Estimated Glomerular Filt Rate > 60.0 mL/min (>60); Globulin 3.3 g/dL (1.7-4.1); Glucose 134 mg/dL (80-110); HEMOLYSIS < 15 (0-50); Magnesium 2.1 mg/dL (1.6-2.3); Sodium 139 mmol/L (137-145); Total Protein 7.4 g/dL (6.3-8.2)
[2020-09-27] MEDS: PANTOPRAZOLE 40 MG TABLET PO (05:57)
[2020-09-27 05:59] LABS: Procalcitonin < 0.05 ng/mL (<0.5)
--- NOTE | 2020-09-27 06:13 | PC.NURSE ---
Hospitalist informed of pts. WBC result this am of 21.4.
[2020-09-27 07:36] LABS: Complement C3 157 mg/dL (82-167)
[2020-09-27 08:30] VITALS: BP 160/75; PULSE 57; RESP 18; TEMP 36.5
[2020-09-27] MEDS: carvediloL 3.125 MG TABLET 6.25 MG PO (08:32)
[2020-09-27] MEDS: ATORVASTATIN 20 MG TABLET PO (08:33)
[2020-09-27] MEDS: buPROPion XL 150 MG TAB 300 MG PO (08:33)
[2020-09-27] MEDS: CEFTRIAXONE 2 GM/50 ML FROZ.PIGGY IV (08:33)
[2020-09-27] MEDS: DOCUSATE 100 MG CAPSULE PO (09:29)
[2020-09-27] MEDS: polyethylene glycoL 3350 17 GM POWD.PACK PO (09:29)
[2020-09-27] MEDS: AZITHROMYCIN 250 MG TABLET 500 MG PO (09:29)
--- NOTE | 2020-09-27 10:14 | P.DS_ITS ---
History of Present Illness History of Present Illness Date Patient Seen: 09/25/20 Chief complaint: allergic reaction Narrative: Written by Norma WU: Mr. 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 Unable to obtain a history from the patient as he is in an induced coma and intubated. Per the ED provider he, presented by EMS with a chief complaint of rapid onset of tongue or posterior pharynx swelling over the past 30 minutes or so. On arrival he is now having voice change and having difficulty controlling secretions. His prior to episodes were thought to be related to lisinopril and meloxicam. He was given epinephrine and steroids by EMS. He denied any new medications or other dietary change. He denied having fever, chills, or nausea or vomiting. He denied any chest pain and but complained of having shortness of breath. Patient was seen in the ED and immediately intubated after being administered ketamine and Rocuronium. The patient is afebrile with temperature of 97.7?, heart rate of 86, blood pressure 123/77, respirations 18, tidal volume of 450, 55% PEEP of 8. X-ray of the chest to confirm ET tube placement indicated Di ffuse patchy airspace opacity bilaterally. The patient was treated with methylprednisolone 125 mg, Benadryl 50 mg and Pepcid 20 mg at which the patient had a transient improvement and then began to decompensate again and received epinephrine 0.4 mg subcu and racemic epinephrine nebulizer. The plan was to treat the patient and discharge him to home however with relapse the patient will be admitted to ICU under the medicine service for acute angioedema which is previously required intubation. Patient does have an elevated white count of 15.4 however this is unknown whether the the steroid administered to the patient verses an active infection is the cause, he does have a left shift of 12,300 neutrophils, eosinophils are also elevated at 600, BUN is mildly elevated at 21, glucose 147, liver enzymes within normal limits, MRSA PCR is pending, complement C3 and C4 are pending, and COVId-19 PCR is negative. Discharge Providers Provider Date of admission: 09/25/20 18:55 Discharge Date: 09/27/20 Primary care physician: Anoop Sauceda MD Consults: 09/25/20 18:51 Consult to Dietitian, Adult Routine Comment: Reason For Exam: Patient on Ventilator and NPO 09/26/20 14:23 Consult to Respiratory Therapy Evaluate & Treat Comment: home bipap unavailable, please use hospital PAP HS Physician Instructions: Evaluate and treat Discharge provider: Nataly Hicks DO Summary Hospital Course Discharge Diagnosis: 1. Acute angioedema, status post intubation for airway protection and extubation, present on admission. Resolved. 2. Possible acute bacterial pneumonia, possibly aspiration, present on admission. Resolved. 3. Hypertension, chronic, present on admission. Stable. 4. Hyperlipidemia, chronic, present on admission. Stable. 5. GERD, chronic, present on admission. Stable. 6. MICHAELLE on CPAP, chronic, present on admission. Stable. 7. Depression, chronic, present on admission. Stable. 8. Attention deficit disorder, chronic, present on admission. Stable. 9. Chronic cluster migraine headaches, present on admission. Stable. 10. Morbid obesity, chronic, present on admission. Stable. Hospital Course: Hi Peck is a 70-year-old male with a past medical history significant for hypertension, hyperlipidemia, cluster migraine headaches, GERD, attention deficit disorder, anxiety, depression obstructive sleep on CPAP, chronic low back pain secondary to degenerative disc disease with resultant foot drop, treated hepatitis C, addictive personality with previous narcotic dependence in remission and several episodes of angioedema requiring intubation (09/2019 and 12/2019) who presented to the ED via EMS with rapid onset of tongue or posterior pharynx swelling over 30 minutes prior to arrival and was intubated in ED for airway protection. 1. Acute angioedema, status post intubation for airway protection and extub ation, present on admission. Resolved. -Etiology unclear but possibly due to late effect of prior SAW-inhibitor use versus C-1 esterase deficiency versus marijuana use versus allergic/environmental reaction. Patient has history of prior angioedema requiring intubation thought to be secondary to lisinopril, meloxicam and/or verapamil. The patient had been taking lisinpril for 15 years in which angioedema may occur days to years during treatment with saw-inhibitors and recurrences days to years after cessation of SAW-inhibitor is not uncommon. -Initial WBC 15.4 with eosinophils 600 and procalcitonin negative < 0.05. WBC trended up to 21 secondary to high dose glucocorticoids and procalcitonin remained negative. -Received methylprednisolone 125 mg IV x1 in ED. Continued methylprednisolone 60 mg every 12 hours and discontinued after extubation. Patient has glucocorticoid induced leukocytosis. -Continued home pantoprazole 40 mg daily. -C-3 and C-4 complement were sent and pending to be followed by PCP. If the patient is determined to have a C-1 esterace deficiency, he will need to be referred to a immunology for evaluation and treatment. -Continued respiratory therapy evaluation and treatment. Performed sedation vacation and pressure support trial which the patient passed with a good cuff leak and was successfully extubated. Patient's angioedema resolved and diet was slowly advanced to heart healthy which he tolerated well. 2. Possible acute bacterial pneumonia, possibly aspiration, present on admission. Resolved. -Patient with pink frothy sputum status post intubation with sputum culture grew heavy mixed residential joe. -Initial WBC 15.4 with eosinophils 600 and procalcitonin negative < 0.05. WBC trended up to 21 secondary to high dose glucocorticoids and procalcitonin remained negative. -Chest x-ray demonstrated bilateral patchy infiltrates suspicious for multifocal versus atypical pneumonia. -Received Zosyn 3.375 g IV x1 and ceftriaxone 2 g IV daily x 2 doses. Received azithromycin 500 mg x 2 doses and discharged with azithromycin 500 mg x 1 additional dose to complete antibiotic course to treat possible bacterial pneumonia. -Continued respiratory therapy evaluation and treatment as above. -Continued treatment of angioedema as above. 3. Hypertension, chronic, present on admission. Stable. -Continued home carvedilol 6.25 mg twice daily. 4. Hyperlipidemia, chronic, present on admission. Stable. -Continued home atorvastatin 20 mg daily. 5. GERD, chronic, present on admission. Stable. -Continued pantoprazole 40 mg daily. 6. MICHAELLE on CPAP, chronic, present on admission. Stable. -Continued CPAP per RT protocol once extubated. 7. Depression, chronic, present on admission. Stable. -Continued home bupropion 300 mg daily. 8. Attention deficit disorder, chronic, present on admission. Stable. -Patient is taking dexamphentermine-amphetamine ER 60 mg daily which was held until time of discharge. Patient's spouse reports nasal inhalation of stimulant medication and discussed inappropriate use of medication and possibility of oropharyngeal irritation provoking angioedema. The patient adamantly denies recent nasal inhalation. 9. Chronic cluster migraine headaches, present on admission. Stable. -Patient reports that he smokes marijuana for migraine headaches as this is the only effective treatment in the past. He reports he has been to several neurologists and headache clinics with no therapeutic relief and has tried everything. Patient has not tried Botox injections and recommended consideration of trial of Botox. 10. Morbid obesity, chronic, present on admission. Stable. -BMI 36.5. -Counseled patient on lifestyle modification including: diet and exercise. Exam Vital Signs (past 8 hours): - 09/27/20 03:18 09/27/20 08:30 Temperature 97.6 F 97.7 F Pulse Rate 74 57 L Respiratory Rate 18 18 Blood Pressure 125/59 L 160/75 H Pulse Oximetry 98 Fraction of Inspired Oxygen 40 Oxygen Delivery Method Room Air Oxygen Flow Rate 0 Narrative Exam Narrative: General: Older male sitting in bed and in no acute distress, well-developed, well-nourished, appropriately interactive. HEENT: Normocephalic, atraumatic. External ears without defect. Pupils equal, round, and reactive to light. Anicteric sclerae, moist conjunctivae, and no lid lag. Oropharynx free of erythema and cobble stoning with moist mucosa. Neck: Supple with full range of motion. No edema, lymphadenopathy or thyromegaly. Cardiovascular: Regular rate and rhythm without murmurs, rubs, or gallops appreciated Pulmonary: Clear to auscultation bilaterally without crackles, wheezes, or rhonchi. Normal respiratory effort with no use of accessory muscles. Abdomen: Soft, obese, bowel sounds present, nontender, nondistended. Extremities: No clubbing, cyanosis, or edema. Skin: Normal temperature, turgor, and texture; no rash, ulcers, or subcutaneous nodules appreciated. Neurological: Cranial nerves grossly intact. Psychiatric: Normal mood and affect. Alert and oriented to person, place, and time. Objective Labs Result Diagrams: 09/27/20 04:52 09/27/20 04:52 Labs: Laboratory Results - last 24 hr 09/25/20 09/25/20 09/27/20 04:58 20:16 04:52 WBC 21.4 H D RBC 4.88 Hgb 14.6 Hct 42.8 MCV 87.7 MCH 29.9 MCHC 34.1 RDW 14.4 Plt Count 280 Neut % (Auto) 89.3 H Lymph % (Auto) 5.4 L [place] % (Auto) 5.2 Eos % (Auto) 0.0 L Baso % (Auto) 0.1 Neut # (Auto) 77199 H Lymph # (Auto) 1100 [place] # (Auto) 1100 H Eos # (Auto) 0 Baso # (Auto) 0 Sodium Potassium Chloride Carbon Dioxide BUN Creatinine Estimated GFR BUN/Creatinine Ratio Glucose Calcium Magnesium Total Bilirubin AST ALT Alkaline Phosphatase Total Protein Albumin Globulin Albumin/Globulin Ratio Procalcitonin < 0.05 Complement C3 157 Complement C4 29 09/27/20 09/27/20 04:52 04:52 WBC RBC Hgb Hct MCV MCH MCHC RDW Plt Count Neut % (Auto) Lymph % (Auto) [place] % (Auto) Eos % (Auto) Baso % (Auto) Neut # (Auto) Lymph # (Auto) [place] # (Auto) Eos # (Auto) Baso # (Auto) Sodium 139 Potassium 4.0 Chloride 107 Carbon Dioxide 25 BUN 16 Creatinine 0.99 Estimated GFR > 60.0 BUN/Creatinine Ratio 16.2 Glucose 134 H Calcium 9.0 Magnesium 2.1 Total Bilirubin 0.4 AST 21 ALT 20 Alkaline Phosphatase 62 Total Protein 7.4 Albumin 4.1 Globulin 3.3 Albumin/Globulin Ratio 1.2 Procalcitonin < 0.05 Complement C3 Complement C4 PFSH Medical History Angioedema Cluster headaches Footdrop Headache, migraine Hepatitis C History of alcohol abuse History of narcotic addiction Hyperlipidemia Hypertension Sleep apnea, organic Torticollis, acute Surgical History History of bilateral inguinal hernia repair History of fusion of cervical spine History of laminectomy History of nasal septoplasty Family History Father Hyperlipidemia Hypertension Cardiac disease Depression Mother Cardiac disease Depression Social History household members: spouse Smoking Status: Former smoker alcohol intake: former Discharge Plan Discharge Plan Patient Disposition: Home Provider Discharge Comment: You are being discharged home. You had angioedema or swelling of your airway that required intubation. You were treated with IV steroids. It is unclear what provoked your angioedema or swelling of your airway but could be a late effect of lisinopril versus an imune deficiency versus marijuana us provoking reactive airway versus food or environmental allergy. Please stop using marijuana indefinitely. You may want to consider Botox injections for resistant migraine headaches. You have also been treated for possible pneumonia and prescribed azithromycin 500 mg for 1 additional dose to take tomorrow to complete antibiotic course. Please follow-up with your primary care physician, Dr. Sauceda, regarding your hospitalization and further workup of angioedema. Discharge orders & Medications Prescriptions: New azithromycin 250 mg tablet See Rx Instructions .ROUTE .COMPLEX Qty: 2 RF: 0 Continued tramadol 50 mg tablet 50 - 100 mg PO Q6H PRN (Reason: pain) RF: 0 dextroamphetamine-amphetamine [Adderall XR] 30 mg capsule,extended release 24h r 60 mg PO QAM Qty: 60 RF: 0 bupropion HCl 300 mg tablet extended release 24 hr 300 mg PO QAM Qty: 90 RF: 1 atorvastatin 20 mg tablet 20 mg PO DAILY RF: 0 pantoprazole 40 mg tablet,delayed release (DR/EC) 40 mg PO DAILY RF: 0 (DME) Respironics Dreamstation CPAP Qty: 1 RF: 0 carvedilol 6.25 mg tablet 6.25 mg PO BID RF: 0 Follow up/Referrals: Anoop Sauceda MD [Primary Care Provider] - 3-5 Days Diet/Activity/Treatments Diet: Low-fat, Low-sodium and Low-cholesterol Activity: Activity as tolerated Visit Report/Discharge Packet Instructions: The Mediterranean Diet and Good Health, DI for Angioedema, DI for Respiratory Failure, Azithromycin Discharge Data Primary Care Provider: Anoop Sauceda V Quality VTE Deep Vein Thrombosis/Pulmonary Embolism Present on Admission: No
--- NOTE | 2020-09-27 10:52 | PC.NURSE ---
Addendum entered by Moustapha Mcfarland R.N. 09/27/20 12:22: Reviewed dc packet and educational materials with pt. Provided education re: dx, need for f/u, diet, activity, medications, when to seek emergency medical treatment. Pt verbalizes understanding of teaching and states he has no questions at this time. Removed PIV with cath tips intact. 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 Pt gathered all belongings and dressed himself independently. He transferred to / and was escorted to private vehicle in no distress at 1215. Original Note: Pt continues with chronic headache. His gait is steady walking to BR without AD. He denies shortness of breath. He denies dysphagia. He is requesting may. He has an occasional intermittent cough without sputum production. His lungs are completely CTAB. He is swallowing his pills whole without difficulty. Plan is for dc today to home. Pt agreeable to plan.
--- NOTE | 2020-09-27 11:21 | CM.DPC ---
DCP/continued: Received notification from provider that patient medically stable for discharge home today. Met briefly with to have BRANDIE signed. Patient alert, oriented, and ambulating I in room. No d/c planning needs identified. P: Home today. JV Valverde
== END 2020-09-27 12:15 | disposition home or self-care (01) | DRG 915 ==
LOC: ED 18:42 → ICU 18:58 → AC 19:20 → ICU 09-26 09:39
PROVIDERS: Internal Medicine; Nurse Practitioner Family; Admitting Provider Internal Medicine; Emergency Provider Emergency Medicine; PCP Internal Medicine; Referring Provider Emergency Medicine; Visit Provider Internal Medicine
DX: T78.3XXA Angioneurotic edema, initial encounter (principal); J15.9 Unspecified bacterial pneumonia; J69.0 Pneumonitis due to inhalation of food and vomit; G47.33 Obstructive sleep apnea (adult) (pediatric); E66.9 Obesity, unspecified; Z68.36 Body mass index [BMI] 36.0-36.9, adult; I10 Essential (primary) hypertension; E78.5 Hyperlipidemia, unspecified; K21.9 Gastro-esophageal reflux disease without esophagitis; F98.8 Other specified behavioral and emotional disorders with onset usually occurring in childhood and adolescence; F41.9 Anxiety disorder, unspecified; G44.029 Chronic cluster headache, not intractable; E66.01 Morbid (severe) obesity due to excess calories; F32.9 Major depressive disorder, single episode, unspecified; Z87.891 Personal history of nicotine dependence; Z11.59 Encounter for screening for other viral diseases
CPT/HCPCS: 36415; 36600; 71045; 80053; 82805; 82962; 83605; 83735; 84145; 85025; 86160; 87070; 87205; 87635; 87797; 94002; 94003; 94660; 94770; 94799; 99283; 99285; 99291; 99292; C9113; J0696; J1650; J2543; J2704; J2930; J3010

== ENCOUNTER → 2021-06-14 11:05 | Outpatient (CLI) | payer MEDICARE, OTHER, SELFPAY ==
[2020-09-25 20:55] VITALS: BMI 36.4
[2020-09-26 12:10] VITALS: PULSE 83; RESP 20; O2SAT 97
[2021-06-14 12:55] LABS: Add Manual Diff / Slide Review NO; Basophils Absolute Auto 100 /uL (0-100); Eosinophils Absolute Auto 600 /uL (0-450); Eosinophils Percent Auto 6.4 % (2-4); Hematocrit 43.4 % (41-53); Hemoglobin 14.8 g/dL (13.5-17.5); Lymphocytes Absolute Auto 2000 /uL (1100-4500); Lymphocytes Percent Auto 20.2 % (25-40); Mean Corpuscular HGB Conc 34.1 % (30-36); Monocytes Absolute Auto 900 /uL (0-900); Monocytes Percent Auto 9.1 % (3-14); Neutrophils Absolute Auto 6300 /uL (1500-7000); Neutrophils Percent Auto 63.3 % (50-75); Platelet Count 258 X10^3/uL (150-400); Red Blood Cell Count 5.11 X10^6/uL (4.5-5.9); Red Cell Distribution Width 14.9 % (11.6-14.8)
[2021-06-14 13:20] LABS: Estimated Glomerular Filt Rate > 60.0 mL/min (>60)
== END ==
PROVIDERS: PCP Internal Medicine; Referring Provider Internal Medicine; Visit Provider Internal Medicine
DX: R10.32 Left lower quadrant pain (principal)
CPT/HCPCS: 36415; 82565; 85025

== ENCOUNTER → 2021-06-14 11:52 | Outpatient (CLI) | payer MEDICARE, OTHER, SELFPAY ==
[2020-09-25 20:55] VITALS: BMI 36.4
[2020-09-26 12:10] VITALS: PULSE 83; RESP 20; O2SAT 97
--- NOTE | 2021-06-14 | DI.CT.S_ITS ---
PROCEDURE: CT ABDOMEN PELVIS W CON INDICATIONS: Left lower quadrant pain TECHNIQUE: After the administration of oral and IV contrast, axial sections were acquired from the lung bases to the pubic symphysis. Coronal and sagittal reformats were performed. For radiation dose reduction, the following was used: automated exposure control, adjustment of mA and/or kV according to patient size. COMPARISON: None. FINDINGS: Lower thorax: The lung bases are clear. Heart size normal. No hiatal hernia. Liver: The liver is diffusely decreased in attenuation without focal mass lesion. Biliary system: No calcified cholelithiasis or pericholecystic inflammation. No intra or extrahepatic bile duct dilatation. Pancreas: Unremarkable without mass or inflammation evident. Spleen: Normal in size and density. Adrenals: Normal morphology and density. Reproductive system: Unremarkable as visualized. Urinary system: Normal renal size and attenuation. No renal calculi, hydronephrosis, or solid mass present. Urinary bladder unremarkable. Gastrointestinal system: Moderate fecal debris noted in the colon. Several diverticuli noted in the proximal sigmoid colon without evidence of acute diverticulitis. Appendix: Normal appendix identified. No evidence of appendicitis. Peritoneal spaces: No mesenteric or retroperitoneal adenopathy. No free air. No free fluid. Vasculature: Aortic atherosclerotic vascular calcification noted without evidence of aneurysm. Musculoskeletal: Normal bone mineralization. No acute fractures. Abdominal wall intact without evidence of ventral or inguinal hernias. Incidental multilevel vertebral body body hemangiomas noted. Degenerative disc disease and arthropathy at L4-5 results in moderate bilateral foraminal stenosis. IMPRESSION: 1. Sigmoid diverticulosis without evidence of diverticulitis. Moderate upstream fecal retention noted in the transverse colon. No obstruction. 2. Incidental hepatic fatty infiltration, aortic atherosclerosis, vertebral body hemangiomas Approved by: Armando Chapman M.D. on 06/14/2021 at 13:14
== END ==
PROVIDERS: PCP Internal Medicine; Referring Provider Internal Medicine; Visit Provider Internal Medicine
DX: R10.32 Left lower quadrant pain (principal); K57.30 Diverticulosis of large intestine without perforation or abscess without bleeding; K76.0 Fatty (change of) liver, not elsewhere classified; I70.0 Atherosclerosis of aorta; D18.09 Hemangioma of other sites
CPT/HCPCS: 36415; 74177; 82565; 85025

== ENCOUNTER → 2022-02-08 12:41 | Outpatient (CLI) | payer MEDICARE, OTHER, SELFPAY ==
[2020-09-25 20:55] VITALS: BMI 36.4
[2020-09-26 12:10] VITALS: PULSE 83; RESP 20; O2SAT 97
[2022-02-08 13:09] LABS: Add Manual Diff / Slide Review NO; Basophils Absolute Auto 100 /uL (0-100); Eosinophils Absolute Auto 400 /uL (0-450); Eosinophils Percent Auto 5.1 % (2-4); Hematocrit 43.1 % (41-53); Hemoglobin 14.5 g/dL (13.5-17.5); Lymphocytes Absolute Auto 1900 /uL (1100-4500); Lymphocytes Percent Auto 24.1 % (25-40); Mean Corpuscular HGB Conc 33.7 % (30-36); Mean Corpuscular Hemoglobin 27.9 PG (26-34); Mean Corpuscular Volume 82.9 fL (80-100); Monocytes Absolute Auto 800 /uL (0-900); Monocytes Percent Auto 10.1 % (3-14); Neutrophils Absolute Auto 4700 /uL (1500-7000); Neutrophils Percent Auto 59.7 % (50-75); Platelet Count 294 X10^3/uL (150-400); White Blood Cell Count 7.9 X10^3/uL (4.5-11.0)
[2022-02-08 13:58] LABS: Alanine Aminotransferase 38 IU/L (<50); Albumin 4.6 g/dL (3.5-5.0); Albumin Globulin Ratio 1.5 (1.0-2.8); Alkaline Phosphatase 67 U/L (38-126); Aspartate Aminotransferase 40 IU/L (17-59); BUN Creatinine Ratio 13.6 (6-22); Bilirubin Total 0.5 mg/dL (0.2-1.3); Blood Urea Nitrogen 16 mg/dL (9-20); Carbon Dioxide 24 mmol/L (22-32); Chloride 104 mmol/L (98-107); Estimated Glomerular Filt Rate > 60.0 mL/min (>60); Globulin 3.1 g/dL (1.7-4.1); Glucose 150 mg/dL (80-110); HEMOLYSIS < 15 (0-50); Potassium 4.2 mmol/L (3.4-5.1); Sodium 137 mmol/L (137-145); Total Protein 7.7 g/dL (6.3-8.2)
[2022-02-08 14:07] LABS: Free T4, Direct Thyroxine 1.13 ng/dL (0.78-2.19)
[2022-02-08 14:21] LABS: Thyroid Stimulating Hormone 3.24 uIU/mL (0.47-4.68)
[2022-02-10 11:14] LABS: Lamotrigine Lamictal 3.9 ug/mL (2.0-20.0)
== END ==
PROVIDERS: PCP Internal Medicine; Referring Provider Psychiatry & Neurology Psychiatry; Visit Provider Psychiatry & Neurology Psychiatry
DX: F33.1 Major depressive disorder, recurrent, moderate (principal)
CPT/HCPCS: 36415; 80053; 80175; 84439; 84443; 85025

== ENCOUNTER 2022-04-10 22:40 | Emergency (ER) | payer MEDICARE, OTHER, SELFPAY ==
[2020-09-25 20:55] VITALS: BMI 36.4
[2020-09-26 12:10] VITALS: PULSE 83; RESP 20; O2SAT 97
[2022-04-10 22:45] VITALS: TEMP 36.2
[2022-04-10 22:48] VITALS: BP 157/80; PULSE 73; RESP 18; O2SAT 97; BMI 38.0
--- NOTE | 2022-04-10 22:48 | ED_ITS ---
HPI - General Adult General Chief complaint: Allergic Reaction Stated complaint: Angio Edema Time Seen by Provider: 04/10/22 22:47 History of Present Illness HPI narrative: 71-year-old gentleman with a history of recurrent episodes of angioedema, hypertension, hyperlipidemia chronic headaches since the age of 11, reflux, ADD, anxiety, depression, sleep apnea who presents with swelling to the posterior pharynx and tongue concerning for angioedema. Initial symptoms began in the end of 2018. Was felt to be secondary to lisinopril and meloxicam. Over that year he was actually hospitalized and intubated 3 times with concerns for angioedema. He eventually was evaluated further and diagnosed with hereditary angioedema and was given a prescription for Icatabant (injectable medication that selectively antagonizes bradykinin B2 receptor specifically for hereditary angioedema). When he noted the sensation of swelling in the posterior pharynx he gave himself an injection, this is the 1st time he has used this medication. Instructions for the medication are to inject and come to the emergency department for further evaluation. Arrival in the emergency department he does have some mild hoarseness and it sounds like the posterior portion of his tongue and uvula are somewhat swollen however his airway is not compromised he has no lip swelling there is no wheezing and no other immediate allergic reactions at this time. Review of systems he does note that he has a significant headache. He also notes that he has had chronic headaches since the age of 11 and over the last month is has essentially been having daily headaches. Review of notes suggests he has episodes of cluster headaches. He reports no recent fever, cough, palpitations, chest pain, vomiting, diarrhea, abdominal pain. Related Data Home Medications Medication Instructions Recorded Confirmed atorvastatin 20 mg tablet 20 mg PO DAILY 10/18/18 01/05/22 pantoprazole 40 mg tablet,delayed 40 mg PO DAILY 10/18/18 01/05/22 release Respironics Dreamstation CPAP #1 ea 06/13/19 01/05/22 carvedilol 6.25 mg tablet 6.25 mg PO BID 01/06/20 01/05/22 icatibant 30 mg/3 mL subcutaneous 30 mg SUBCUT Q6-8H PRN 09/25/21 01/05/22 syringe hydroxyzine pamoate 25 mg capsule 25 mg PO .prn 12/06/21 01/05/22 ropinirole 5 mg tablet 12 mg PO DAILY 12/06/21 01/05/22 Previous Rx's Medication Instructions Recorded lamotrigine 100 mg tablet 250 mg PO DAILY #180 tabs 12/07/21 aripiprazole 5 mg tablet 5 mg PO BEDTIME #30 tabs 03/07/22 bupropion HCl 300 mg 24 hr tablet, 300 mg PO QAM #90 tabs 03/07/22 extended release dextroamphetamine-amphetamine ER 60 mg PO QAM #60 caps 03/07/22 30 mg 24hr capsule,extend release dextroamphetamine-amphetamine ER 60 mg PO QAM #60 caps 03/07/22 30 mg 24hr capsule,extend release dextroamphetamine-amphetamine ER 60 mg PO QAM #60 caps 03/07/22 30 mg 24hr capsule,extend release (Adderall XR) Allergies Allergy/AdvReac Type Severity Reaction Status Date / Time lisinopril Allergy Severe angiodema Verified 01/05/22 14:31 meloxicam Allergy Severe angiodema Verified 01/05/22 14:31 ketamine AdvReac Severe Hallucinati Verified 01/05/22 14:31 ng NSAIDS (Non-Steroidal AdvReac Intermediate Liver Verified 01/05/22 14:31 Anti-Inflamma issues Review of Systems Review of Systems Narrative: Remainder of complete review of systems is otherwise unremarkable except for that included in the HPI. Patient History Medical History (Updated 04/11/22 @ 04:20 by Nancy Jaimes MD) Angioedema Cluster headaches Footdrop Headache, migraine Hepatitis C History of alcohol abuse History of narcotic addiction Hyperlipidemia Hypertension Obstructive sleep apnea syndrome Sleep apnea, organic Snoring Torticollis, acute Surgical History History of bilateral inguinal hernia repair History of fusion of cervical spine History of laminectomy History of nasal septoplasty Family History Father Hyperlipidemia Hypertension Cardiac disease Depression Mother Cardiac disease Depression Social History household members: spouse Smoking Status: Former smoker alcohol intake: former substance use type: former substance user Smoking Status: Former smoker Substance Use Type: prescription drug Exam Initial Vital Signs Initial Vital Signs: Vital Signs Temperature 97.1 F L 04/10/22 22:45 General: Healthy appearing, in no acute distress. Able to give a complete and coherent history. Well-nourished well-developed HEENT: Voice is somewhat hoarse with suggestion of posterior pharyngeal edema, Moist mucous membranes, normal sclera with reactive pupils, no visible swelling to the anterior portion of the tongue or lips. Neck: No JVD, supple, no cervical adenopathy. Respiratory: Lungs are clear to auscultation, no wheezing no rales no rhonchi. Full and symmetrical air movement Cardiac: Regular rate and rhythm no murmurs no bruits Abdomen: Obese, Soft, nontender, good bowel tones, no flank pain Skin: Warm and dry, no rashes Neurologic: Grossly neurologically intact with no obvious asymmetries or abnormalities Extremities: No trauma, well perfused Psych: Cooperative, appropriate insight and affect Course Orders Ordered: ED Orders 04/10/22 23:30 COVID19 -Nasal RAPID/Pre-Proc Stat Discontinued Medications Diphenhydramine HCl (Diphenhydramine 50 Mg/Ml Vial) 25 mg IV NOW ONE Stop: 04/10/22 23:01 Last Admin: 04/10/22 23:12 Dose: 25 mg Documented By: DEMETRICE Methylprednisolone (Methylprednisolone 125 Mg/2 Ml Vial) 125 mg IV NOW ONE Stop: 04/10/22 23:01 Last Admin: 04/10/22 23:15 Dose: 125 mg Documented By: DEMETRICE Metoclopramide HCl (Metoclopramide 10 Mg/2 Ml Inj) 10 mg IV NOW ONE Stop: 04/10/22 23:01 Last Admin: 04/10/22 23:14 Dose: 10 mg Documented By: DEMETRICE Vital Signs Vital signs: Vital Signs - 8 hr 04/10/22 22:48 04/10/22 22:45 04/10/22 23:24 Temperature 97.1 F L Pulse Rate 73 70 Respiratory Rate 18 30 H Blood Pressure 157/80 H Pulse Oximetry 97 98 Oxygen Delivery Method Room Air 04/10/22 23:30 04/11/22 00:00 04/11/22 00:30 Temperature Pulse Rate 70 66 66 Respiratory Rate 21 21 29 H Blood Pressure Pulse Oximetry 96 98 98 Oxygen Delivery Method 04/11/22 01:00 04/11/22 01:30 04/11/22 04:12 Temperature Pulse Rate 67 65 Respiratory Rate 30 H 25 H Blood Pressure Pulse Oximetry 97 97 96 Oxygen Delivery Method 04/11/22 04:14 04/11/22 04:14 04/11/22 04:30 Temperature Pulse Rate 84 Respiratory Rate Blood Pressure 141/64 H 141/65 H Pulse Oximetry 97 Oxygen Delivery Method 04/11/22 04:30 Temperature Pulse Rate 84 Respiratory Rate Blood Pressure Pulse Oximetry 98 Oxygen Delivery Method Medical Decision Making Lab Data Labs: Lab Results 04/10/22 Range/Units 23:30 SARS-CoV-2 (PCR) Negative (Negative) MDM Narrative Medical decision making narrative: 71-year-old gentleman with a history of hereditary angioedema recurrent episode 1st time in approximately 3 years. He tried the injectable dose of icatibant and it does seem to be working with symptoms resolving. Because of his recurrent migraine headaches he is given a L of fluid, Reglan, Benadryl and Solu-Medrol. He is also placed on 100% oxygen to see if this might influence the cluster headache possibility. The headache continues however the posterior pharyngeal edema is improving nicely. He is observed in the emergency depa rtment for a total of 12 hours until his is able to pick him up. At this point he is safe for home discharge and will ask him to follow-up with his provider who made the presumptive diagnosis of hereditary angioedema Discharge Plan Departure Patient Disposition: Home Clinical Impression: Angioedema Instructions: DI for Angioedema Activity Restrictions/Additional Instructions: Thank you for coming in this evening It does appear that the Icatibant has been successful in treating this episode of angioedema. Would suggest that you schedule a follow-up appointment with the doctor who help to sort out the definitive diagnosis and wrote the prescription for this medication. Regarding your daily headaches over the last month, we did try oxygen, fluids, Reglan, Benadryl and Solu-Medrol but unfortunately were unsuccessful in alleviating the majority of her symptoms. I would encourage you to follow-up with your primary care and neurologist provider regarding the continued headaches At this time, the swelling at the back of your throat has gone down significantly in continues to improve and I believe your safe for discharge home. If you have recurrent symptoms please return to the emergency department Prescriptions: No Action icatibant 30 mg/3 mL syringe 30 mg SUBCUT Q6-8H PRN ropinirole 5 mg tablet 12 mg PO DAILY atorvastatin 20 mg tablet 20 mg PO DAILY pantoprazole 40 mg tablet,delayed release (DR/EC) 40 mg PO DAILY lamotrigine 100 mg tablet 250 mg PO DAILY Qty: 180 3RF dextroamphetamine-amphetamine 30 mg capsule,extended release 24hr 60 mg PO QAM Qty: 60 0RF dextroamphetamine-amphetamine [Adderall XR] 30 mg capsule,extended release 24hr 60 mg PO QAM Qty: 60 0RF dextroamphetamine-amphetamine 30 mg capsule,extended release 24hr 60 mg PO QAM Qty: 60 0RF bupropion HCl 300 mg tablet extended release 24 hr 300 mg PO QAM Qty: 90 3RF aripiprazole 5 mg tablet 5 mg PO BEDTIME Qty: 30 3RF (DME) Respironics Dreamstation CPAP Qty: 1 Dose Instruction: As directed Label Comments: Pressure: 6-20 cmH2O DME: Rx Instructions: As directed carvedilol 6.25 mg tablet 6.25 mg PO BID hydroxyzine pamoate 25 mg capsule 25 mg PO .prn Referrals: Andry Nugent MD [Primary Care Provider] -
[2022-04-10] MEDS: diphenhydrAMINE 50 MG/ML VIAL 25 MG IV (23:12)
[2022-04-10] MEDS: METOCLOPRAMIDE 10 MG/2 ML INJ IV (23:14)
[2022-04-10] MEDS: methylPREDNISolone 125 MG/2 ML VIAL IV (23:15)
[2022-04-10 23:24] VITALS: PULSE 70; RESP 30; O2SAT 98
[2022-04-10 23:30] VITALS: PULSE 70; RESP 21; O2SAT 96
[2022-04-11] VITALS (9 sets, daily range): BP systolic 141–152; BP diastolic 64–75; PULSE 65–89; RESP 21–30; O2SAT 95–98
[2022-04-11 00:13] LABS: COVID19 -Nasal RAPID Negative (Negative)
--- NOTE | 2022-04-11 01:30 | PC.NURSE ---
pt state it is starting to fell like the swelling is going down
--- NOTE | 2022-04-11 06:13 | PC.NURSE ---
pt continues to take monitor off to walk around the room and to the bathroom
== END 2022-04-11 06:43 | disposition home or self-care (01) ==
PROVIDERS: Emergency Provider Emergency Medicine; PCP Internal Medicine
DX: T78.3XXA Angioneurotic edema, initial encounter (principal); Z20.822 Contact with and (suspected) exposure to COVID-19
CPT/HCPCS: 36415; 87635; 96374; 96375; 99284; C9803; J1200; J2765; J2930

== ENCOUNTER → 2022-05-11 15:14 | Outpatient (ROUT) | payer MEDICARE, OTHER, SELFPAY ==
[2020-09-25 20:55] VITALS: BMI 36.4
[2020-09-26 12:10] VITALS: PULSE 83; RESP 20; O2SAT 97
== END ==
PROVIDERS: PCP Internal Medicine
DX: K90.9 Intestinal malabsorption, unspecified (principal)
CPT/HCPCS: 82710

== ENCOUNTER → 2023-05-18 14:53 | Outpatient (CLI) | payer MEDICARE, OTHER, SELFPAY ==
[2020-09-25 20:55] VITALS: BMI 36.4
[2020-09-26 12:10] VITALS: PULSE 83; RESP 20; O2SAT 97
[2023-05-18 16:21] LABS: Hematocrit 42.1 % (41-53); Hemoglobin 14.6 g/dL (13.5-17.5); Mean Corpuscular HGB Conc 34.7 % (30-36); Mean Corpuscular Hemoglobin 29.7 PG (26-34); Mean Corpuscular Volume 85.7 fL (80-100); Platelet Count 285 X10^3/uL (150-400); Red Blood Cell Count 4.91 X10^6/uL (4.5-5.9); Red Cell Distribution Width 14.7 % (11.6-14.8); White Blood Cell Count 9.8 X10^3/uL (4.5-11.0)
[2023-05-18 16:32] LABS: Alanine Aminotransferase 29 IU/L (<50); Albumin 4.4 g/dL (3.5-5.0); Albumin Globulin Ratio 1.5 (1.0-2.8); Alkaline Phosphatase 72 U/L (38-126); Aspartate Aminotransferase 26 IU/L (17-59); BUN Creatinine Ratio 15.2 (6-22); Bilirubin Total 0.5 mg/dL (0.2-1.3); Blood Urea Nitrogen 17 mg/dL (9-20); Calcium 9.4 mg/dL (8.4-10.2); Carbon Dioxide 23 mmol/L (22-32); Chloride 103 mmol/L (98-107); Cholesterol 164 mg/dL (140-199); Estimated Glomerular Filt Rate > 60 mL/min (>60); Glucose 115 mg/dL (80-110); HDL Cholesterol 37 mg/dL (40-60); HEMOLYSIS < 15 (0-50); LDL Cholesterol Calculated 84 mg/dL (<100); Potassium 4.5 mmol/L (3.4-5.1); Sodium 136 mmol/L (137-145); Total Protein 7.4 g/dL (6.3-8.2); Triglycerides 217 mg/dL (35-150)
[2023-05-18 16:58] LABS: TSH w/ Reflex to FT4 2.67 uIU/mL (0.47-4.68)
[2023-05-18 17:03] LABS: Prostate Specific Antigen 0.639 ng/mL (0.10-4.00)
== END ==
PROVIDERS: PCP Internal Medicine; Referring Provider Internal Medicine; Visit Provider Internal Medicine
DX: E78.2 Mixed hyperlipidemia (principal); N40.1 Benign prostatic hyperplasia with lower urinary tract symptoms; I10 Essential (primary) hypertension; N13.8 Other obstructive and reflux uropathy
CPT/HCPCS: 36415; 80053; 80061; 84153; 84443; 85027

== ENCOUNTER 2023-12-07 14:27 | Observation (INO) | payer MEDICARE, OTHER, SELFPAY ==
[2020-09-25 20:55] VITALS: BMI 36.4
[2020-09-26 12:10] VITALS: PULSE 83; RESP 20; O2SAT 97
[2023-12-07] VITALS (9 sets, daily range): BP systolic 136–184; BP diastolic 68–92; PULSE 60–67; RESP 16–29; TEMP 36.1–36.2; O2SAT 94–98; BMI 39.5
--- NOTE | 2023-12-07 14:55 | PC.NURSE ---
Pt came to the emergency dept with multiple complaints and states that he was sent to by his pcp for further eval of mostly his left shoulder pain. Pt reports having cervical fusion many years ago and now pt does not have full ROM in neck. Pt states that his pain now radiates from his neck to his shoulders. Rates pain as 7/10 and sharp/tingling. Pt a&ox4.
--- NOTE | 2023-12-07 14:57 | ED_ITS ---
HPI - Chest Pain General Chief Complaint: Chest Pain Stated Complaint: [place] ref/ cardiac workup Time Seen by Provider: 12/07/23 14:48 Source: patient Mode of arrival: Ambulatory Limitations: no limitations History of Present Illness HPI narrative: Patient here for evolving chest pain for the past 1 week now has left neck left arm pain. Currently symptom free. Patient takes 1000 mg of aspirin daily for cluster headaches. He already took aspirin today. Primary care Dr. Sauceda sent patient here for evaluation. Patient states has been at least 10 years since stress test. Father has history of cardiac disease. Patient has been tired fatigue short of breath. Denies any recent illness. No blood clots in legs or lungs.. Patient states his left neck and arm discomfort is different from his typical cervical fusion. He was having chest pain last week but that has improved this week but now has evolved into the left neck and arm Related Data Home Medications Medication Instructions Recorded Confirmed Respironics Dreamstation CPAP #1 ea 06/13/19 12/13/23 icatibant 30 mg/3 mL subcutaneous 30 mg SUBCUT Q6-8H PRN Angioedema 09/25/21 12/13/23 syringe Previous Rx's Medication Instructions Recorded aripiprazole 5 mg tablet 5 mg PO BEDTIME #90 tabs 02/15/23 bupropion HCl 300 mg 24 hr tablet, 300 mg PO QAM #90 tabs 02/15/23 extended release hydroxyzine pamoate 25 mg capsule 25 mg PO BEDTIME sleep #90 caps 02/15/23 lamotrigine 200 mg tablet 400 mg (2 x 200 mg) PO DAILY #180 02/15/23 tabs atorvastatin 20 mg tablet 20 mg PO DAILY #90 tabs 04/20/23 carvedilol 6.25 mg tablet 6.25 mg PO BID #180 tabs 04/20/23 ropinirole 5 mg tablet 10 mg (2 x 5 mg) PO BEDTIME #180 04/20/23 tabs pantoprazole 40 mg tablet,delayed 40 mg PO DAILY #90 tabs 07/05/23 release prednisone 10 mg tablet See Rx Instructions .Route 10/09/23 .COMPLEX #20 tabs hydrocodone 5 mg-acetaminophen 325 1 tab PO BID PRN pain #10 tabs 10/26/23 mg tablet dextroamphetamine-amphetamine ER 60 mg (2 x 30 mg) PO QAM #60 caps 12/08/23 30 mg 24hr capsule,extend release amlodipine 2.5 mg tablet 2.5 mg PO DAILY esophageal spasm 12/13/23 prevention #90 tabs nitroglycerin 0.4 mg sublingual 0.4 mg sublingual Q5M PRN 12/13/23 tablet esophageal spasm #25 tabs Allergies Allergy/AdvReac Type Severity Reaction Status Date / Time lisinopril Allergy Severe angiodema Verified 12/13/23 07:57 meloxicam Allergy Severe angiodema Verified 12/13/23 07:57 ketamine AdvReac Severe Hallucinati Verified 12/13/23 07:57 ng NSAIDS (Non-Steroidal AdvReac Intermediate Liver Verified 12/13/23 07:57 Anti-Inflamma issues Review of Systems Review of Systems Narrative: GENERAL: negative chills, pause fatigue, malaise, negative fever, sweats. HEENT: negative sinus pain, ear pain, sore throat RESPIRATORY: negative dyspnea, cough CARDIOVASCULAR: Fast chest pain, negative palpitations GASTROINTESTINAL: negative nausea, vomiting, abdominal pain : negative dysuria, frequency, hematuria MUSCULOSKELETAL: negative muscle or bony pain SKIN: negative rash, skin lesions NEUROLOGIC: negative weakness, numbness ROS Unobtainable: All systems reviewed & are unremarkable except as noted in HPI and below Patient History Medical History (Updated 12/13/23 @ 12:05 by Anoop Sauceda MD) GERD without esophagitis RLS (restless legs syndrome) History of hepatitis C Obesity (BMI 30-39.9) DJD (degenerative joint disease), cervical Hereditary angioedema BPH w urinary obs/LUTS Chronic low back pain Primary osteoarthritis involving multiple joints Mixed hyperlipidemia Essential hypertension Obstructive sleep apnea syndrome History of alcohol abuse Footdrop Hyperlipidemia Angioedema Cluster headaches Headache, migraine Torticollis, acute Surgical History History of nasal septoplasty History of laminectomy History of fusion of cervical spine History of bilateral inguinal hernia repair Family History Father Hyperlipidemia Hypertension Cardiac disease Depression Mother Cardiac disease Depression Social History household members: spouse Smoking Status: Former smoker alcohol intake: former substance use type: former substance user Smoking Status: Former smoker alcohol intake frequency: 0-2 drinks per day Substance Use Type: marijuana and prescription drug Exam Narrative Exam Narrative: GENERAL: in no distress, not toxic not dyspneic HEAD: Normocephalic. EYES: Pupils equal round ENT: Mucous membranes moist. NECK: Trachea midline. CARDIOVASCULAR: Regular rate and rhythm RESPIRATORY: Clear to auscultation. Breath sounds equal bilaterally. No wheezes, rales, or rhonchi. GASTROINTESTINAL: Abdomen soft, non-tender EXTREMITIES: No gross deformities. BACK: No flank tenderness. NEURO: AOx4. Clear speech SKIN: Warm and dry PSYCH: Not anxious, is cooperative Initial Vital Signs Initial Vital Signs: Vital Signs Temperature 97.2 F L 12/07/23 14:37 Pulse Rate 63 12/07/23 14:37 Respiratory Rate 18 12/07/23 14:37 Blood Pressure 184/92 H 12/07/23 14:37 Pulse Oximetry 98 12/07/23 14:37 Oxygen Delivery Method Room Air 12/07/23 14:37 Course Orders Ordered: Discontinued Medications Acetaminophen (Acetaminophen 325 Mg Tablet) 650 mg PO Q6H PRN PRN Reason: Fever/Mild Pain (1-3) Last Admin: 12/07/23 20:38 Dose: 650 mg Documented By: CT Hydrocodone Bitart/Acetaminophen (Hydrocodone/Acet 5/325 Tablet) 1 tab PO BID PRN PRN Reason: pain Last Admin: 12/08/23 12:51 Dose: 1 tab Documented By: SB Aripiprazole (Aripiprazole 10 Mg Tablet) 5 mg PO BEDTIME [facility] Last Admin: 12/07/23 20:40 Dose: 5 mg Documented By: CT Aspirin (Aspirin Ec 81 Mg Tablet) 81 mg PO DAILY [facility] Last Admin: 12/08/23 08:37 Dose: 81 mg Documented By: SB Atorvastatin Calcium (Atorvastatin 20 Mg Tablet) 20 mg PO DAILY [facility] Last Admin: 12/08/23 08:37 Dose: 20 mg Documented By: SB Bupropion HCl (Bupropion Xl 150 Mg Tab) 300 mg PO DAILY [facility] Last Admin: 12/08/23 08:36 Dose: 300 mg Documented By: SB Carvedilol (Carvedilol 3.125 Mg Tablet) 6.25 mg PO BID [facility] Last Admin: 12/08/23 08:37 Dose: Not Given Documented By: Admin: 12/07/23 20:39 Dose: 6.25 mg Documented By: CT Al Hydrox/Mg Hydrox/Simethicone 20 ml/ Lidocaine HCl 15 ml 0 ml PO Q8H PRN PRN Reason: GI upset/chest pain Enoxaparin Sodium (Enoxaparin 40 Mg/0.4 Ml Syringe) 40 mg SUBCUT DAILY [facility] Last Admin: 12/08/23 08:37 Dose: Not Given Documented By: SB Hydromorphone HCl (Hydromorphone 0.5 Mg Inj) 0.5 mg IV Q4H PRN PRN Reason: Pain, Moderate (4-6) Last Admin: 12/08/23 13:32 Dose: 0.5 mg Documented By: SB Hydromorphone HCl (Hydromorphone 1 Mg Inj) 1 mg IV Q4H PRN PRN Reason: Pain, Severe (7-10) Hydroxyzine HCl (Hydroxyzine Hcl 25 Mg Tablet) 25 mg PO BEDTIME [facility] Last Admin: 12/07/23 20:40 Dose: 25 mg Documented By: CT Hydroxyzine HCl (Hydroxyzine Hcl 25 Mg Tablet) 25 mg PO Q6H PRN PRN Reason: Anxiety Last Admin: 12/08/23 12:51 Dose: 25 mg Documented By: SB Lamotrigine (Lamotrigine 100 Mg Tablet) 400 mg PO DAILY [facility] Last Admin: 12/08/23 08:36 Dose: 400 mg Documented By: SB Melatonin (Melatonin 3 Mg Tablet) 6 mg PO BEDTIME PRN PRN Reason: Insomnia Naloxone HCl (Naloxone 0.4 Mg/Ml Vial) 0.2 mg IV Q2MIN PRN PRN Reason: Opiate Reversal Ondansetron HCl (Ondansetron 4 Mg/2 Ml Inj) 4 mg IV Q8HR PRN PRN Reason: Nausea And Vomiting Pantoprazole Sodium (Pantoprazole Dr 20 Mg Tablet) 40 mg PO 0700 [facility] Last Admin: 12/08/23 08:41 Dose: 40 mg Documented By: Admin: 12/08/23 06:57 Dose: Not Given Documented By: CT Ropinirole HCl (Ropinirole 1 Mg Tablet) 10 mg PO BEDTIME [facility] Last Admin: 12/07/23 20:40 Dose: 10 mg Documented By: CT Vital Signs Vital signs: Vital Signs - 8 hr 12/07/23 14:37 12/07/23 15:34 12/07/23 16:00 Temperature 97.2 F L Pulse Rate 63 66 Respiratory Rate 18 29 H Blood Pressure 184/92 H 162/79 H Pulse Oximetry 98 96 Oxygen Delivery Method Room Air 12/07/23 16:00 12/07/23 16:30 12/07/23 16:31 Temperature Pulse Rate 60 64 64 Respiratory Rate 18 25 H Blood Pressure Pulse Oximetry 95 98 97 Oxygen Delivery Method 12/07/23 16:31 12/07/23 17:00 12/07/23 17:01 Temperature Pulse Rate 60 Respiratory Rate 17 Blood Pressure 150/68 H 155/69 H Pulse Oximetry 94 Oxygen Delivery Method 12/07/23 17:01 Temperature Pulse Rate 60 Respiratory Rate 16 Blood Pressure Pulse Oximetry 96 Oxygen Delivery Method MDM - Chest Pain Lab Data 12/08/23 04:25 12/08/23 04:25 Labs: Lab Results 12/07/23 12/07/23 Range/Units 15:13 17:05 WBC 10.4 (4.5-11.0) X10^3/uL RBC 4.93 (4.5-5.9) X10^6/uL Hgb 14.6 (13.5-17.5) g/dL Hct 42.8 (41-53) % MCV 86.9 (80-100) fL MCH 29.6 (26-34) PG MCHC 34.1 (30-36) % RDW 14.6 (11.6-14.8) % Plt Count 287 (150-400) X10^3/uL Neut % (Auto) 65.5 (50-75) % Lymph % (Auto) 19.9 L (25-40) % Craig % (Auto) 6.8 (3-14) % Eos % (Auto) 6.7 H (2-4) % Baso % (Auto) 1.1 (0-2) % Neut # (Auto) 6800 (0613-4532) /uL Lymph # (Auto) 2100 (6480-3577) /uL Craig # (Auto) 700 (0-900) /uL Eos # (Auto) 700 H (0-450) /uL Baso # (Auto) 100 (0-100) /uL PT 12.2 (9.4-12.5) SECONDS INR 1.1 (0.9-1.3) APTT 35 (25.1-36.5) SECONDS Sodium 137 (137-145) mmol/L Potassium 4.2 (3.4-5.1) mmol/L Chloride 105 (98-107) mmol/L Carbon Dioxide 20 L (22-32) mmol/L BUN 18 (9-20) mg/dL Creatinine 1.00 (0.66-1.25) mg/dL Estimated GFR > 60 (>60) mL/min BUN/Creatinine Ratio 18.0 (6-22) Glucose 146 H (80-110) mg/dL Calcium 9.1 (8.4-10.2) mg/dL Magnesium 2.0 (1.6-2.3) mg/dL Total Bilirubin 0.4 (0.2-1.3) mg/dL AST 31 (17-59) IU/L ALT 34 (<50) IU/L Alkaline Phosphatase 60 (38-126) U/L Total Creatine Kinase 96 85 (55-170) U/L Troponin I < 0.012 < 0.012 (0.01-0.034) ng/mL NT-Pro-B Natriuret Pep 33 (<125) pg/mL Total Protein 8.0 (6.3-8.2) g/dL Albumin 4.5 (3.5-5.0) g/dL Globulin 3.5 (1.7-4.1) g/dL Albumin/Globulin Ratio 1.3 (1.0-2.8) Triglycerides 271 H (35-150) mg/dL Cholesterol 172 (140-199) mg/dL LDL Cholesterol, Calc 85 (<100) mg/dL HDL Cholesterol 33 L (40-60) mg/dL TSH 2.43 (0.47-4.68) uIU/mL Imaging Data Chest x-ray: Radiologist's Impression: [address] [address] XRay Report Signed Patient: Hi Peck MR#: [id number] : 1950 Acct:[id number] Age/Sex: 73 / M Date of Service: 12/07/23 Loc: ED Accession Number: [id number] Procedure: XR chest 1V Ordering Provider: Ant Lowry MD PROCEDURE: XR CHEST 1V INDICATIONS: chest pain TECHNIQUE: One view of the chest was acquired. COMPARISON: [facility], CR, XR CHEST 1V, 09/25/2020, 18:39. FINDINGS: Surgical changes and devices: None. Lungs and pleura: Minimal appearance of coarsened bibasilar opacities. Mediastinum: Mediastinal contours appear normal. Heart size is normal. Bones and chest wall: No suspicious bony lesions. Overlying soft tissues appear unremarkable. IMPRESSION: Minimal bibasilar coarsening, nonspecific. This could represent developing pneumonia/atelectasis or potentially dependent edema change. Dictated by: Nupur Davila M.D. on 12/07/2023 at 15:38 Approved by: Nupur Davila M.D. on 12/07/2023 at 15:39 [facility] Narrative Medical decision making narrative: Patient here for evolving chest pain for the past 1 week now has left neck left arm pain. Currently symptom free. Patient takes 1000 mg of aspirin daily for cluster headaches. He already took aspirin today. Primary care Dr. Sauceda sent patient here for evaluation. Patient states has been at least 10 years since stress test. Father has history of cardiac disease. Patient has been tired fatigue short of breath. Denies any recent illness. No blood clots in legs or lungs.. Patient states his left neck and arm discomfort is different from his typical cervical fusion. He was having chest pain last week but that has improved this week but now has evolved into the left neck and arm After history and exam CBC CMP troponin EKG chest x-ray [facility] CC: Chest pain Complicating co-morbidities: Hypertension hypercholesteremia family history coronary disease Data collected from: Patient Medical records reviewed: No recent visit for this complaint Differential considered: Includes but not limited to STEMI non-STEMI angina pleurisy pneumonia pulmonary embolism Exam documented above, pertinent findings include: Nontender Lab Test results independently reviewed as above. Pertinent findings: WBC 10.4 hemoglobin 14.6 INR 1.1 sodium 137 potassium 4.2 Troponin less than 0.012 x2 Independently reviewed EKG normal sinus rhythm rate [address] elevation or depression Imaging studies independently reviewed: Chest x-ray atelectasis Consultations: 4:[address] Rivas, hospitalist, admission pending repeat troponin. Treatments: Patient has already taken aspirin Re-evaluations: Currently chest pain-free. Reviewed results with patient and exam findings as well. Agrees for admission. Will need balance of workup including stress test and echocardiogram Discussion: Appropriate for admission for balance of workup for stress test echocardiogram. Patient has had evolving chest pain and now having neck and arm pain which is atypical and not like his usual cervical fusion pain. Diagnosis: Chest pain Discharge Plan Departure Patient Disposition: Admitted as Observation Clinical Impression: Chest pain Qualifiers: Chest pain type: unspecified Qualified Code(s): R07.9 - Chest pain, unspecified Admit Date/Time: 12/07/23 17:40 Admit Provider: Gurvinder Rivas
[2023-12-07 15:23] LABS: Add Manual Diff / Slide Review NO; Basophils Absolute Auto 100 /uL (0-100); Basophils Percent Auto 1.1 % (0-2); Eosinophils Absolute Auto 700 /uL (0-450); Eosinophils Percent Auto 6.7 % (2-4); Hematocrit 42.8 % (41-53); Hemoglobin 14.6 g/dL (13.5-17.5); Lymphocytes Absolute Auto 2100 /uL (1100-4500); Lymphocytes Percent Auto 19.9 % (25-40); Mean Corpuscular HGB Conc 34.1 % (30-36); Mean Corpuscular Hemoglobin 29.6 PG (26-34); Mean Corpuscular Volume 86.9 fL (80-100); Monocytes Absolute Auto 700 /uL (0-900); Monocytes Percent Auto 6.8 % (3-14); Neutrophils Absolute Auto 6800 /uL (1500-7000); Neutrophils Percent Auto 65.5 % (50-75); Platelet Count 287 X10^3/uL (150-400); Red Blood Cell Count 4.93 X10^6/uL (4.5-5.9); Red Cell Distribution Width 14.6 % (11.6-14.8); White Blood Cell Count 10.4 X10^3/uL (4.5-11.0)
[2023-12-07 15:30] LABS: INR 1.1 (0.9-1.3); Prothrombin Time 12.2 SECONDS (9.4-12.5)
[2023-12-07 15:33] LABS: PTT Partial Thromboplastin Tim 35 SECONDS (25.1-36.5)
[2023-12-07 15:35] LABS: Alanine Aminotransferase 34 IU/L (<50); Albumin 4.5 g/dL (3.5-5.0); Albumin Globulin Ratio 1.3 (1.0-2.8); Alkaline Phosphatase 60 U/L (38-126); Aspartate Aminotransferase 31 IU/L (17-59); Bilirubin Total 0.4 mg/dL (0.2-1.3); Blood Urea Nitrogen 18 mg/dL (9-20); Calcium 9.1 mg/dL (8.4-10.2); Carbon Dioxide 20 mmol/L (22-32); Chloride 105 mmol/L (98-107); Creatine Kinase 96 U/L (55-170); Estimated Glomerular Filt Rate > 60 mL/min (>60); Globulin 3.5 g/dL (1.7-4.1); Glucose 146 mg/dL (80-110); HEMOLYSIS 17 (0-50); Potassium 4.2 mmol/L (3.4-5.1); Sodium 137 mmol/L (137-145)
--- NOTE | 2023-12-07 15:37 | PC.NURSE ---
Pt denies pain
[2023-12-07 15:46] LABS: Troponin I < 0.012 ng/mL (0.01-0.034)
[2023-12-07 17:26] LABS: Creatine Kinase 85 U/L (55-170)
--- NOTE | 2023-12-07 17:36 | DI.ECHO.S_ITS ---
[facility] +---------+ : : [address] : : : : [id number] : : : : Phone: [phone]+ Echocardiogram Report + + :Name: NIMA GARCIA Study Date: 12/08/2023 Height: 68 in : :[facility] ReadingLocation: Weight: 260 lb : : Gender: Male BSA: 2.3 m2 : :: 1950 Age: 73 yrs BP: 130/60 mmHg: :Reason For Study: CHEST PAIN : :Ordering Physician: ADAMARIS, : :JOSEF Flor Performed By: Ita Armendariz : :Referring: JOSEF BAILON : + + Interpretation Summary The ejection fraction is estimated to be 60-65%. Diastolic parameters suggest probable normal left ventricular diastolic function and normal filling pressures. The right ventricular systolic function is normal. Right ventricular systolic pressure is estimated to be 27 mmHg plus the clinically estimated CVP which cannot be estimated on this exam. No significant valvular abnormality. Procedure: A two-dimensional transthoracic echocardiogram with color flow and Doppler was performed. The study quality was technically adequate. There is no prior echocardiogram noted for this patient. The patient was in sinus bradycardia with heart rates between 54-70 bpm during the exam. Left Ventricle: The left ventricle is normal in size and wall thickness. The ejection fraction is estimated to be 60-65%. There are no obvious focal wall motion abnormalities noted but poor endocardial definition reduces the sensitivity for the detection of such. Diastolic parameters suggest probable normal left ventricular diastolic function and normal filling pressures. Right Ventricle: The right ventricle is borderline dilated. The right ventricular systolic function is normal. Atria: The left atrial size is normal. Right atrial size is normal. There is no Doppler evidence for an interatrial shunt. Mitral Valve: The mitral valve is normal in structure and function. There is trace mitral regurgitation. Aortic Valve: The aortic valve is mildly calcified. The aortic valve is trileaflet. There is mild aortic valve sclerosis. There is no aortic valve stenosis. No aortic regurgitation is present. Tricuspid Valve: The tricuspid valve is normal in structure and function. There is trace tricuspid regurgitation. Right ventricular systolic pressure is estimated to be 27 mmHg plus the clinically estimated CVP which cannot be estimated on this exam. Pulmonic Valve: The pulmonic valve is not well seen, but is grossly normal. There is no pulmonic valvular regurgitation. Great Vessels: The aortic root is normal size. The dimensions of the ascending aorta are normal. The inferior vena cava was not visualized. Pericardium/ Pleura There is no pericardial effusion. There is no pleural effusion. MMode/2D Measurements & Calculations LVIDd: 4.9 cm LVOT diam: 2.0 cm LVIDs: 2.9 cm Ao root diam: 3.8 cm FS: 39.6 % asc Aorta Diam: 3.4 cm EPSS: 0.49 cm Ao Arch Diam (Prox Trans): 3.4 cm IVSd: 1.0 cm LVPWd: 1.0 cm LV dennison. diameter/BSA (cm/m^2): 2.1 LV sys. diameter/BSA (cm/m^2): 1.3 LA A2 area: 20.0 cm2 RA long axis: 5.5 cm LA A4 area: 15.4 cm2 RA area: 13.8 cm2 LA length (vol): 5.0 cm RA vol: 29.4 ml LA vol: 51.9 ml RA : 12.9 ml/m2 LA vol index: 22.7 ml/m2 RVD1 (basal): 4.1 cm RVD2 (mid): 3.9 cm TAPSE: 2.8 cm Doppler Measurements & Calculations Ao V2 max: 185.1 cm/sec LVOT Max Mikel: 156.6 cm/sec Ao V2 mean: 133.5 cm/sec LV V1 max P.8 mmHg Ao max P.7 mmHg LV V1 VTI: 37.8 cm Ao mean P.8 mmHg BIRD(I,D): 2.9 cm2 Ao V2 VTI: 39.9 cm BIRD(V,D): 2.6 cm2 sev ratio: 0.95 BIRD indexed to BSA (cm^2/m^2): 1.3 MV E max mikel: 73.2 cm/sec TR max mikel: 259.7 cm/sec MV A max mikel: 75.6 cm/sec TR max P.0 mmHg MV E/A: 0.97 PA V2 max: 92.5 cm/sec Med Peak E' Mikel: 7.0 cm/sec PA V2 mean: 73.5 cm/sec E/E' med: 10.5 PA mean P.3 mmHg Lat Peak E' Mikel: 9.6 cm/sec PA pr(Accel): 15.6 mmHg E/E' lat: 7.6 E/e' average: 9.0 MV dec time: 0.25 sec SV(LVOT): 114.4 ml Reading Physician:IRA
[2023-12-07 17:40] LABS: Troponin I < 0.012 ng/mL (0.01-0.034)
--- NOTE | 2023-12-07 17:43 | PM.HP.1 ---
History of Present Illness History of Present Illness Date Patient Seen: 12/07/23 Chief complaint: Kotel ref/ cardiac workup Narrative: Hi Peck is a 73yo M with PMH of HTN, HLD, obesity, MICHAELLE, hereditary angioedema, BPH, RLS, GERD, cervical fusion and migraines who presents with chest pain. Patient notes he had nightly chest pain especially when lying down which he isn't sure if it's GERD or not. Describes it as similar to gas pains and only lasts a few minutes. What worried him is that he was also having tingling down his left arm at the same time, which he said could be from his prior neck fusion. His father from heart disease after having an OK at age 60. He previously had a stress test over 10 years ago. Patient denies NV, diaphoresis, dizziness, SOB, abd pain or diarrhea. [facility] Medical History GERD without esophagitis RLS (restless legs syndrome) History of hepatitis C Obesity (BMI 30-39.9) DJD (degenerative joint disease), cervical Hereditary angioedema BPH w urinary obs/LUTS Chronic low back pain Primary osteoarthritis involving multiple joints Mixed hyperlipidemia Essential hypertension Obstructive sleep apnea syndrome History of alcohol abuse Footdrop Hyperlipidemia Angioedema Cluster headaches Headache, migraine Torticollis, acute Surgical History History of nasal septoplasty History of laminectomy History of fusion of cervical spine History of bilateral inguinal hernia repair Family History Father Hyperlipidemia Hypertension Cardiac disease Depression Mother Cardiac disease Depression Social History household members: spouse Smoking Status: Former smoker alcohol intake: former substance use type: former substance user Meds Home Medications and Allergies Home Medications Medication Instructions Recorded Confirmed Type Respironics Dreamstation CPAP #1 ea 06/13/19 12/07/23 History icatibant 30 mg/3 mL subcutaneous 30 mg SUBCUT Q6-8H PRN Angioedema 09/25/21 12/07/23 History syringe aripiprazole 5 mg tablet 5 mg PO BEDTIME #90 tabs 04/19/23 02/08/24 Rx bupropion HCl 300 mg 24 hr tablet, 300 mg PO QAM #90 tabs 02/15/23 12/07/23 Rx extended release hydroxyzine pamoate 25 mg capsule 25 mg PO BEDTIME sleep #90 caps 02/15/23 12/07/23 Rx lamotrigine 200 mg tablet 400 mg (2 x 200 mg) PO DAILY #180 02/15/23 12/07/23 Rx tabs atorvastatin 20 mg tablet 20 mg PO DAILY #90 tabs 04/20/23 12/07/23 Rx carvedilol 6.25 mg tablet 6.25 mg PO BID #180 tabs 04/20/23 12/07/23 Rx ropinirole 5 mg tablet 10 mg (2 x 5 mg) PO BEDTIME #180 04/20/23 12/07/23 Rx tabs pantoprazole 40 mg tablet,delayed 40 mg PO DAILY #90 tabs 07/05/23 12/07/23 Rx release prednisone 10 mg tablet See Rx Instructions .Route 10/09/23 12/07/23 Rx .COMPLEX #20 tabs hydrocodone 5 mg-acetaminophen 325 1 tab PO BID PRN pain #10 tabs 10/26/23 12/07/23 Rx mg tablet dextroamphetamine-amphetamine ER 60 mg (2 x 30 mg) PO QAM #60 caps 11/09/23 12/07/23 Rx 30 mg 24hr capsule,extend release Allergies Allergy/AdvReac Type Severity Reaction Status Date / Time lisinopril Allergy Severe angiodema Verified 12/07/23 14:45 meloxicam Allergy Severe angiodema Verified 12/07/23 14:45 ketamine AdvReac Severe Hallucinati Verified 12/07/23 14:45 ng NSAIDS (Non-Steroidal AdvReac Intermediate Liver Verified 12/07/23 14:45 Anti-Inflamma issues Review of Systems Review of Systems Narrative: All other systems reviewed with the patient and are negative unless otherwise stated. Are Exam Vital Signs (past 8 hours): - 12/07/23 14:37 12/07/23 15:34 12/07/23 16:00 Temperature 97.2 F L Pulse Rate 63 66 Respiratory Rate 18 29 H Blood Pressure 184/92 H 162/79 H Pulse Oximetry 98 96 Oxygen Delivery Method Room Air 12/07/23 16:00 12/07/23 16:30 12/07/23 16:31 Temperature Pulse Rate 60 64 64 Respiratory Rate 18 25 H Blood Pressure Pulse Oximetry 95 98 97 Oxygen Delivery Method 12/07/23 16:31 12/07/23 17:00 12/07/23 17:01 Temperature Pulse Rate 60 Respiratory Rate 17 Blood Pressure 150/68 H 155/69 H Pulse Oximetry 94 Oxygen Delivery Method 12/07/23 17:01 Temperature Pulse Rate 60 Respiratory Rate 16 Blood Pressure Pulse Oximetry 96 Oxygen Delivery Method Oxygen Delivery Method Room Air Narrative Exam Narrative: GEN: no acute distress, obese HEENT: moist mucous membranes, PERRL NECK: trachea midline, no JVD CV: regular rate and rhythm, no murmurs PULM: clear bilaterally ABD: soft, nontender, nondistended, no organomegaly EXT: warm and well perfused with no edema NEURO: awake, alert, oriented, no focal deficits Objective Labs 12/07/23 15:13 12/07/23 15:13 Labs: Laboratory Results - last 24 hr 12/07/23 12/07/23 15:13 17:05 WBC 10.4 RBC 4.93 Hgb 14.6 Hct 42.8 MCV 86.9 MCH 29.6 MCHC 34.1 RDW 14.6 Plt Count 287 Neut % (Auto) 65.5 Lymph % (Auto) 19.9 L [place] % (Auto) 6.8 Eos % (Auto) 6.7 H Baso % (Auto) 1.1 Neut # (Auto) 6800 Lymph # (Auto) 2100 [place] # (Auto) 700 Eos # (Auto) 700 H Baso # (Auto) 100 PT 12.2 INR 1.1 APTT 35 Sodium 137 Potassium 4.2 Chloride 105 Carbon Dioxide 20 L BUN 18 Creatinine 1.00 Estimated GFR > 60 BUN/Creatinine Ratio 18.0 Glucose 146 H Calcium 9.1 Total Bilirubin 0.4 AST 31 ALT 34 Alkaline Phosphatase 60 Total Creatine Kinase 96 85 Troponin I < 0.012 < 0.012 Total Protein 8.0 Albumin 4.5 Globulin 3.5 Albumin/Globulin Ratio 1.3 Assessment & Plan Assessment & Plan narrative: # chest pain -chest pain radiated to L arm, occured at rest -patient higher risk with obesity, HTN, HLD, MICHAELLE -heart score 4 -trops neg x2, recheck in AM -NPO at midnight for nuclear stress test -echo -aspirin daily -check lipids and A1c -tele # HTN -continue coreg # HLD -continue statin # GERD -continue PPI -GI cocktail PRN # RLS -continue requip # hereditary angioedema -uses icatibant PRN for attacks # MICHAELLE -CPAP nightly # obesity -BMI 39.5 Code status is full code. DVT prophylaxis with Lovenox. Proxy is spouse Ursula. I have reviewed home meds and used all available resources to reconcile the home meds. Case discussed with ED physician/APC and patient will be admitted to the hospitalist service for further workup and management. This patient will be admitted as observation and will require less than 2 midnights of hospital time to treat chest pain.
[2023-12-07 17:51] LABS: Cholesterol 172 mg/dL (140-199); HDL Cholesterol 33 mg/dL (40-60); LDL Cholesterol Calculated 85 mg/dL (<100); Triglycerides 271 mg/dL (35-150)
[2023-12-07 18:01] LABS: NT-proBNP (BNP-Adult 18+) 33 pg/mL (<125)
[2023-12-07 18:22] LABS: TSH w/ Reflex to FT4 2.43 uIU/mL (0.47-4.68)
[2023-12-07] MEDS: ACETAMINOPHEN 325 MG TABLET 650 MG PO (20:38)
[2023-12-07] MEDS: carvediloL 3.125 MG TABLET 6.25 MG PO (20:39)
[2023-12-07] MEDS: ROPINIROLE 1 MG TABLET 10 MG PO (20:40)
[2023-12-07] MEDS: ARIPiprazole 10 MG TABLET 5 MG PO (20:40)
[2023-12-07] MEDS: hydrOXYzine HCL 25 MG TABLET PO (20:40)
[2023-12-08 00:22] VITALS: BP 136/75; PULSE 64; RESP 16; TEMP 37.2; O2SAT 98
[2023-12-08 04:50] VITALS: BP 130/70; PULSE 61; RESP 18; TEMP 36.6; O2SAT 97
[2023-12-08 05:12] LABS: Add Manual Diff / Slide Review NO; Basophils Absolute Auto 100 /uL (0-100); Basophils Percent Auto 0.8 % (0-2); Eosinophils Absolute Auto 700 /uL (0-450); Eosinophils Percent Auto 6.4 % (2-4); Hematocrit 41.1 % (41-53); Hemoglobin 13.7 g/dL (13.5-17.5); Lymphocytes Absolute Auto 2200 /uL (1100-4500); Lymphocytes Percent Auto 19.1 % (25-40); Mean Corpuscular HGB Conc 33.4 % (30-36); Mean Corpuscular Hemoglobin 29.2 PG (26-34); Mean Corpuscular Volume 87.3 fL (80-100); Monocytes Absolute Auto 800 /uL (0-900); Monocytes Percent Auto 7.2 % (3-14); Neutrophils Absolute Auto 7600 /uL (1500-7000); Neutrophils Percent Auto 66.5 % (50-75); Platelet Count 273 X10^3/uL (150-400); Red Blood Cell Count 4.71 X10^6/uL (4.5-5.9); Red Cell Distribution Width 14.8 % (11.6-14.8); White Blood Cell Count 11.5 X10^3/uL (4.5-11.0)
[2023-12-08 05:37] LABS: Troponin I < 0.012 ng/mL (0.01-0.034)
[2023-12-08 05:40] LABS: BUN Creatinine Ratio 18.8 (6-22); Blood Urea Nitrogen 21 mg/dL (9-20); Calcium 9.2 mg/dL (8.4-10.2); Carbon Dioxide 22 mmol/L (22-32); Chloride 103 mmol/L (98-107); Estimated Glomerular Filt Rate > 60 mL/min (>60); Glucose 163 mg/dL (80-110); HEMOLYSIS 48 (0-50); Potassium 4.7 mmol/L (3.4-5.1); Sodium 137 mmol/L (137-145)
[2023-12-08 08:00] VITALS: BP 145/78; PULSE 61; RESP 16; TEMP 36.1; O2SAT 98
[2023-12-08] MEDS: buPROPion XL 150 MG TAB 300 MG PO (08:36)
[2023-12-08] MEDS: lamoTRIgine 100 MG TABLET 400 MG PO (08:36)
[2023-12-08] MEDS: ASPIRIN EC 81 MG TABLET PO (08:37)
[2023-12-08] MEDS: ATORVASTATIN 20 MG TABLET PO (08:37)
[2023-12-08] MEDS: PANTOPRAZOLE DR 20 MG TABLET 40 MG PO (08:41)
--- NOTE | 2023-12-08 11:01 | CM.DANOTE ---
Initial DCP Assessment Note Pt is a 73 yo male, resident of [place], admitted for chest pain r/o; heart work up PCP: Anoop Sauceda Payer: LENORA/Pablo Reviewed chart, pt discussed in multidisciplinary rounds this morning. Patient is scheduled for stress test and echo. Met w/patient to introduce self and role. Patient is indp in all aspects, lives with spouse. Patient reports PTSD with severe anxiety and depressive disorder, sees DR Nair, psychiatrist. Patient reports his will transport if he is discharged before dark. Otherwise patient will need a taxi (no Medicaid transport benefit). Patient tells this [employer] he and spouse are on a limited budget and he cannot pay for taxi. Updated RN that patient would be a candidate for taxi voucher so that discharge is not held. No barriers identified at this time to patient's safe discharge home w/spouse to assist; close outpatient f/u recommended. CM team will plan to follow closely. May need taxi arrangements upon discharge. 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 Yes Advance Directives on File No History Provided By Patient,Medical Record Prior Living Arrangements House Household Members spouse Type of transporation used prior to Drives own vehicle admit Independent with ADL's Yes Is patient alert and oriented? Yes Barriers to Discharge No Comment Home w/outpatient follow up vs transfer depending on heart w /u; chest pain r/o Discharge Plan Home Transportation Arrangement Spouse can drive if still light out vs taxi Referrals Initiated None needed,Other
[2023-12-08] MEDS: hydrOXYzine HCL 25 MG TABLET PO (12:51)
[2023-12-08] MEDS: HYDROCODONE/ACET 5/325 TABLET 1 TAB PO (12:51)
[2023-12-08 13:00] VITALS: BP 141/76; PULSE 64; RESP 16; TEMP 36.6; O2SAT 96
[2023-12-08] MEDS: HYDROMORPHONE 0.5 MG INJ IV (13:32)
--- NOTE | 2023-12-08 14:15 | PM.DS.1 ---
History of Present Illness History of Present Illness Chief complaint: Kotel ref/ cardiac workup Narrative: Hi Peck is a 73yo M with PMH of HTN, HLD, obesity, MICHAELLE, hereditary angioedema, BPH, RLS, GERD, cervical fusion and migraines who presents with chest pain. Patient notes he had nightly chest pain especially when lying down which he isn't sure if it's GERD or not. Describes it as similar to gas pains and only lasts a few minutes. What worried him is that he was also having tingling down his left arm at the same time, which he said could be from his prior neck fusion. His father from heart disease after having an SD at age 60. He previously had a stress test over 10 years ago. Patient denies NV, diaphoresis, dizziness, SOB, abd pain or diarrhea. Discharge Providers Provider Date of admission: 12/07/23 17:40 Discharge Date: 12/08/23 Primary care physician: Anoop Sauceda MD Discharge provider: Gurvinder Rivas DO Summary Hospital Course Discharge Diagnosis: # chest pain -chest pain radiated to L arm, occured at rest -patient higher risk with obesity, HTN, HLD, MICHAELLE -heart score 4 -trops neg x3 -nuclear stress test low risk study -echo with EF 60-65%, diastolic dysfunction, RVSP 27, no wall motion abnormalities -aspirin daily -lipids well controlled and A1c -tele # HTN -continue coreg # HLD -continue statin # GERD -continue PPI -GI cocktail PRN # RLS -continue requip # hereditary angioedema -uses icatibant PRN for attacks # MICHAELLE -CPAP nightly # obesity -BMI 39.5 Hospital Course: Admitted for chest pain. All cardiac testing was reassuring including normal troponins, EKG, echo and nuclear stress test. Chest pain likely due to reflux as was occurring nightly and when lying down. Already on PPI. Discharged home. Exam Vital Signs (past 8 hours): - 12/08/23 08:00 12/08/23 13:00 Temperature 97.0 F L 97.8 F Pulse Rate 61 64 Respiratory Rate 16 16 Blood Pressure 145/78 H 141/76 H Pulse Oximetry 98 96 Oxygen Flow Rate 0 Oxygen Delivery Method Room Air Oxygen Flow Rate 0 Narrative Exam Narrative: GEN: no acute distress, obese HEENT: moist mucous membranes, PERRL NECK: trachea midline, no JVD CV: regular rate and rhythm, no murmurs PULM: clear bilaterally ABD: soft, nontender, nondistended, no organomegaly EXT: warm and well perfused with no edema NEURO: awake, alert, oriented, no focal deficits Objective Labs 12/08/23 04:25 12/08/23 04:25 Labs: Laboratory Results - last 24 hr 12/07/23 12/07/23 12/08/23 15:13 17:05 04:25 WBC 10.4 11.5 H RBC 4.93 4.71 Hgb 14.6 13.7 Hct 42.8 41.1 MCV 86.9 87.3 MCH 29.6 29.2 MCHC 34.1 33.4 RDW 14.6 14.8 Plt Count 287 273 Neut % (Auto) 65.5 66.5 Lymph % (Auto) 19.9 L 19.1 L [place] % (Auto) 6.8 7.2 Eos % (Auto) 6.7 H 6.4 H Baso % (Auto) 1.1 0.8 Neut # (Auto) 6800 7600 H Lymph # (Auto) 2100 2200 [place] # (Auto) 700 800 Eos # (Auto) 700 H 700 H Baso # (Auto) 100 100 PT 12.2 INR 1.1 APTT 35 Sodium 137 137 Potassium 4.2 4.7 Chloride 105 103 Carbon Dioxide 20 L 22 BUN 18 21 H Creatinine 1.00 1.12 Estimated GFR > 60 > 60 BUN/Creatinine Ratio 18.0 18.8 Glucose 146 H 163 H Calcium 9.1 9.2 Magnesium 2.0 Total Bilirubin 0.4 AST 31 ALT 34 Alkaline Phosphatase 60 Total Creatine Kinase 96 85 Troponin I < 0.012 < 0.012 < 0.012 NT-Pro-B Natriuret Pep 33 Total Protein 8.0 Albumin 4.5 Globulin 3.5 Albumin/Globulin Ratio 1.3 Triglycerides 271 H Cholesterol 172 LDL Cholesterol, Calc 85 HDL Cholesterol 33 L TSH 2.43 PFSH Medical History GERD without esophagitis RLS (restless legs syndrome) History of hepatitis C Obesity (BMI 30-39.9) DJD (degenerative joint disease), cervical Hereditary angioedema BPH w urinary obs/LUTS Chronic low back pain Primary osteoarthritis involving multiple joints Mixed hyperlipidemia Essential hypertension Obstructive sleep apnea syndrome History of alcohol abuse Footdrop Hyperlipidemia Angioedema Cluster headaches Headache, migraine Torticollis, acute Surgical History History of nasal septoplasty History of laminectomy History of fusion of cervical spine History of bilateral inguinal hernia repair Family History Father Hyperlipidemia Hypertension Cardiac disease Depression Mother Cardiac disease Depression Social History household members: spouse Smoking Status: Former smoker alcohol intake: former substance use type: former substance user Discharge Plan Discharge Plan Patient Disposition: Home Provider Discharge Comment: All of your cardiac testing was reassuring including normal heart enzymes, normal EKG, normal echo and normal stress test. Your chest pain is likely non-cardiac. Discharge orders & Medications Prescriptions: Continued icatibant 30 mg/3 mL syringe 30 mg SUBCUT Q6-8H PRN (Reason: Angioedema) aripiprazole 5 mg tablet 5 mg PO BEDTIME Qty: 90 3RF Hold Instructions: oversedation bupropion HCl 300 mg tablet extended release 24 hr 300 mg PO QAM Qty: 90 3RF hydroxyzine pamoate 25 mg capsule 25 mg PO BEDTIME Qty: 90 3RF lamotrigine 200 mg tablet 400 mg PO DAILY Qty: 180 3RF (DME) Respironics Dreamstation CPAP Qty: 1 Dose Instruction: As directed Patient Comments: Pressure: 6-20 cmH2O DME: Rx Instructions: As directed pantoprazole 40 mg tablet,delayed release (DR/EC) 40 mg PO DAILY Qty: 90 3RF dextroamphetamine-amphetamine 30 mg capsule,extended release 24hr 60 mg PO QAM Qty: 60 0RF hydrocodone-acetaminophen 5-325 mg tablet 1 tab PO BID PRN (Reason: pain) Qty: 10 0RF atorvastatin 20 mg tablet 20 mg PO DAILY Qty: 90 3RF carvedilol 6.25 mg tablet 6.25 mg PO BID Qty: 180 3RF ropinirole 5 mg tablet 10 mg PO BEDTIME Qty: 180 3RF prednisone 10 mg tablet See Rx Instructions .Route .COMPLEX Qty: 20 2RF Rx Instructions: 4 tablets daily for 2 days, then 3 tablets daily for 2 days, then 2 tablets daily for 2 days, then 1 tablet daily for 2 days then stop; Follow up/Referrals: Anoop Sauceda MD [Primary Care Provider] - 2 Weeks Visit Report/Discharge Packet Instructions: DI for Gastroesophageal Reflux Disease (GERD), How to Prevent Falls Stand Alone Forms: Patient Portal/API, Stroke Signs & Symptoms Discharge Data Primary Care Provider: Anoop Sauceda V Attending Provider: Gurvinder Rivas Admit Date/Time: 12/07/23 17:40 Quality VTE Deep Vein Thrombosis/Pulmonary Embolism Present on Admission: No
--- NOTE | 2023-12-08 14:55 | DI.NM.S_ITS ---
DATE OF SERVICE: 12/08/2023 STUDY: Pharmacological perfusion study. This is a stress perfusion study. INDICATIONS: Chest pain with underlying hypertension and hyperlipidemia. RADIOPHARMACEUTICAL: 27.0 millicuries of technetium-99m Myoview IV was injected at stress. CARDIAC STRESS: The patient underwent IV Lexiscan perfusion study under the supervision of attending staff using standard intravenous Lexiscan protocol. The patient remained hemodynamically stable. Baseline blood pressure 132/78. Baseline rhythm, sinus. During stress, no convincing ischemic EKG changes seen. No significant arrhythmias. No chest discomfort. The patient has minimal dyspnea and mild abdominal discomfort during Lexiscan injection, as well as chronic persistent headache. No aminophylline needed. RAW DATA: There is increased subdiaphragmatic activity. The patient's weight is 260 pounds. GATED STUDY: Stress LV ejection fraction 74%. There is no obvious wall motion abnormality. TID ratio 0.96, which is within normal limits. MYOCARDIAL PERFUSION SCAN: Stress supine images revealed small size, mildly decreased perfusion of basal inferior wall extending into the basal inferolateral wall, as well as distal inferolateral wall which got completely resolved during stress prone images suggestive of diaphragmatic tissue attenuation artifact. During stress prone images, there is a minimally decreased perfusion of mid anterior wall which was not seen during stress supine images. No convincing ischemia or infarction pattern seen. CONCLUSION: I will call this study likely a normal myocardial perfusion study with evidence of tissue attenuation artifact, which got resolved during stress prone images. Preserved left ventricular function. No ischemic electrocardiographic changes. Overall, low risk myocardial perfusion scan. Correlate clinically. Hi Peck - CHIDI/glenis/ciara doc#: [id number]/job#: [id number] dd: 12/08/2023 12:43:00 dt: 12/08/2023 14:48:00 DICTATING MD/COPIES TO: Mounika Morton MD COPIES MNE: JESSICA;
== END 2023-12-08 16:30 | disposition home or self-care (01) ==
LOC: ED 16:44 → AC 17:41
PROVIDERS: Admitting Provider Student in an Organized Health Care Education/Training Program; Emergency Provider Emergency Medicine; PCP Internal Medicine; Referring Provider Emergency Medicine; Visit Provider Student in an Organized Health Care Education/Training Program
DX: R07.9 Chest pain, unspecified (principal); G47.33 Obstructive sleep apnea (adult) (pediatric); K21.9 Gastro-esophageal reflux disease without esophagitis; I10 Essential (primary) hypertension; E78.5 Hyperlipidemia, unspecified; D84.1 Defects in the complement system; E66.9 Obesity, unspecified; Z68.39 Body mass index [BMI] 39.0-39.9, adult
CPT/HCPCS: 36415; 71045; 78451; 80048; 80053; 80061; 82550; 83735; 83880; 84443; 84484; 85025; 85610; 85730; 93005; 93010; 93017; 93306; 96374; 99284; G0378; A9270; A9502; J1170; J2785

== ENCOUNTER 2025-07-30 12:17 | Emergency (ER) | payer MEDICARE, OTHER, SELFPAY ==
[2020-09-26 12:10] VITALS: PULSE 83; RESP 20; O2SAT 97
[2023-12-07 18:11] VITALS: BMI 39.5
[2025-07-30] VITALS (23 sets, daily range): BP systolic 152–207; BP diastolic 71–103; PULSE 60–92; RESP 14–27; TEMP 36.6; O2SAT 92–98; BMI 38.4
--- NOTE | 2025-07-30 12:24 | DI.CT.S_ITS ---
PROCEDURE: CT HEAD/BRAIN WO CON INDICATIONS: fall down stairs TECHNIQUE: Noncontrast 4.5 mm thick angled axial sections acquired from the foramen magnum to the vertex, with coronal and sagittal reformats. For radiation dose reduction, the following was used: automated exposure control, adjustment of mA and/or kV according to patient size. COMPARISON: [facility], CT, HEAD WITHOUT CONTRAST, 12/03/2017, 0:03. FINDINGS: Image quality: Diagnostic. CSF spaces: Basal cisterns are patent. No extra-axial fluid collections. The ventricles are symmetric in size and shape. Brain: No intracranial bleeds or mass effect. There is cerebral volume loss, with resultant ventricular and sulcal prominence. There are periventricular and deep white matter chronic small vessel ischemic changes. There is intracranial internal carotid artery atherosclerosis. Skull and face: Calvarium and visualized facial bones appear intact, without suspicious lesions. Sinuses: Visualized sinuses and mastoids are clear. IMPRESSION: 1. No acute intracranial process. 2. Moderate atrophy and chronic microvascular ischemic changes. Dictated by: Nupur Davila M.D. on 07/30/2025 at 13:45 Approved by: Nupur Davila M.D. on 07/30/2025 at 13:45
--- NOTE | 2025-07-30 12:24 | DI.CT.S_ITS ---
PROCEDURE: CT CERVICAL SPINE WO CON INDICATIONS: fall down stairs TECHNIQUE: Noncontrast 3 mm thick sections acquired from the skull base to the T4 level. Sagittal and coronal reformats were then constructed. For radiation dose reduction, the following was used: automated exposure control, adjustment of mA and/or kV according to patient size. COMPARISON: None. FINDINGS: Image quality: Excellent. Bones: No fractures or dislocations. Visualized superior ribs are intact. Soft tissues: Prevertebral soft tissues are normal in thickness. No paravertebral hematomas. No apical pneumothoraces. IMPRESSION: No displaced fracture or traumatic subluxation. Dictated by: Nupur Davila M.D. on 07/30/2025 at 13:46 Approved by: Nupur Davila M.D. on 07/30/2025 at 13:46
--- NOTE | 2025-07-30 12:24 | DI.RAD.S_ITS ---
PROCEDURE: XR SHOULDER LT MIN 2V INDICATIONS: fall shoulder pain TECHNIQUE: 2 views of the shoulder were acquired. COMPARISON: None. FINDINGS: Bones: Inferior and somewhat medial dislocation of the humeral head. Fracture fragment is present adjacent to the posterior humeral head/glenoid. Soft tissues: No suspicious soft tissue calcifications. IMPRESSION: Anterior dislocation with likely fracture of the glenoid or posterior humeral head not well characterized on current exam. Dictated by: Nupur Davila M.D. on 07/30/2025 at 13:43 Approved by: Nupur Davila M.D. on 07/30/2025 at 13:44
--- NOTE | 2025-07-30 12:24 | DI.RAD.S_ITS ---
PROCEDURE: XR CHEST 1V INDICATIONS: fall shoulder pain TECHNIQUE: One view of the chest was acquired. COMPARISON: [facility], CR, XR SHOULDER LT 2+ VIEWS, 07/30/2025, 12:46. [facility], CR, XR CHEST 1V, 12/07/2023, 14:57. FINDINGS: Surgical changes and devices: None. Lungs and pleura: Mild appearance of increased pulmonary vascularity. Mediastinum: Mediastinal contours appear normal. Heart size is normal. Bones and chest wall: No suspicious bony lesions. Left shoulder demonstrates humeral head inferior to the glenohumeral joint space. Fracture fragment is present. IMPRESSION: Increased vascularity suggestive of edema. Left shoulder dislocation with appearance of fracture. See x-ray shoulder report for further details. Dictated by: Nupur Davila M.D. on 07/30/2025 at 13:42 Approved by: Nupur Davila M.D. on 07/30/2025 at 13:43
--- NOTE | 2025-07-30 12:34 | ED.FALL ---
HPI - Fall <Katie Cardenas PA-C - Last Filed: 07/30/25 18:27> General Chief Complaint: Fall Stated Complaint: D/L shoulder from a fall Time Seen by Provider: 07/30/25 12:21 Mode of arrival: EMS History of Present Illness HPI Narrative: Mr. Peck is a very pleasant 75-year-old male with a past medical history of chronic headaches, HTN, HLD, angioedema, ADD, anxiety, depression, MICHAELLE who presents to the emergency department via EMS from home for left shoulder pain after a fall down a few stairs. Patient states that he was carrying a chair down stairs at home, he had the chair lift it above his head while carrying it, he tripped causing him to fall forward down about 5 stairs hitting directly into a wall. When he hit the wall his arm was still above his head holding the chair and he developed immediate left shoulder pain. States that he did hit his forehead on the wall, but is not experiencing any significant head pain, there was no loss of consciousness, he does not take blood thinners but he does take aspirin for pain. No nausea or vomiting after the incident. No chest pain, abdominal pain, neck pain, back pain, lower extremity pain, right upper extremity pain. He does have severe pain of his left upper arm/shoulder, no numbness tingling or weakness of the lower left arm, he still is able to move his hand appropriately. No pain of the bilateral elbows or wrists. He does have angioedema to lisinopril, meloxicam, denies allergies to morphine or Zofran. Related Data Home Medications ?Medication ?Instructions ?Recorded ?Confirmed Respironics Dreamstation CPAP #1 ea 06/13/19 10/14/24 icatibant 30 mg/3 mL subcutaneous 30 mg SUBCUT Q6-8H PRN Angioedema 09/25/21 01/15/25 syringe hydroxyzine pamoate 25 mg capsule 25 mg PO BEDTIME PRN sleep 10/14/24 01/15/25 Previous Rx's ?Medication ?Instructions ?Recorded carvedilol 6.25 mg tablet 6.25 mg PO BID #180 tabs 04/20/23 nitroglycerin 0.4 mg sublingual 0.4 mg sublingual Q5M PRN 11/08/24 tablet esophageal spasm #25 tabs bupropion HCl 300 mg 24 hr tablet, 300 mg PO QAM #90 tabs 12/12/24 extended release gabapentin 300 mg capsule 300 mg PO BEDTIME #30 caps 01/15/25 oxybutynin chloride 5 mg tablet 5 mg PO BID-TID PRN bladder spasms 02/11/25 #270 tabs pantoprazole 40 mg tablet,delayed 40 mg PO DAILY #90 tabs 03/12/25 release fluoxetine 20 mg capsule (Prozac) 40 mg (2 x 20 mg) PO DAILY #180 05/12/25 caps dextroamphetamine-amphetamine ER 60 mg (2 x 30 mg) PO QAM #60 caps 07/14/25 30 mg 24hr capsule,extend release (Adderall XR) atorvastatin 20 mg tablet 20 mg PO DAILY #90 tabs 07/31/25 oxycodone 5 mg tablet 2.5 - 5 mg (0.5 - 1 x 5 mg) PO Q8H 07/31/25 PRN pain #12 tabs Allergies Allergy/AdvReac Type Severity Reaction Status Date / Time lisinopril Allergy Severe angiodema Verified 01/15/25 14:34 meloxicam Allergy Severe angiodema Verified 01/15/25 14:34 ketamine AdvReac Severe Hallucinati Verified 01/15/25 14:34 ng amlodipine AdvReac Intermediate slurred Verified 01/15/25 14:34 speech NSAIDS (Non-Steroidal AdvReac Intermediate Liver Verified 01/15/25 14:34 Anti-Inflamma issues pramipexole AdvReac Intermediate Headache Verified 01/15/25 14:53 ropinirole AdvReac Intermediate dizzy Verified 01/15/25 14:34 Review of Systems <Katie Cardenas PA-C - Last Filed: 07/30/25 18:27> Review of Systems ROS Unobtainable: All systems reviewed & are unremarkable except as noted in HPI and below Patient History <Katie Cardenas PA-C - Last Filed: 07/30/25 18:27> Medical History Esophageal spasm GERD without esophagitis RLS (restless legs syndrome) History of hepatitis C Obesity (BMI 30-39.9) DJD (degenerative joint disease), cervical Hereditary angioedema BPH w urinary obs/LUTS Chronic low back pain Primary osteoarthritis involving multiple joints Mixed hyperlipidemia Essential hypertension Obstructive sleep apnea syndrome History of alcohol abuse Footdrop Hyperlipidemia Angioedema Cluster headaches Headache, migraine Torticollis, acute Surgical History History of nasal septoplasty History of laminectomy History of fusion of cervical spine History of bilateral inguinal hernia repair Family History Father Hyperlipidemia Hypertension Cardiac disease Depression Mother Cardiac disease Depression Social History household members: spouse alcohol intake: former substance use type: former substance user Smoking Status: Unknown if ever smoked alcohol intake frequency: 0-2 drinks per day Exam <Katie Cardenas PA-C - Last Filed: 07/30/25 18:27> Narrative Exam Narrative: GENERAL: 75 year old patient appears stated age. Obese patient, in mild distress secondary to Left shoulder pain. HEAD: Atraumatic. Normocephalic. No scalp tenderness or wounds. EYES: PERRL. Extraocular motions intact. No scleral icterus. No injection or drainage. ENT: Cerumen in bilateral canals, no reyes sign. Nose without bleeding, purulent drainage. Throat without erythema, tonsillar hypertrophy or exudate. Airway patent. NECK: Trachea midline. Cervical ROM intact. No midline cervical tenderness. CARDIOVASCULAR: Regular rate and rhythm. RESPIRATORY: ?Nonlabored respirations. ?Speaking in clear, full sentences. ?Clear to auscultation. Breath sounds equal bilaterally. No wheezes, rales, or rhonchi. ? GASTROINTESTINAL: Abdomen soft, non-tender, nondistended. Diastasis recti. EXTREMITIES: Left arm in a make-shift sling by EMS for comfort. He is unable to perform ROM of L shoulder. Patient has tenderness to palpation of the left shoulder, left proximal humerus. No open fracture. No tenderness to palpation of bilateral clavicles, elbows, wrists, hands, hips, knees, ankles. 2+ radial pulses bilaterally. Brisk cap refill in the fingertips. BACK: Nontender without deformity or crepitance. No flank tenderness. NEURO: AOx3. ?Clear speech. ?Sensation intact to light touch in the distribution of the median, ulnar, radial nerves bilaterally. SKIN: No rash or erythema of visible areas Initial Vital Signs Initial Vital Signs: Vital Signs Temperature 97.9 F 07/30/25 12:20 Pulse Rate 92 H 07/30/25 12:20 Respiratory Rate 14 07/30/25 12:20 Blood Pressure 185/103 H 07/30/25 12:20 Pulse Oximetry 92 07/30/25 12:20 Oxygen Delivery Method Room Air 07/30/25 12:20 <Renate Watson DO - Last Filed: 08/01/25 21:16> Initial Vital Signs Initial Vital Signs: Vital Signs Temperature 97.9 F 07/30/25 12:20 Pulse Rate 92 H 07/30/25 12:20 Respiratory Rate 14 07/30/25 12:20 Blood Pressure 185/103 H 07/30/25 12:20 Pulse Oximetry 92 07/30/25 12:20 Oxygen Delivery Method Room Air 07/30/25 12:20 Procedures <Renate Watson DO - Last Filed: 08/01/25 21:16> Orthopedic Joint Reduction Joint #1: Time Out Performed: Yes Side: left Joint Reduction Location: shoulder Analgesia: procedural sedation Amount of anesthesic used (mL): 150 Shoulder Technique Used (if applicable): traction/counter-traction, scapula manipulation and external rotation Technique used: traction/counter-traction Post-reduction neuro exam: intact and no change Post-reduction vascular: intact and no change Post Reduction X-Ray Obtained: Yes Post Reduction X-Ray Results: reduced Splint Applied: Yes (Sling) Patient Tolerated Procedure: Well Procedural Sedation Consent signed: Yes Time out performed: Yes Indication: fracture/dislocation reduction ASA Class: II Mallampati Airway Classification: Class III Time of Last PO Intake: 05:30 Preparation: manager loan applied, pulse oximeter, capnometry used, supplemental O2 applied, suction/airway equipment at bedside and IV secured IV Propofol dose (mg): 150 (Patient received 100 mg, had inadequate sedations received an additional 50 mg. ) ED Sedation Level: Moderate (Concious) Patient Tolerated Procedure: Well Complications: hypoventilation Interventions: Airway repositioned, Assist by BVM and Oxygen applied Course <YADIEL Cabrera Last Filed: 07/30/25 18:27> Orders Ordered: Discontinued Medications Hydromorphone HCl (Hydromorphone Hcl 0.5 Mg/0.5 Ml Syringe) 0.5 mg IV NOW ONE Stop: 07/30/25 13:36 Last Admin: 07/30/25 14:03 Dose: 0.5 mg Documented By: LIZA Sodium Chloride (Normal Saline 0.9%) 1,000 mls @ 1,000 mls/hr IV BOLUS ONE Stop: 07/30/25 14:15 Last Infusion: 07/30/25 15:33 Dose: Infused Documented By: Admin: 07/30/25 14:08 Dose: 1,000 mls/hr Documented By: LIZA Morphine Sulfate (Morphine 4 Mg/Ml Inj) 4 mg IV NOW ONE Stop: 07/30/25 12:25 Last Admin: 07/30/25 12:38 Dose: 4 mg Documented By: LIZA Ondansetron HCl (Ondansetron 4 Mg/2 Ml Inj) 4 mg IV NOW ONE Stop: 07/30/25 12:25 Last Admin: 07/30/25 12:37 Dose: 4 mg Documented By: LIZA Ondansetron HCl (Ondansetron 4 Mg/2 Ml Inj) 4 mg IV NOW ONE Stop: 07/30/25 14:09 Last Admin: 07/30/25 14:10 Dose: 4 mg Documented By: LIZA Propofol (Propofol 200 Mg/20 Ml Vial) 120 mg 1 mg/kg (120 mg) IV NOW ONE Stop: 07/30/25 14:18 Last Admin: 07/30/25 14:37 Dose: 120 mg Documented By: LIZA Consultations Consultation #1: consulted ortho on-daniel, Dr. Bar, as initial x-ray does reveal what appears to be dislocation and fracture. She does not want CT at this time she recommends relaxing the patient, reducing the dislocation, then obtaining postreduction x-ray and CT once it is reduced. States it fracture is greater tuberosity fracture, if all goes well she can follow up with him in 1-2 weeks. Placed him in a sling. Time: 13:15 Consultation #2: After patient's left shoulder was reduced, left shoulder CT ordered, called and discussed case again with orthopedic surgeon on-call Dr. Bar who reviewed the CT scan, stated that reduction looked very good and patient could follow up with her within the next 2 weeks, he will likely heal nonsurgically, place into a sling for discharge. Time: 16:00 Vital Signs Vital signs: Vital Signs - 8 hr 07/30/25 12:20 07/30/25 12:23 07/30/25 12:44 Temperature 97.9 F Pulse Rate 92 H 60 65 Respiratory Rate 14 Blood Pressure 185/103 H Pulse Oximetry 92 97 98 Oxygen Delivery Method Room Air Oxygen Flow Rate 07/30/25 12:45 07/30/25 12:45 07/30/25 13:15 Temperature Pulse Rate 65 64 Respiratory Rate Blood Pressure 186/98 H Pulse Oximetry 97 93 Oxygen Delivery Method Oxygen Flow Rate 07/30/25 13:16 07/30/25 13:16 07/30/25 13:30 Temperature Pulse Rate 60 63 Respiratory Rate Blood Pressure 207/98 H Pulse Oximetry 95 96 Oxygen Delivery Method Oxygen Flow Rate 07/30/25 14:00 07/30/25 14:30 07/30/25 14:34 Temperature Pulse Rate 71 71 Respiratory Rate Blood Pressure 178/89 H Pulse Oximetry 96 97 Oxygen Delivery Method Oxygen Flow Rate 07/30/25 14:34 07/30/25 14:36 07/30/25 14:40 Temperature Pulse Rate 71 Respiratory Rate Blood Pressure Pulse Oximetry 95 Oxygen Delivery Method Oxygen Flow Rate 2 4 07/30/25 14:40 07/30/25 14:40 07/30/25 14:45 Temperature Pulse Rate 69 Respiratory Rate 23 Blood Pressure 190/87 H Pulse Oximetry 92 Oxygen Delivery Method Oxygen Flow Rate 4 07/30/25 14:45 07/30/25 14:45 07/30/25 14:50 Temperature Pulse Rate 72 Respiratory Rate 20 Blood Pressure 179/85 H Pulse Oximetry 95 Oxygen Delivery Method Oxygen Flow Rate 2 07/30/25 14:50 07/30/25 14:50 07/30/25 14:55 Temperature Pulse Rate 70 Respiratory Rate 15 Blood Pressure 166/85 H Pulse Oximetry 96 Oxygen Delivery Method Oxygen Flow Rate 0 07/30/25 14:55 07/30/25 14:55 07/30/25 15:00 Temperature Pulse Rate 70 Respiratory Rate 16 Blood Pressure 168/84 H 165/84 H Pulse Oximetry 93 Oxygen Delivery Method Oxygen Flow Rate 07/30/25 15:00 07/30/25 15:05 07/30/25 15:05 Temperature Pulse Rate 68 71 Respiratory Rate 19 17 Blood Pressure 163/85 H Pulse Oximetry 93 94 Oxygen Delivery Method Oxygen Flow Rate 07/30/25 15:10 07/30/25 15:10 07/30/25 15:15 Temperature Pulse Rate 70 Respiratory Rate 16 Blood Pressure 163/78 H 178/86 H Pulse Oximetry 94 Oxygen Delivery Method Oxygen Flow Rate 07/30/25 15:15 07/30/25 15:20 07/30/25 15:20 Temperature Pulse Rate 70 71 Respiratory Rate 27 H Blood Pressure 171/80 H Pulse Oximetry 94 95 Oxygen Delivery Method Oxygen Flow Rate 07/30/25 15:25 07/30/25 15:25 07/30/25 15:30 Temperature Pulse Rate 73 Respiratory Rate 14 Blood Pressure 167/81 H 153/71 H Pulse Oximetry 95 Oxygen Delivery Method Oxygen Flow Rate 07/30/25 15:30 07/30/25 15:35 07/30/25 15:35 Temperature Pulse Rate 76 76 Respiratory Rate Blood Pressure 153/75 H Pulse Oximetry 97 96 Oxygen Delivery Method Oxygen Flow Rate 07/30/25 17:30 Temperature Pulse Rate 74 Respiratory Rate Blood Pressure 152/71 H Pulse Oximetry 95 Oxygen Delivery Method Oxygen Flow Rate <Renate Watson, DO - Last Filed: 08/01/25 21:16> Orders Ordered: Discontinued Medications Hydromorphone HCl (Hydromorphone Hcl 0.5 Mg/0.5 Ml Syringe) 0.5 mg IV NOW ONE Stop: 07/30/25 13:36 Last Admin: 07/30/25 14:03 Dose: 0.5 mg Documented By: LIZA Sodium Chloride (Normal Saline 0.9%) 1,000 mls @ 1,000 mls/hr IV BOLUS ONE Stop: 07/30/25 14:15 Last Infusion: 07/30/25 15:33 Dose: Infused Documented By: Admin: 07/30/25 14:08 Dose: 1,000 mls/hr Documented By: LIZA Morphine Sulfate (Morphine 4 Mg/Ml Inj) 4 mg IV NOW ONE Stop: 07/30/25 12:25 Last Admin: 07/30/25 12:38 Dose: 4 mg Documented By: LIZA Ondansetron HCl (Ondansetron 4 Mg/2 Ml Inj) 4 mg IV NOW ONE Stop: 07/30/25 12:25 Last Admin: 07/30/25 12:37 Dose: 4 mg Documented By: LIZA Ondansetron HCl (Ondansetron 4 Mg/2 Ml Inj) 4 mg IV NOW ONE Stop: 07/30/25 14:09 Last Admin: 07/30/25 14:10 Dose: 4 mg Documented By: LIZA Propofol (Propofol 200 Mg/20 Ml Vial) 120 mg 1 mg/kg (120 mg) IV NOW ONE Stop: 07/30/25 14:18 Last Admin: 07/30/25 14:37 Dose: 120 mg Documented By: LIZA Vital Signs Vital signs: Vital Signs - 8 hr 07/30/25 12:20 07/30/25 12:23 07/30/25 12:44 Temperature 97.9 F Pulse Rate 92 H 60 65 Respiratory Rate 14 Blood Pressure 185/103 H Pulse Oximetry 92 97 98 Oxygen Delivery Method Room Air Oxygen Flow Rate 07/30/25 12:45 07/30/25 12:45 07/30/25 13:15 Temperature Pulse Rate 65 64 Respiratory Rate Blood Pressure 186/98 H Pulse Oximetry 97 93 Oxygen Delivery Method Oxygen Flow Rate 07/30/25 13:16 07/30/25 13:16 07/30/25 13:30 Temperature Pulse Rate 60 63 Respiratory Rate Blood Pressure 207/98 H Pulse Oximetry 95 96 Oxygen Delivery Method Oxygen Flow Rate 07/30/25 14:00 07/30/25 14:30 07/30/25 14:34 Temperature Pulse Rate 71 71 Respiratory Rate Blood Pressure 178/89 H Pulse Oximetry 96 97 Oxygen Delivery Method Oxygen Flow Rate 07/30/25 14:34 07/30/25 14:36 07/30/25 14:40 Temperature Pulse Rate 71 Respiratory Rate Blood Pressure Pulse Oximetry 95 Oxygen Delivery Method Oxygen Flow Rate 2 4 07/30/25 14:40 07/30/25 14:40 07/30/25 14:45 Temperature Pulse Rate 69 Respiratory Rate 23 Blood Pressure 190/87 H Pulse Oximetry 92 Oxygen Delivery Method Oxygen Flow Rate 4 07/30/25 14:45 07/30/25 14:45 07/30/25 14:50 Temperature Pulse Rate 72 Respiratory Rate 20 Blood Pressure 179/85 H Pulse Oximetry 95 Oxygen Delivery Method Oxygen Flow Rate 2 07/30/25 14:50 07/30/25 14:50 07/30/25 14:55 Temperature Pulse Rate 70 Respiratory Rate 15 Blood Pressure 166/85 H Pulse Oximetry 96 Oxygen Delivery Method Oxygen Flow Rate 0 07/30/25 14:55 07/30/25 14:55 07/30/25 15:00 Temperature Pulse Rate 70 Respiratory Rate 16 Blood Pressure 168/84 H 165/84 H Pulse Oximetry 93 Oxygen Delivery Method Oxygen Flow Rate 07/30/25 15:00 07/30/25 15:05 07/30/25 15:05 Temperature Pulse Rate 68 71 Respiratory Rate 19 17 Blood Pressure 163/85 H Pulse Oximetry 93 94 Oxygen Delivery Method Oxygen Flow Rate 07/30/25 15:10 07/30/25 15:10 07/30/25 15:15 Temperature Pulse Rate 70 Respiratory Rate 16 Blood Pressure 163/78 H 178/86 H Pulse Oximetry 94 Oxygen Delivery Method Oxygen Flow Rate 07/30/25 15:15 07/30/25 15:20 07/30/25 15:20 Temperature Pulse Rate 70 71 Respiratory Rate 27 H Blood Pressure 171/80 H Pulse Oximetry 94 95 Oxygen Delivery Method Oxygen Flow Rate 07/30/25 15:25 07/30/25 15:25 07/30/25 15:30 Temperature Pulse Rate 73 Respiratory Rate 14 Blood Pressure 167/81 H 153/71 H Pulse Oximetry 95 Oxygen Delivery Method Oxygen Flow Rate 07/30/25 15:30 07/30/25 15:35 07/30/25 15:35 Temperature Pulse Rate 76 76 Respiratory Rate Blood Pressure 153/75 H Pulse Oximetry 97 96 Oxygen Delivery Method Oxygen Flow Rate 07/30/25 17:30 Temperature Pulse Rate 74 Respiratory Rate Blood Pressure 152/71 H Pulse Oximetry 95 Oxygen Delivery Method Oxygen Flow Rate MDM - Fall <Katie Cardenas PA-C - Last Filed: 07/30/25 18:27> Medical Records Attestation: I reviewed the patient's medical records. Lab Data 07/30/25 12:27 07/30/25 12:27 Labs: Lab Results 07/30/25 Range/Units 12:27 WBC 10.2 (4.5-11.0) X10^3/uL RBC 5.03 (4.5-5.9) X10^6/uL Hgb 14.6 (13.5-17.5) g/dL Hct 42.8 (41-53) % MCV 85.0 (80-100) fL MCH 29.1 (26-34) PG MCHC 34.2 (30-36) % RDW 15.0 H (11.6-14.8) % Plt Count 289 (150-400) X10^3/uL Neut % (Auto) 68.5 (50-75) % Lymph % (Auto) 17.3 L (25-40) % Wilson % (Auto) 7.7 (3-14) % Eos % (Auto) 5.2 H (2-4) % Baso % (Auto) 1.3 (0-2) % Neut # (Auto) 7000 (4861-1595) /uL Lymph # (Auto) 1800 (0426-9167) /uL Wilson # (Auto) 800 (0-900) /uL Eos # (Auto) 500 H (0-450) /uL Baso # (Auto) 100 (0-100) /uL PT 11.7 (9.4-12.5) SECONDS INR 1.0 (0.9-1.3) APTT 29 (25.1-36.5) SECONDS Sodium 133 L (137-145) mmol/L Potassium 4.6 (3.4-5.1) mmol/L Chloride 101 (98-107) mmol/L Carbon Dioxide 20 L (22-32) mmol/L BUN 18 (9-20) mg/dL Creatinine 0.98 (0.66-1.25) mg/dL Estimated GFR > 60 (>60) mL/min BUN/Creatinine Ratio 18.4 (6-22) Glucose 351 H (70-99) mg/dL Calcium 9.2 (8.4-10.2) mg/dL Total Bilirubin 0.3 (0.2-1.3) mg/dL AST 32 (17-59) IU/L ALT 36 (<50) IU/L Alkaline Phosphatase 70 (38-126) U/L Total Protein 7.9 (6.3-8.2) g/dL Albumin 4.6 (3.5-5.0) g/dL Globulin 3.3 (1.7-4.1) g/dL Albumin/Globulin Ratio 1.4 (1.0-2.8) Imaging Data L Shoulder XR: Radiologist's Impression: PROCEDURE: XR SHOULDER LT MIN 2V INDICATIONS: fall shoulder pain TECHNIQUE: 2 views of the shoulder were acquired. COMPARISON: None. FINDINGS: Bones: Inferior and somewhat medial dislocation of the humeral head. Fracture fragment is present adjacent to the posterior humeral head/glenoid. Soft tissues: No suspicious soft tissue calcifications. IMPRESSION: Anterior dislocation with likely fracture of the glenoid or posterior humeral head not well characterized on current exam. Dictated by: Nupur Davila M.D. on 07/30/2025 at 13:43 Approved by: Nupur Davila M.D. on 07/30/2025 at 13:44 Post-reduction XR: Radiologist's Impression: PROCEDURE: XR SHOULDER LT MIN 2V INDICATIONS: post reduction TECHNIQUE: To views of the shoulder were acquired. COMPARISON: [facility], CR, XR SHOULDER LT 2+ VIEWS, 07/30/2025, 12:46. FINDINGS: Bones: Glenohumeral joint appears appropriately position status post reduction. Redemonstration of humeral head fracture. No suspicious bony lesions. Visualized ribs appear intact. Soft tissues: No suspicious soft tissue calcifications. IMPRESSION: Appropriate positioning of the glenohumeral joint status post reduction. Redemonstration of humeral head fracture. Dictated by: Armnad Ivan M.D. on 07/30/2025 at 15:12 Approved by: Armand Ivan M.D. on 07/30/2025 at 15:21 CT scan - head: Radiologist's Impression: PROCEDURE: CT HEAD/BRAIN WO CON INDICATIONS: fall down stairs TECHNIQUE: Noncontrast 4.5 mm thick angled axial sections acquired from the foramen magnum to the vertex, with coronal and sagittal reformats. For radiation dose reduction, the following was used: automated exposure control, adjustment of mA and/or kV according to patient size. COMPARISON: [facility], CT, HEAD WITHOUT CONTRAST, 12/03/2017, 0:03. FINDINGS: Image quality: Diagnostic. CSF spaces: Basal cisterns are patent. No extra-axial fluid collections. The ventricles are symmetric in size and shape. Brain: No intracranial bleeds or mass effect. There is cerebral volume loss, with resultant ventricular and sulcal prominence. There are periventricular and deep white matter chronic small vessel ischemic changes. There is intracranial internal carotid artery atherosclerosis. Skull and face: Calvarium and visualized facial bones appear intact, without suspicious lesions. Sinuses: Visualized sinuses and mastoids are clear. IMPRESSION: 1. No acute intracranial process. 2. Moderate atrophy and chronic microvascular ischemic changes. Dictated by: Nupur Daivla M.D. on 07/30/2025 at 13:45 Approved by: Nupur Davila M.D. on 07/30/2025 at 13:45 CT - cervical spine: Radiologist's Impression: PROCEDURE: CT CERVICAL SPINE WO CON INDICATIONS: fall down stairs TECHNIQUE: Noncontrast 3 mm thick sections acquired from the skull base to the T4 level. Sagittal and coronal reformats were then constructed. For radiation dose reduction, the following was used: automated exposure control, adjustment of mA and/or kV according to patient size. COMPARISON: None. FINDINGS: Image quality: Excellent. Bones: No fractures or dislocations. Visualized superior ribs are intact. Soft tissues: Prevertebral soft tissues are normal in thickness. No paravertebral hematomas. No apical pneumothoraces. IMPRESSION: No displaced fracture or traumatic subluxation. Dictated by: Nupur Davila M.D. on 07/30/2025 at 13:46 Approved by: Nupur Davila M.D. on 07/30/2025 at 13:46 [facility] Narrative Medical decision making narrative: 75-year-old male with a past medical history of chronic headaches, HTN, HLD, angioedema, ADD, anxiety, depression, MICHAELLE who presents to the emergency department via EMS from home for left shoulder pain after a fall down a few stairs. Differential diagnosis includes but is not limited to left shoulder fracture, dislocation, sprain, strain, head trauma, concussion, ICH, etc. On exam the patient is in no mild distress secondary to left shoulder pain, make shift sling in place by EMS. His left arm is neurovascularly intact, no open fractures, 2+ radial pulse, sensation intact to light touch throughout the median, ulnar, radial nerve. Vital signs reveal slightly elevated blood pressure and heart rate, normal oxygen saturation, temperature, respirations. No blood thinners, no headache, neck pain, back pain or pain elsewhere in the body. Discussed case with the attending ER physician, we will obtain CT head, neck, x-ray chest and shoulder, obtain baseline labs, treat with morphine and Zofran currently. Labs reveal normal WBC count 10.2, hemoglobin 14.6 hematocrit 42.8, normal coags, glucose elevated at 351, sodium 133 corrected for glucose is 137. Normal LFTs. Discussed elevated glucose with the patient, states that he does not have known diabetes however he did eat circus peanuts for breakfast. Patient was given 1 L of IV fluids, recommended follow up with his PCP in regards to diabetes management. Initial shoulder x-ray reveals anterior dislocation with likely fracture, Orthopedic surgery was consulted and recommended reduction with postreduction x-ray and CT. Dr. Watson performed sedation reduction of left shoulder successfully with postreduction film revealing appropriate positioning of the glenohumeral joint status post reduction. Patient does have comminuted humeral head/neck fracture visualized on CT postreduction. Orthopedic surgery recommended outpatient follow up and sling. Head and neck CT revealed no acute abnormality. Patient's pain improved significantly after reduction. We had an extensive discussion about pain control, he does not take ibuprofen or acetaminophen, he was sent 2.5 mg oxycodone to use for breakthrough pain as needed in addition to supportive care. Discussed all lab and imaging results. Patient verbalized understanding of all information is agreeable with the plan, agreeable follow up with Orthopedics and with the PCP. He is stable for discharge home, came to drive him home. Dr. Watson: Patient was also seen and evaluated by myself, he is alert, appropriate, head CT CT cervical spine chest x-ray are all negative for acute change. Patient has shoulder dislocation with fracture. This was discussed with Orthopedic surgery who recommended reduction but CT imaging postreduction. Discussed with the patient risks versus benefits he is agreeable notes that he has had adverse reactions to ketamine, history of angioedema secondary to lisinopril and meloxicam. Patient notes he has had propofol in the past which he tolerates well. He does have a bridge which was removed for the procedure. Patient had procedure which he tolerated well. He did have little bit of hypoventilation, did require O2 and BVM. Post films show good reduction. CT of the shoulder was obtained as requested by Orthopedic surgery. TEVIN Cardenas reviewed with Orthopedic surgery. Patient is to follow up outpatient, continue with sling. <Renate Watson, - Last Filed: 08/01/25 21:16> Lab Data Labs: Lab Results 07/30/25 Range/Units 12:27 WBC 10.2 (4.5-11.0) X10^3/uL RBC 5.03 (4.5-5.9) X10^6/uL Hgb 14.6 (13.5-17.5) g/dL Hct 42.8 (41-53) % MCV 85.0 (80-100) fL MCH 29.1 (26-34) PG MCHC 34.2 (30-36) % RDW 15.0 H (11.6-14.8) % Plt Count 289 (150-400) X10^3/uL Neut % (Auto) 68.5 (50-75) % Lymph % (Auto) 17.3 L (25-40) % Wilson % (Auto) 7.7 (3-14) % Eos % (Auto) 5.2 H (2-4) % Baso % (Auto) 1.3 (0-2) % Neut # (Auto) 7000 (1036-8405) /uL Lymph # (Auto) 1800 (3646-9802) /uL Wilson # (Auto) 800 (0-900) /uL Eos # (Auto) 500 H (0-450) /uL Baso # (Auto) 100 (0-100) /uL PT 11.7 (9.4-12.5) SECONDS INR 1.0 (0.9-1.3) APTT 29 (25.1-36.5) SECONDS Sodium 133 L (137-145) mmol/L Potassium 4.6 (3.4-5.1) mmol/L Chloride 101 (98-107) mmol/L Carbon Dioxide 20 L (22-32) mmol/L BUN 18 (9-20) mg/dL Creatinine 0.98 (0.66-1.25) mg/dL Estimated GFR > 60 (>60) mL/min BUN/Creatinine Ratio 18.4 (6-22) Glucose 351 H (70-99) mg/dL Calcium 9.2 (8.4-10.2) mg/dL Total Bilirubin 0.3 (0.2-1.3) mg/dL AST 32 (17-59) IU/L ALT 36 (<50) IU/L Alkaline Phosphatase 70 (38-126) U/L Total Protein 7.9 (6.3-8.2) g/dL Albumin 4.6 (3.5-5.0) g/dL Globulin 3.3 (1.7-4.1) g/dL Albumin/Globulin Ratio 1.4 (1.0-2.8) MDM Narrative Medical decision making narrative: 75-year-old male with a past medical history of chronic headaches, HTN, HLD, angioedema, ADD, anxiety, depression, MICHAELLE who presents to the emergency department via EMS from home for left shoulder pain after a fall down a few stairs. Differential diagnosis includes but is not limited to left shoulder fracture, dislocation, sprain, strain, head trauma, concussion, ICH, etc. On exam the patient is in no mild distress secondary to left shoulder pain, make shift sling in place by EMS. His left arm is neurovascularly intact, no open fractures, 2+ radial pulse, sensation intact to light touch throughout the median, ulnar, radial nerve. Vital signs reveal slightly elevated blood pressure and heart rate, normal oxygen saturation, temperature, respirations. No blood thinners, no headache, neck pain, back pain or pain elsewhere in the body. Discussed case with the attending ER physician, we will obtain CT head, neck, x-ray chest and shoulder, obtain baseline labs, treat with morphine and Zofran currently. Dr. Watson: Patient was also seen and evaluated by myself, he is alert, appropriate, head CT CT cervical spine chest x-ray are all negative for acute change. Patient has shoulder dislocation with fracture. This was discussed with Orthopedic surgery who recommended reduction but CT imaging postreduction. Discussed with the patient risks versus benefits he is agreeable notes that he has had adverse reactions to ketamine, history of angioedema secondary to lisinopril and meloxicam. Patient notes he has had propofol in the past which he tolerates well. He does have a bridge which was removed for the procedure. Patient had procedure which he tolerated well. He did have little bit of hypoventilation, did require O2 and BVM. Post films show good reduction. CT of the shoulder was obtained as requested by Orthopedic surgery. TEVIN Cardenas reviewed with Orthopedic surgery. Patient is to follow up outpatient, continue with sling. Discharge Plan Departure Patient Disposition: Home Clinical Impression: Acute hyperglycemia Anterior shoulder dislocation Qualifiers: Encounter type: initial encounter Laterality: left Qualified Code(s): S43.015A - Anterior dislocation of left humerus, initial encounter Glenoid fracture of shoulder Qualifiers: Encounter type: initial encounter Fracture type: closed Laterality: left Qualified Code(s): S42.142A - Displaced fracture of glenoid cavity of scapula, left shoulder, initial encounter for closed fracture Fall Qualifiers: Encounter type: initial encounter Qualified Code(s): W19.XXXA - Unspecified fall, initial encounter Instructions: DI for Shoulder Dislocation Activity Restrictions/Additional Instructions: Dear Mr. Peck, Thank you for coming to the emergency department. I am very sorry that you had a fall today. You dislocated and fractured her left shoulder. Dr. Watson reduced the dislocation so the shoulder is now in place. I spoke with our orthopedic surgeon, Dr. Bar, who would like you to follow up with her within the next 2 weeks. Please wear the sling every day, even when sleeping to keep the shoulder in proper position. Please use [id number] pain medications as needed, and you may use the opiate pain medication for severe breakthrough pain. Please return to the emergency department if develop any new or worsening symptoms, severe pain, numbness tingling weakness of the arm or any other concerns. You have been prescribed a short course of narcotic medications. These are potentially dangerous and addictive medications that should be used carefully. While on these medications you cannot drive or operate heavy machinery. Additionally, you cannot sign legal documents or perform any duties such as this. 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 Please understand that we cannot provide further refills of narcotics or controlled substances through the ED and your pain management will need to be through your Primary Care Provider Please follow up with your primary care doctor within the next 2-3 days for ER follow-up. (If you do not have a PCP you can call [phone]. ?to schedule an appointment with an [facility] Primary Care Provider) IF YOU DEVELOP ANY NEW OR WORSENING SYMPTOMS, RETURN TO THE ER! Please read the attached instructions, they highlight more specific treatments and interventions for you at home. Thank you for letting me participate in your care, Katie Cardenas PA-C Prescriptions: No Action icatibant 30 mg/3 mL syringe 30 mg SUBCUT Q6-8H PRN (Reason: Angioedema) bupropion HCl 300 mg tablet extended release 24 hr 300 mg PO QAM Qty: 90 3RF fluoxetine [Prozac] 20 mg capsule 40 mg PO DAILY Qty: 180 3RF Rx Instructions: Take with food (DME) Respironics Dreamstation CPAP Qty: 1 Dose Instruction: As directed Patient Comments: Pressure: 6-20 cmH2O DME: Rx Instructions: As directed nitroglycerin 0.4 mg tablet, sublingual 0.4 mg sublingual Q5M PRN (Reason: esophageal spasm) Qty: 25 5RF Rx Instructions: do not exceed 3 doses per episode oxybutynin chloride 5 mg tablet 5 mg PO BID-TID PRN (Reason: bladder spasms) Qty: 270 3RF pantoprazole 40 mg tablet,delayed release (DR/EC) 40 mg PO DAILY Qty: 90 3RF dextroamphetamine-amphetamine [Adderall XR] 30 mg capsule,extended release 24hr 60 mg PO QAM Qty: 60 0RF oxycodone 5 mg tablet 2.5 - 5 mg PO Q8H PRN (Reason: pain) Qty: 12 0RF atorvastatin 20 mg tablet 20 mg PO DAILY Qty: 90 3RF hydroxyzine pamoate 25 mg capsule 25 mg PO BEDTIME PRN (Reason: sleep) gabapentin 300 mg capsule 300 mg PO BEDTIME Qty: 30 5RF carvedilol 6.25 mg tablet 6.25 mg PO BID Qty: 180 3RF Referrals: Anoop Sauceda MD [Primary Care Provider, Internal Medicine] Sharita Bar DO [Physician, Orthopedic Surgery] Referral Note: L shoulder dislocation Stand Alone Forms: Patient Portal/API
[2025-07-30] MEDS: ONDANSETRON 4 MG/2 ML INJ IV ×2 (12:37→14:10)
[2025-07-30] MEDS: MORPHINE 4 MG/ML INJ IV (12:38)
[2025-07-30 12:52] LABS: Add Manual Diff / Slide Review NO; Hematocrit 42.8 % (41-53); Hemoglobin 14.6 g/dL (13.5-17.5); Lymphocytes Absolute Auto 1800 /uL (1100-4500); Mean Corpuscular HGB Conc 34.2 % (30-36); Mean Corpuscular Hemoglobin 29.1 PG (26-34); Mean Corpuscular Volume 85.0 fL (80-100); Platelet Count 289 X10^3/uL (150-400)
[2025-07-30 12:57] LABS: INR 1.0 (0.9-1.3); Prothrombin Time 11.7 SECONDS (9.4-12.5)
[2025-07-30 13:00] LABS: PTT Partial Thromboplastin Tim 29 SECONDS (25.1-36.5)
[2025-07-30 13:01] LABS: Alanine Aminotransferase 36 IU/L (<50); Albumin 4.6 g/dL (3.5-5.0); Albumin Globulin Ratio 1.4 (1.0-2.8); Alkaline Phosphatase 70 U/L (38-126); Blood Urea Nitrogen 18 mg/dL (9-20); Calcium 9.2 mg/dL (8.4-10.2); Carbon Dioxide 20 mmol/L (22-32); Chloride 101 mmol/L (98-107); Estimated Glomerular Filt Rate > 60 mL/min (>60); Globulin 3.3 g/dL (1.7-4.1); Glucose 351 mg/dL (70-99); HEMOLYSIS < 15 (0-50); Potassium 4.6 mmol/L (3.4-5.1); Sodium 133 mmol/L (137-145); Total Protein 7.9 g/dL (6.3-8.2)
[2025-07-30] MEDS: SODIUM CHLORIDE 0.9% 1,000 ML 1000 ML IV (14:08)
--- NOTE | 2025-07-30 14:40 | DI.RAD.S_ITS ---
PROCEDURE: XR SHOULDER LT MIN 2V INDICATIONS: post reduction TECHNIQUE: To views of the shoulder were acquired. COMPARISON: [facility], , XR SHOULDER LT 2+ VIEWS, 07/30/2025, 12:46. FINDINGS: Bones: Glenohumeral joint appears appropriately position status post reduction. Redemonstration of humeral head fracture. No suspicious bony lesions. Visualized ribs appear intact. Soft tissues: No suspicious soft tissue calcifications. IMPRESSION: Appropriate positioning of the glenohumeral joint status post reduction. Redemonstration of humeral head fracture. Dictated by: Armand Ivan M.D. on 07/30/2025 at 15:12 Approved by: Armand Ivan M.D. on 07/30/2025 at 15:21
--- NOTE | 2025-07-30 14:48 | DI.CT.S_ITS ---
PROCEDURE: CT UE LT WO CON INDICATIONS: shoulder dislocation/fracture, post reduc TECHNIQUE: Noncontrast 0.75 mm thick sections acquired from the acromioclavicular joint to the inferior scapula, with coronal and sagittal reformatting. COMPARISON: [facility], CR, XR SHOULDER LT 2+ VIEWS, 07/30/2025, 14:33. FINDINGS: Image quality: Excellent. Bones: Interval reduction of previous dislocation with good anatomic alignment. There is a comminuted fracture of the humeral head/neck extending to the greater tuberosity. Fracture extends to the level of the greater tuberosity. Glenoid appears intact. Remaining osseous structures are intact. Soft tissues: Soft tissues are unremarkable. Visualized portions of the lungs are clear. IMPRESSION: Interval reduction of comminuted humeral head/neck fracture. Dictated by: Nupur Davila M.D. on 07/30/2025 at 16:23 Approved by: Nupur Davila M.D. on 07/30/2025 at 16:27
== END 2025-07-30 17:36 | disposition home or self-care (01) ==
PROVIDERS: Emergency Provider Physician Assistant; PCP Internal Medicine
DX: S43.015A Anterior dislocation of left humerus, initial encounter (principal); S42.142A Displaced fracture of glenoid cavity of scapula, left shoulder, initial encounter for closed fracture; R73.9 Hyperglycemia, unspecified; S09.90XA Unspecified injury of head, initial encounter; W10.9XXA Fall (on) (from) unspecified stairs and steps, initial encounter
CPT/HCPCS: 23675; 70450; 71045; 72125; 73030; 73200; 80053; 85025; 85610; 85730; 96361; 96374; 96375; 96376; 99152; 99153; 99284; 99285; J1171; J2272; J2405; J2704; J7030

== ENCOUNTER → 2025-08-07 10:37 | Outpatient (CLI) | payer MEDICARE, OTHER, SELFPAY ==
[2020-09-26 12:10] VITALS: PULSE 83; RESP 20; O2SAT 97
[2023-12-07 18:11] VITALS: BMI 39.5
--- NOTE | 2025-08-07 10:39 | DI.RAD.S_ITS ---
PROCEDURE: XR ELBOW LT 2V INDICATIONS: left elbow pain TECHNIQUE: 3 views of the elbow were acquired. COMPARISON: None. FINDINGS: Bones: No fractures or dislocations. No suspicious bony lesions. Soft tissues: No elbow joint effusion. No suspicious soft tissue calcifications. IMPRESSION: No acute bony abnormality or significant joint effusion. Approved by: Armando Chapman M.D. on 08/08/2025 at 18:14
== END ==
PROVIDERS: PCP Internal Medicine; Referring Provider Internal Medicine; Visit Provider Internal Medicine
DX: M25.522 Pain in left elbow (principal)
CPT/HCPCS: 73070

== ENCOUNTER → 2025-09-30 15:26 | Outpatient (CLI) | payer MEDICARE, OTHER, SELFPAY ==
[2025-08-11 13:35] VITALS: PULSE 83; RESP 20; O2SAT 97; BMI 39.5
[2025-09-30 16:47] LABS: Hemoglobin A1C% w Est Avg Glu 8.7 % (4.0-6.0)
[2025-09-30 17:06] LABS: Blood Urea Nitrogen 14 mg/dL (9-20); Calcium 9.6 mg/dL (8.4-10.2); Carbon Dioxide 23 mmol/L (22-32); Chloride 104 mmol/L (98-107); Cholesterol 173 mg/dL (140-199); Estimated Glomerular Filt Rate > 60 mL/min (>60); Glucose 151 mg/dL (70-99); HDL Cholesterol 38 mg/dL (40-60); HEMOLYSIS < 15 (0-50); Potassium 4.2 mmol/L (3.4-5.1); Sodium 138 mmol/L (137-145); Triglycerides 206 mg/dL (35-150)
[2025-09-30 17:37] LABS: Prostate Specific Antigen 0.563 ng/mL (0.10-4.00)
[2025-09-30 17:39] LABS: TSH w/ Reflex to FT4 2.62 uIU/mL (0.47-4.68)
== END ==
PROVIDERS: PCP Internal Medicine; Referring Provider Internal Medicine; Visit Provider Internal Medicine
DX: R73.01 Impaired fasting glucose (principal); E78.2 Mixed hyperlipidemia; N40.1 Benign prostatic hyperplasia with lower urinary tract symptoms; N13.8 Other obstructive and reflux uropathy
CPT/HCPCS: 36415; 80048; 80061; 83036; 84153; 84443; 84450

== ENCOUNTER → 2025-10-09 16:19 | Outpatient (CLI) | payer MEDICARE, OTHER, SELFPAY ==
[2025-08-11 13:35] VITALS: PULSE 83; RESP 20; O2SAT 97; BMI 39.5
--- NOTE | 2025-10-09 16:21 | DI.RAD.S_ITS ---
PROCEDURE: XR SHOULDER LT MIN 2V INDICATIONS: new fall/pain TECHNIQUE: 3 views of the shoulder were acquired. COMPARISON: [facility], CR, XR SHOULDER LT 2+ VIEWS, 09/11/2025, 13:33. [facility], CR, XR SHOULDER LT 2+ VIEWS, 08/11/2025, 13:04. FINDINGS: Bones: Healing comminuted fracture of the humerus greater tuberosity. Normal alignment. Moderate acromioclavicular and mild glenohumeral joint space narrowing and osteophytes. Visualized portions of the left upper lung are unremarkable. Soft tissues: No suspicious soft tissue calcifications. IMPRESSION: Healing comminuted fracture of the humerus greater tuberosity. Dictated by: Tennille Land M.D. on 10/12/2025 at 18:39 Approved by: Tennille Land M.D. on 10/12/2025 at 18:40
--- NOTE | 2025-10-09 16:21 | DI.RAD.S_ITS ---
PROCEDURE: XR TOE LT MIN 2V INDICATIONS: toe pain TECHNIQUE: 3 views of the 1st toe(s) acquired. COMPARISON: None. FINDINGS: Bones: No fractures or dislocations. No suspicious bony lesions. Mild narrowing of the 1st MTP joint with associated osteophytes. Soft tissues: Soft tissue swelling centered at the 1st MTP joint noted. IMPRESSION: No acute fracture. 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 Dictated by: Tennille Land M.D. on 10/12/2025 at 18:40 Approved by: Tennille Land M.D. on 10/12/2025 at 18:42
== END ==
LOC: RAD 16:21
PROVIDERS: PCP Internal Medicine; Referring Provider Internal Medicine; Visit Provider Internal Medicine
DX: S43.015A Anterior dislocation of left humerus, initial encounter (principal); S42.292D Other displaced fracture of upper end of left humerus, subsequent encounter for fracture with routine healing; M19.072 Primary osteoarthritis, left ankle and foot; M79.676 Pain in unspecified toe(s)
CPT/HCPCS: 73030; 73660